=== PATIENT | female | born 1945 | race Caucasian/White ===

== ENCOUNTER 2017-07-29 17:03 | Inpatient (IN) ==
[2017-07-29] MEDS ORDERED: Azithromycin 250 MG TABLET PO ONE (17:08)
[2017-07-29] MEDS ORDERED: *HR* HYDROmorphone (PF) 1 MG/ML SYRINGE IVP ONE (17:10)
[2017-07-29] MEDS ORDERED: Ondansetron 4 MG/2 ML VIAL IVP ONE (17:10)
--- NOTE | 2017-07-29 17:12 | Emergency Department Note ---
Disposition Clinical Impression: COPD (chronic obstructive pulmonary disease), Pneumonia, Hip fracture, left Disposition: Admitted As Inpatient Condition: Fair Referrals: NONE,PCP [Primary Care Provider] - Forms: ED Satisfaction Letter General Adult HPI - General Chief complaint: ED Fall Stated complaint: fall, left hip pain Time Seen by Provider: 07/29/17 17:06 Nursing Notes Reviewed: Yes Vital Signs Reviewed: Yes - Related Data Home Medications Medication Instructions Recorded Confirmed Buspirone HCl [Buspar] 10 mg PO BID 06/17/15 07/20/16 Carvedilol [Coreg] 12.5 mg PO BIDWM 06/17/15 07/20/16 Cholecalciferol (Vitamin D3) 5,000 unit PO BID 06/17/15 07/20/16 [Vitamin D] ClonazePAM [Klonopin] 1 mg PO QID 06/17/15 07/20/16 Docusate [Colace] 100 mg PO BID 06/17/15 07/20/16 Ferrous Sulfate 325 mg PO BIDWM 06/17/15 07/20/16 Fluticasone Propionate Nasal 100 mcg NS DAILY 06/17/15 07/20/16 [Flonase] Furosemide [Lasix] 80 mg PO TID 06/17/15 07/20/16 Gabapentin [Neurontin] 900 mg PO TID 06/17/15 07/20/16 Omeprazole [PriLOSEC] 20 mg PO BIDAC 06/17/15 07/20/16 Phenytoin [Dilantin] 100 mg PO TID 06/17/15 07/20/16 Polyethylene Glycol 3350 [MiraLAX] 17 gm PO DAILY 06/17/15 07/20/16 Potassium Chloride [Klor-Con 60 meq PO TID 06/17/15 07/20/16 Sprinkle] Promethazine [Phenergan] 12.5 mg PO Q4H 06/17/15 07/20/16 Scopolamine Patch [Transderm-Scop] 1.5 mg TD Q72H 06/17/15 07/20/16 Sennosides [Senna] 8.6 mg PO BID 06/17/15 07/20/16 Sertraline [Zoloft] 200 mg PO DAILY 06/17/15 07/20/16 Zolpidem [Ambien] 10 mg PO HS 06/17/15 07/20/16 FentaNYL PATCH [Duragesic] 275 mcg TD Q48H 12/14/15 07/20/16 Fluticasone/Salmeterol [Advair Hfa 2 puff IH BID 12/14/15 07/20/16 115-21 Mcg Inhaler] Ondansetron HCl [Zofran] 4 mg PO Q6H PRN 12/14/15 07/20/16 Albuterol Neb [Proventil Neb] 2.5 mg IH TID 07/06/16 07/20/16 Albuterol Sulfate [Ventolin Hfa] 2 puff IH Q4H PRN 07/06/16 07/20/16 Aspirin 325 mg PO DAILY 07/06/16 07/20/16 BuPROPion SR (12 HR) [Wellbutrin 300 mg PO DAILY 07/06/16 07/20/16 SR] GuaiFENesin ER [Mucinex] 600 mg PO BID 07/06/16 07/20/16 Ipratropium/Albuterol Neb [Duoneb] 3 ml IH Q2H PRN 07/06/16 07/20/16 Morphine Oral CONC [Roxanol] 30 mg PO Q4HR 07/06/16 07/20/16 Nitroglycerin [Nitrostat] 0.4 mg SL Q5M PRN 07/06/16 07/20/16 metOLazone [Zaroxolyn] 2.5 mg PO Q48H 07/06/16 07/20/16 Potassium Chloride [K-Adina] 40 meq PO DAILY 07/20/16 07/20/16 Tiotropium [place] [Spiriva 2 puff IH DAILY 07/20/16 07/20/16 Respimat] Previous Rx's Medication Instructions Recorded Ipratropium/Albuterol Neb [Duoneb] 3 ml IH Q6H #0 12/16/15 predniSONE [PredniSONE] 10 mg PO DAILY #30 tablet 12/16/15 Nitrofurantoin (BID) [Macrobid] 100 mg PO BID #14 capsule 07/22/16 levoFLOXacin [Levaquin] 750 mg PO DAILY #4 tablet 07/22/16 Allergies Allergy/AdvReac Type Severity Reaction Status Date / Time tetanus toxoid, adsorbed Allergy Rash Verified 06/17/15 16:10 baclofen AdvReac Confusion Verified 07/20/16 09:49 butorphanol AdvReac Confusion Verified 07/20/16 09:49 Past Medical History - Past Medical History Medical history: Reports: arthritis, atrial fibrillation, CHF, COPD, coronary artery disease, fibromyalgia, GERD, hyperlipidemia, hypertension, osteoporosis, renal disease, seizures, other Surgical history: Reports: cholecystectomy, hip replacement, orthopedic, other ( neck surgery), SOHAN/BSO, other (hernia/stomach surgery unspecified) Psychiatric history: Reports: anxiety, depression, other 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 - Social History Smoking Status: Former smoker Smokeless Tobacco Status: No Alcohol use: Reports: none Drug use: Reports: none Course Vital Signs Temperature 98 F 07/29/17 17:07 Pulse Rate 84 07/29/17 17:07 Respiratory Rate 18 07/29/17 17:07 Blood Pressure 116/55 07/29/17 17:07 O2 Sat by Pulse Oximetry 90 07/29/17 17:07 Temperature 98 F 07/29/17 17:07 Pulse Rate 140 07/29/17 18:24 Respiratory Rate 20 07/29/17 18:24 Blood Pressure 128/83 07/29/17 18:24 O2 Sat by Pulse Oximetry 86 07/29/17 18:24 Oxygen Delivery Oxygen Delivery Nasal Cannula Medical Decision Making - MDM Narrative Medical decision making narrative: This documentation is done with the assistance of Dragon dictation. There may be inaccuracies in [facility] [employer] [facility] or spelling and typographical errors. I examined this patient and my medical decision-making was reviewed with the Resident Physician. I agree with the documented findings, disposition and treatment plan as described except to the extent set forth below. Patient was seen on arrival by EMS by Dr. Meneses and myself, I agree with his evaluation and management plan, I supervised the care of the patient's stay. Patient fell while walking at the correction. She has a shortened rotated left lower extremity. Denies striking her head no lacerations no injuries noted. Where an x-ray the area. Presuming this is fractured will get presurgery labs. Plan for admission. Hip X-Ray 07/29/17 17:09 IMPRESSION: Acute displaced left intratrochanteric fracture. D/ / Elan Swartz MD / Elan Swartz MD Interpreting Provider: Elan Swartz MD Chest X-Ray 07/29/17 17:20 IMPRESSION: Multifocal airspace disease on the left suggesting pneumonia. Given the history of trauma, aspiration or contusion would be difficult to exclude. There is no pneumothorax. No acute fractures are noted. D/ / Elver Marroquin / Elver Marroquin Interpreting Provider: Elver Marroquin 1837 hrs.: She does have a fracture of her hips. I spoke with orthopedics, Dr. Dial. He is agreeing to see her in consult with admission to medicine. Also she does look like she has airspace disease and pneumonia on the left side. She does not appear to have any rib fractures there was started on antibiotics. Since she is from the nursing facility and met her. Impressions pneumonia, status post fall, left femur fracture - Lab Data Result diagrams: 07/29/17 17:17 07/29/17 17:17 Lab Results 07/29/17 07/29/17 07/29/17 Range/Units 17:17 17:17 17:17 WBC 12.3 H (4.3-11.1) K/mcL RBC 3.13 L (3.82-4.97) M/mcL Hgb 11.0 L (11.5-15.4) g/dL Hct 33.5 L (35.3-44.9) % MCV 107.0 H (83.0-100.0) fL MCH 35.1 H (28.0-33.3) pg MCHC 32.8 (31.6-35.5) g/dL RDW 13.9 (11.5-14.5) % Plt Count 138 L (140-400) K/mcL MPV 10.6 (9.4-12.4) fL Immature Gran % 0.7 (0-4) % Seg Neutrophils % 88.1 % Lymphocytes % 7.7 % Monocytes % 3.3 % Eosinophils % 0.1 % Basophils % 0.1 % Neutrophils # 10.8 H (1.6-8.9) K/mcL Lymphocytes # 0.9 (0.6-4.6) K/mcL Monocytes # 0.4 (0.0-1.3) K/mcL Eosinophils # 0.0 (0.0-0.6) K/mcL Basophils # 0.0 (0.0-0.2) K/mcL PT 13.1 H (9.4-12.1) Seconds INR 1.2 Sodium 132 L (136-145) mEq/L Potassium 3.8 (3.5-5.1) mEq/L Chloride 94 L (98-107) mEq/L Carbon Dioxide 34 H (23-29) mEq/L BUN 29 H (8-23) mg/dL Creatinine 0.70 (0.60-1.20) mg/dL Est GFR ( Amer) > 60 (> 60) Est GFR (Non-Af Amer) > 60 (> 60) BUN/Creatinine Ratio 41 H (6-26) Glucose 130 H (70-105) mg/dL Calculated Osmolality 282 (280-300) Calcium 8.6 (8.6-10.3) mg/dL Troponin I (< 0.04) ng/mL 07/29/17 Range/Units 17:17 WBC (4.3-11.1) K/mcL RBC (3.82-4.97) M/mcL Hgb (11.5-15.4) g/dL Hct (35.3-44.9) % MCV (83.0-100.0) fL MCH (28.0-33.3) pg MCHC (31.6-35.5) g/dL RDW (11.5-14.5) % Plt Count (140-400) K/mcL MPV (9.4-12.4) fL Immature Gran % (0-4) % Seg Neutrophils % % Lymphocytes % % Monocytes % % Eosinophils % % Basophils % % Neutrophils # (1.6-8.9) K/mcL Lymphocytes # (0.6-4.6) K/mcL Monocytes # (0.0-1.3) K/mcL Eosinophils # (0.0-0.6) K/mcL Basophils # (0.0-0.2) K/mcL PT (9.4-12.1) Seconds INR Sodium (136-145) mEq/L Potassium (3.5-5.1) mEq/L Chloride (98-107) mEq/L Carbon Dioxide (23-29) mEq/L BUN (8-23) mg/dL Creatinine (0.60-1.20) mg/dL Est GFR ( Amer) (> 60) Est GFR (Non-Af Amer) (> 60) BUN/Creatinine Ratio (6-26) Glucose (70-105) mg/dL Calculated Osmolality (280-300) Calcium (8.6-10.3) mg/dL Troponin I < 0.03 (< 0.04) ng/mL
[2017-07-29] MEDS ORDERED: 0.9 % Sodium Chloride 1,000 ML IVC SCH ×2 (17:15→20:30)
[2017-07-29 17:28] LABS: Basophils % 0.1 %; Eosinophils % 0.1 %; Hematocrit 33.5 % (35.3-44.9); Immature Granulocytes % 0.7 % (0-4); Lymphocytes # 0.9 K/mcL (0.6-4.6); Lymphocytes % 7.7 %; Mean Corpuscular HGB Conc 32.8 g/dL (31.6-35.5); Mean Corpuscular Hemoglobin 35.1 pg (28.0-33.3); Mean Platelet Volume 10.6 fL (9.4-12.4); Monocytes # 0.4 K/mcL (0.0-1.3); Monocytes % 3.3 %; Neutrophils # 10.8 K/mcL (1.6-8.9); Platelet Count 138 K/mcL (140-400); Red Blood Count 3.13 M/mcL (3.82-4.97); Red Cell Distribution Width 13.9 % (11.5-14.5); Segmented Neutrophils % 88.1 %
[2017-07-29 17:33] LABS: INR 1.2; Prothrombin Time 13.1 Seconds (9.4-12.1)
[2017-07-29 18:12] LABS: BUN/Creatinine Ratio 41 (6-26); Blood Urea Nitrogen 29 mg/dL (8-23); Calcium 8.6 mg/dL (8.6-10.3); Carbon Dioxide 34 mEq/L (23-29); Chloride 94 mEq/L (98-107); Glucose 130 mg/dL (70-105); Osmolality,Calculated 282 (280-300); Potassium 3.8 mEq/L (3.5-5.1); Sodium 132 mEq/L (136-145); eGFR For African Americans > 60 (> 60); eGFR For Non-African Americans > 60 (> 60)
[2017-07-29] MEDS ORDERED: 0.9 % Sodium Chloride 1,000 ML IVC ONE (18:21)
[2017-07-29] MEDS ORDERED: Ipratropium/Albuterol Neb 3 ML IH ONE (18:21)
[2017-07-29] MEDS ORDERED: Piperacillin/Tazobactam 3.375 GM in D5% in Water (Mini-Bag+) 100 ML IVPB ONE (18:36)
[2017-07-29] MEDS ORDERED: Levofloxacin 750 MG/150 ML 750 MG/150 ML BAG IVPB ONE (18:36)
[2017-07-29] MEDS ORDERED: Vancomycin 1,000 MG in D5% in Water 250 ML IVPB ONE (18:36)
--- NOTE | 2017-07-29 18:39 | Emergency Department Note ---
Disposition Clinical Impression: HCAP (healthcare-associated pneumonia) Fracture of hip, left, closed Qualifiers: Encounter type: initial encounter Qualified Code(s): S72.002A - Fracture of unspecified part of neck of left femur, initial encounter for closed fracture Disposition: Admitted As Inpatient Condition: Fair Forms: ED Satisfaction Letter Time of Disposition: 18:50 Fall HPI - General Chief Complaint: ED Fall Stated Complaint: fall, left hip pain Time Seen by Provider: 07/29/17 17:06 Source: patient, EMS Mode of arrival: EMS Limitations: no limitations Nursing Notes Reviewed: Yes Vital Signs Reviewed: Yes - History of Present Illness HPI Narrative: 72 -year-old female is here COPD, CHF, A. fib, presents after mechanical fall possible syncopal fall she says she was walking, she is at the nursing facility [facility], she fell onto her left hip. After that she could not bear any weight. Patient reports that she is also productive cough for the last couple days. Patient is chronically on oxygen she is a mouth breather and takes oxygen through her mouth Via nasal cannula. The patient denies chest pain, abdominal pain, head injury. She denies hitting her head or her neck. Denies fever chills or hemoptysis. 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 Denies: headache, neck pain, numbness, chest pain - Related Data Home Medications Medication Instructions Recorded Confirmed Buspirone HCl [Buspar] 10 mg PO BID 06/17/15 07/20/16 Carvedilol [Coreg] 12.5 mg PO BIDWM 06/17/15 07/20/16 Cholecalciferol (Vitamin D3) 5,000 unit PO BID 06/17/15 07/20/16 [Vitamin D] ClonazePAM [Klonopin] 1 mg PO QID 06/17/15 07/20/16 Docusate [Colace] 100 mg PO BID 06/17/15 07/20/16 Ferrous Sulfate 325 mg PO BIDWM 06/17/15 07/20/16 Fluticasone Propionate Nasal 100 mcg NS DAILY 06/17/15 07/20/16 [Flonase] Furosemide [Lasix] 80 mg PO TID 06/17/15 07/20/16 Gabapentin [Neurontin] 900 mg PO TID 06/17/15 07/20/16 Omeprazole [PriLOSEC] 20 mg PO BIDAC 06/17/15 07/20/16 Phenytoin [Dilantin] 100 mg PO TID 06/17/15 07/20/16 Polyethylene Glycol 3350 [MiraLAX] 17 gm PO DAILY 06/17/15 07/20/16 Potassium Chloride [Klor-Con 60 meq PO TID 06/17/15 07/20/16 Sprinkle] Promethazine [Phenergan] 12.5 mg PO Q4H 06/17/15 07/20/16 Scopolamine Patch [Transderm-Scop] 1.5 mg TD Q72H 06/17/15 07/20/16 Sennosides [Senna] 8.6 mg PO BID 06/17/15 07/20/16 Sertraline [Zoloft] 200 mg PO DAILY 06/17/15 07/20/16 Zolpidem [Ambien] 10 mg PO HS 06/17/15 07/20/16 FentaNYL PATCH [Duragesic] 275 mcg TD Q48H 12/14/15 07/20/16 Fluticasone/Salmeterol [Advair Hfa 2 puff IH BID 12/14/15 07/20/16 115-21 Mcg Inhaler] Ondansetron HCl [Zofran] 4 mg PO Q6H PRN 12/14/15 07/20/16 Albuterol Neb [Proventil Neb] 2.5 mg IH TID 07/06/16 07/20/16 Albuterol Sulfate [Ventolin Hfa] 2 puff IH Q4H PRN 07/06/16 07/20/16 Aspirin 325 mg PO DAILY 07/06/16 07/20/16 BuPROPion SR (12 HR) [Wellbutrin 300 mg PO DAILY 07/06/16 07/20/16 SR] GuaiFENesin ER [Mucinex] 600 mg PO BID 07/06/16 07/20/16 Ipratropium/Albuterol Neb [Duoneb] 3 ml IH Q2H PRN 07/06/16 07/20/16 Morphine Oral CONC [Roxanol] 30 mg PO Q4HR 07/06/16 07/20/16 Nitroglycerin [Nitrostat] 0.4 mg SL Q5M PRN 07/06/16 07/20/16 metOLazone [Zaroxolyn] 2.5 mg PO Q48H 07/06/16 07/20/16 Potassium Chloride [K-Adina] 40 meq PO DAILY 07/20/16 07/20/16 Tiotropium [place] [Spiriva 2 puff IH DAILY 07/20/16 07/20/16 Respimat] Previous Rx's Medication Instructions Recorded Ipratropium/Albuterol Neb [Duoneb] 3 ml IH Q6H #0 12/16/15 predniSONE [PredniSONE] 10 mg PO DAILY #30 tablet 12/16/15 Nitrofurantoin (BID) [Macrobid] 100 mg PO BID #14 capsule 07/22/16 levoFLOXacin [Levaquin] 750 mg PO DAILY #4 tablet 07/22/16 Allergies Allergy/AdvReac Type Severity Reaction Status Date / Time tetanus toxoid, adsorbed Allergy Rash Verified 06/17/15 16:10 baclofen AdvReac Confusion Verified 07/20/16 09:49 butorphanol AdvReac Confusion Verified 07/20/16 09:49 All systems ED: reviewed and negative except as stated. Review of Systems: As Per HPI Constitutional: Reports: weakness. Denies: fever Eyes: Denies: eye pain ENT ED: Denies: ear pain Cardiovascular: Denies: chest pain, palpitations Respiratory: Reports: as per HPI, cough, dyspnea, sputum production Gastrointestinal: Denies: abdominal pain, nausea Genitourinary: Denies: urgency, dysuria Musculoskeletal: Reports: as per HPI, joint swelling, arthralgia. 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 Eyes: PERRLA, sclera anicteric ENT & Mouth: MM dry Neck: normal inspection, neck is supple Resp: Managed at the bases bilaterally, scattered wheezes. CV: RRR, no m/g/r GI: normal inspection, soft, no guarding or rigidity Neuro: A&O3, CNII-XII grossly intact, BERKOWITZ MSK: Externally rotated shortened left lower extremity, with tenderness to palpation with range of motion of the hip even gentle range of motion elicits pain, patient with notable deformity of the hip, neurovascularly intact distally Skin: Poor skin turgor - General Limitations: no limitations General appearance: alert, in no apparent distress Course Course Narrative: 72-year-old female complaining of left hip pain status post fall, question if it was syncopal or not vide EKG, chest x-ray basic lab work given her age and comorbidity suspect that she has a hip fracture. - Reevaluation(s) Reevaluation #1: Patient is evidence of both a hip fracture and a left lower lobe pneumonia, leukocytosis we will start her on H Antibiotics given that she is in a nursing facility, no criteria for sepsis added blood cultures lactate vancomycin, Zosyn , Levaquin admitted to the hospitalist service Dr. Mccallum with orthopedic consult for the hip fracture. Time: 18:50 - Consultations Consultation #1: Yojana consulted for left hip intratrochanteric fx. Will see in hospital admitted to Hospitalist Vital Signs Temperature 98 F 07/29/17 17:07 Pulse Rate 84 07/29/17 17:07 Respiratory Rate 18 07/29/17 17:07 Blood Pressure 116/55 07/29/17 17:07 O2 Sat by Pulse Oximetry 90 07/29/17 17:07 Temperature 98 F 07/29/17 17:07 Pulse Rate 140 07/29/17 18:24 Respiratory Rate 20 07/29/17 18:24 Blood Pressure 128/83 07/29/17 18:24 O2 Sat by Pulse Oximetry 86 07/29/17 18:24 Oxygen Delivery Oxygen Delivery Nasal Cannula Fall - Differential Diagnosis Likely: syncope, traumatic injury, arrhythmia - Medical Records Medical records reviewed: Yes I reviewed the patient's medical records. - Lab Data Lab results reviewed: Yes I reviewed the patient's lab results. Result diagrams: 07/29/17 17:17 07/29/17 17:17 Lab Results 07/29/17 07/29/17 07/29/17 Range/Units 17:17 17:17 17:17 WBC 12.3 H (4.3-11.1) K/mcL RBC 3.13 L (3.82-4.97) M/mcL Hgb 11.0 L (11.5-15.4) g/dL Hct 33.5 L (35.3-44.9) % MCV 107.0 H (83.0-100.0) fL MCH 35.1 H (28.0-33.3) pg MCHC 32.8 (31.6-35.5) g/dL RDW 13.9 (11.5-14.5) % Plt Count 138 L (140-400) K/mcL MPV 10.6 (9.4-12.4) fL Immature Gran % 0.7 (0-4) % Seg Neutrophils % 88.1 % Lymphocytes % 7.7 % Monocytes % 3.3 % Eosinophils % 0.1 % Basophils % 0.1 % Neutrophils # 10.8 H (1.6-8.9) K/mcL Lymphocytes # 0.9 (0.6-4.6) K/mcL Monocytes # 0.4 (0.0-1.3) K/mcL Eosinophils # 0.0 (0.0-0.6) K/mcL Basophils # 0.0 (0.0-0.2) K/mcL PT 13.1 H (9.4-12.1) Seconds INR 1.2 Sodium 132 L (136-145) mEq/L Potassium 3.8 (3.5-5.1) mEq/L Chloride 94 L (98-107) mEq/L Carbon Dioxide 34 H (23-29) mEq/L BUN 29 H (8-23) mg/dL Creatinine 0.70 (0.60-1.20) mg/dL Est GFR ( Amer) > 60 (> 60) Est GFR (Non-Af Amer) > 60 (> 60) BUN/Creatinine Ratio 41 H (6-26) Glucose 130 H (70-105) mg/dL Calculated Osmolality 282 (280-300) Calcium 8.6 (8.6-10.3) mg/dL Troponin I (< 0.04) ng/mL 07/29/17 Range/Units 17:17 WBC (4.3-11.1) K/mcL RBC (3.82-4.97) M/mcL Hgb (11.5-15.4) g/dL Hct (35.3-44.9) % MCV (83.0-100.0) fL MCH (28.0-33.3) pg MCHC (31.6-35.5) g/dL RDW (11.5-14.5) % Plt Count (140-400) K/mcL MPV (9.4-12.4) fL Immature Gran % (0-4) % Seg Neutrophils % % Lymphocytes % % Monocytes % % Eosinophils % % Basophils % % Neutrophils # (1.6-8.9) K/mcL Lymphocytes # (0.6-4.6) K/mcL Monocytes # (0.0-1.3) K/mcL Eosinophils # (0.0-0.6) K/mcL Basophils # (0.0-0.2) K/mcL PT (9.4-12.1) Seconds INR Sodium (136-145) mEq/L Potassium (3.5-5.1) mEq/L Chloride (98-107) mEq/L Carbon Dioxide (23-29) mEq/L BUN (8-23) mg/dL Creatinine (0.60-1.20) mg/dL Est GFR ( Amer) (> 60) Est GFR (Non-Af Amer) (> 60) BUN/Creatinine Ratio (6-26) Glucose (70-105) mg/dL Calculated Osmolality (280-300) Calcium (8.6-10.3) mg/dL Troponin I < 0.03 (< 0.04) ng/mL - Radiology Data Radiology results reviewed: Yes I reviewed the patient's radiology results. Hip X-Ray 07/29/17 17:09 IMPRESSION: Acute displaced left intratrochanteric fracture. D/ / Elan Swartz MD / Elan Swartz MD Interpreting Provider: Elan Swartz MD Chest X-Ray 07/29/17 17:20 IMPRESSION: Multifocal airspace disease on the left suggesting pneumonia. Given the history of trauma, aspiration or contusion would be difficult to exclude. There is no pneumothorax. No acute fractures are noted. D/ / Elver Marroquin / Elver Marroquin Interpreting Provider: Elver Marroquin - EKG Data EKG attestation: Yes I reviewed and interpreted this EKG. EKG shows normal: sinus rhythm (H a fibrillation rate of 133 QRS [address] segment elevations or depressions, irregularly irregular rhythm.) Rate: tachycardia
[2017-07-29] MEDS ORDERED: *HR* HYDROcodone/Acet 5/325 mg TABLET PO PRN (19:52)
[2017-07-29] MEDS ORDERED: Acetaminophen 325 MG TABLET PO PRN (19:52)
[2017-07-29] MEDS ORDERED: Naloxone 0.4 MG/ML INJ IVP PRN (19:52)
[2017-07-29] MEDS ORDERED: Vancomycin 1,250 MG in D5% in Water 250 ML IVPB SCH (20:00)
[2017-07-29] MEDS ORDERED: Ipratropium/Albuterol Neb 3 ML IH PRN (20:02)
[2017-07-29] MEDS ORDERED: Nitroglycerin 0.4 MG TAB.SUBL SL PRN (20:10)
[2017-07-29] MEDS ORDERED: Atropine Sulfate 1% 40 DROP/2 ML BOTTLE SL PRN (20:10)
[2017-07-29] MEDS ORDERED: Bisacodyl 10 MG RECTAL SUPPOSITORY RC PRN (20:10)
[2017-07-29] MEDS ORDERED: dilTIAZem HCl 100 MG in D5% in Water 50 ML IVC SCH (20:15)
[2017-07-29] MEDS ORDERED: metOLazone 2.5 MG TABLET PO SCH (20:15)
--- NOTE | 2017-07-29 20:58 | Internal Med History&Physical ---
Date of Encounter: 07/29/17 Time of Encounter: 20:00 Assessment and Plan (1) Atrial fibrillation with RVR Current visit: Yes Status: Acute Pt developed A Fib RVR in ER,change to sinus before the cardizem drip started. Pt said she has Hx of A Fib but not on anticoagulation except ASA. - Continuous cardiac monitoring - Cardizem drip as needed. - No A fib recorder in chart. - Pt may need surgery, will consult cardio to evaluate risks. (2) DVT prophylaxis Current visit: Yes Status: Acute Heparin SC (3) Acute on chronic respiratory failure with hypoxia Current visit: No Status: Acute Due to COPD exacerbation and pneumonia. Place pt on BiPAP to support oxygenization. (4) COPD exacerbation Current visit: No Status: Resolved Pt has increased O2 requirement. Diffused ronchi b/l, Hx of COPD. Consider COPD exacerbation. - Cont abx, steroid, and bronchidilator - Supportive and symptamatic treatment. - Pulmonology consult to evaluate surgery risk and perioperative management. (5) Sepsis Current visit: No Status: Acute Pt meet sepsis criteria with leukocytosis and tachycardia and desaturation. Initial lactate 0.5. - Cont IVF. - Cont abx. Qualifiers: Sepsis type: Pneumococcus Qualified Code(s): A40.3 - Sepsis due to Streptococcus pneumoniae (6) HCAP (healthcare-associated pneumonia) Current visit: Yes Status: Acute Pt's CXR shows pneumonia. [place] is [place]. Treat pt as HCAP - Vanco, zosyn, and levaquin started from ER, will cont. - F/U blood and sputum culture to adjust Abx. - Check Flu test. Pt is at high risk because she is on vanco, need close monitoring. (7) Fracture of hip, left, closed Current visit: Yes Status: Acute Pain management. Closely monitor pt. DVT prophylaxis. - Orthopedic consult informed. Qualifiers: Encounter type: initial encounter Qualified Code(s): S72.002A - Fracture of unspecified part of neck of left femur, initial encounter for closed fracture Internal Medicine - H&P: HPI Chief complaint: Fall Admitted From: Long-term Nursing Facility Plans for Post Hospital Care: Transfer Alf Facility History of present illness: Ms. Najera is a 72 year old female with Hx of COPD, HTN, CAD s/p stent, CHF, A Fib? [facility] for fall and left hip pain. Pt said she trapped and fell. Denies loss of consciousness. Pt denies head injury. Pt c/o pain of left shoulder, low back and left hip. Pt also c/o cough with yellowish sputum for 5 days, subjective fever, runny nose. Pt denies sore throat or SOB. Pt was found low saturation to 80s. She c/o chest pain but seems it is due to fall. In ER, pt was found left intratrochanteric fracture. She was also found left side pneumonia. Pt was admitted for further management. I discussed with pt regarding CODE STATUS. She clearly told me no CPR but accept intubation. DNRCCA placed. Past Med Surg Social Fam HX - Past Medical History Medical history: arthritis, atrial fibrillation, CHF, COPD, coronary artery disease, fibromyalgia, GERD, hyperlipidemia, hypertension, osteoporosis, renal disease, seizures, other Psychiatric history: anxiety, depression, other - Past Surgical History Surgical History: cholecystectomy, hip replacement, orthopedic, other (neck surgery), SOHAN/BSO, other (hernia/stomach surgery unspecified) - Social History Smoking Status: Former smoker Smokeless Tobacco Status: No Alcohol use: none Drug use: none - Family History Father Living Status: Hx Family Cardiac Disorders: Yes ([place]) Mother Living Status: Hx Family Cancer: Yes (leukemia) Sister Living Status: Hx Family Cardiac Disorders: No Hx Family Respiratory Disorders: No Hx Family Cancer: No Hx Family GI Disorders: No Hx Family Endocrine Disorder: No Hx Family Neuromuscular Disorders: No Hx Family Neurologic Disorders: No Hx Family HEENT Disorders: No Hx Family Autoimmune Disorders: No Brother Living Status: Hx Family Cardiac Disorders: Yes ([place]) Hx Family Neurologic Disorders: Yes (CVA) Internal Medicine - H&P: Meds ClonazePAM [Klonopin] 1 mg PO TID 06/17/15 [History] Docusate [Colace] 100 mg PO BID 06/17/15 [History] Fluticasone Propionate Nasal [Flonase] 100 mcg NS DAILY 06/17/15 [History] Furosemide [Lasix] 80 mg PO TID 06/17/15 [History] Omeprazole [PriLOSEC] 20 mg PO BIDAC 06/17/15 [History] Phenytoin [Dilantin] 100 mg PO TID 06/17/15 [History] Polyethylene Glycol 3350 [MiraLAX] 17 gm PO DAILY 06/17/15 [History] Potassium Chloride [Klor-Con Sprinkle] 60 meq PO TID 06/17/15 [History] Promethazine [Phenergan] 12.5 mg PO Q4H 06/17/15 [History] Sennosides [Senna] 8.6 mg PO BID 06/17/15 [History] Sertraline [Zoloft] 200 mg PO DAILY 06/17/15 [History] Ipratropium/Albuterol Neb [Duoneb] 3 ml IH Q6H #0 12/16/15 [Rx] Albuterol Neb [Proventil Neb] 2.5 mg IH TID 07/06/16 [History] Aspirin 325 mg PO DAILY 07/06/16 [History] BuPROPion SR (12 HR) [Wellbutrin SR] 300 mg PO DAILY 07/06/16 [History] GuaiFENesin ER [Mucinex] 600 mg PO BID 07/06/16 [History] Ipratropium/Albuterol Neb [Duoneb] 3 ml IH Q4H PRN 07/06/16 [History] Morphine Oral CONC [Roxanol] 30 mg PO Q2H 07/06/16 [History] Nitroglycerin [Nitrostat] 0.4 mg SL Q5M PRN 07/06/16 [History] metOLazone [Zaroxolyn] 2.5 mg PO Q48H 07/06/16 [History] Acetaminophen [Tylenol 650mg SUPP] 650 mg RC Q6H PRN 07/29/17 [History] Amino Acids/Protein Hydrolys [Pro-Stat Awc Liquid Packet] 30 ml PO DAILY [History] Atropine Sulfate in 0.9% NaCl [Atropine 0.01%-Ns Eye Drops] 2 drop SL Q2H PRN [History] Bisacodyl [Dulcolax] 10 mg RC DAILY PRN 07/29/17 [History] Buspirone HCl [Buspar] 20 mg PO BID 07/29/17 [History] Calcium Polycarbophil [Fibercon] 1,250 mg PO BID 07/29/17 [History] Carvedilol 12.5 mg PO BID 07/29/17 [History] Dexamethasone [Decadron] 4 mg PO DAILY 07/29/17 [History] FentaNYL PATCH [Duragesic] 200 mcg TD Q72H 07/29/17 [History] Gabapentin [Neurontin] 800 mg PO TID 07/29/17 [History] Hyoscyamine SL [Levsin SL] 0.125 - 0.25 mg SL Q2H PRN 07/29/17 [History] LORazepam [Ativan] 1 mg PO Q4H 07/29/17 [History] Magnesium Oxide [Mag-Ox] 400 mg PO BID 07/29/17 [History] Melatonin 10 mg PO HS 07/29/17 [History] Oxycodone HCl [Roxicodone 30 MG Immed Release] 30 mg PO Q4H PRN 07/29/17 [ History] Primidone [Mysoline] 50 mg PO HS 07/29/17 [History] 3 Allergy/AdvReac Type Severity Reaction Status Date / Time tetanus toxoid, adsorbed Allergy Rash Verified 06/17/15 16:10 baclofen AdvReac Confusion Verified 07/20/16 09:49 butorphanol AdvReac Confusion Verified 07/20/16 09:49 All Systems PM: A 10-system review of systems was performed and is negative for pertinent findings except as documented above in the HPI. - Constitutional Vitals: Temp Pulse Resp BP Pulse Ox 98.8 F 69 16 113/73 92 07/29/17 20:20 07/29/17 20:20 07/29/17 20:20 07/29/17 20:20 07/29/17 20:20 General appearance: Present: mild distress, A&O X 3, answers questions appropriately - Head Head exam: Present: atraumatic, normocephalic - Eye Eye exam: Present: PERRL, conjuntiva pink, sclera anicteric Pupils: Present: PERRL - Neck Neck exam general surgery: Present: supple, trachea midline. Absent: lymphadenopathy - Respiratory Respiratory exam: Present: CTAB, rhonchi (Diffused ronchi b/l, Left > Rt). Absent: accessory muscle use, rales, wheezes - Cardiovascular Cardiovascular exam: Present: irregular rhythm, +S1, +S2, tachycardia. Absent: diastolic murmur, gallop, rubs, systolic murmur - GI/Abdominal GI/Abdominal exam: Present: normal bowel sounds, soft, no peritoneal signs. Absent: distended, tenderness - Extremities Exam Extremities exam: Present: warm, radial pulses palpable and symmetrical. Absent : calf tenderness, cyanotic, pedal edema Additional comments: Left LE ROM limited due to pain, Low back pain, left shoulder pain on passive movement. - Neurological Exam Neurological exam: Present: CN II-XII intact, oriented X3, no focal deficits. Absent: pronater drift, facial droop, speech deficit - Skin Skin exam: Present: dry, intact Internal Med - H&P Results - Labs CBC & Chem 7: 07/29/17 17:17 07/29/17 17:17 - EKG Data -: EKG Interpreted by Myself (A Fib RVR) Rate: tachycardia
[2017-07-29] MEDS ORDERED: Piperacillin/Tazobactam 3.375 GM/200 ML BAG IVPB SCH (21:00)
[2017-07-29] MEDS: *HR* LORazepam 1 MG TABLET PO SCH (21:55)
[2017-07-29] MEDS: *HR* HYDROmorphone (PF) 1 MG/ML SYRINGE IVP PRN (22:03)
[2017-07-29] MEDS: Ipratropium/Albuterol Neb 3 ML IH SCH (22:20)
[2017-07-29] MEDS: *HR* FentaNYL PATCH 100 MCG PATCH TD SCH ×2 (23:28→23:37)
[2017-07-29] MEDS: Magnesium Oxide 400 MG TABLET PO SCH (23:39)
[2017-07-29] MEDS: Primidone 50 MG TABLET PO SCH (23:39)
[2017-07-29] MEDS: Sennosides 8.6 MG TABLET PO SCH (23:39)
[2017-07-30] MEDS: Gabapentin 400 MG CAPSULE PO SCH ×4 (00:02→22:29)
[2017-07-30] MEDS: Furosemide 40 MG TABLET PO SCH ×4 (00:02→16:20)
[2017-07-30] MEDS: Vancomycin 1,250 MG in D5% in Water 250 ML IVPB SCH ×3 (00:33→22:30)
[2017-07-30] MEDS: methylPREDNISolone 125 MG/2 ML VIAL IVP SCH ×3 (00:33→14:36)
[2017-07-30] MEDS: *HR* LORazepam 1 MG TABLET PO SCH ×7 (00:50→22:30)
[2017-07-30] MEDS: Ipratropium/Albuterol Neb 3 ML IH SCH ×4 (03:59→21:33)
[2017-07-30] MEDS: *HR* HYDROmorphone (PF) 1 MG/ML SYRINGE IVP PRN ×3 (04:10→15:50)
[2017-07-30 06:05] LABS: Basophils % 0.1 %; Hematocrit 30.7 % (35.3-44.9); Immature Granulocytes % 1.2 % (0-4); Lymphocytes # 0.4 K/mcL (0.6-4.6); Lymphocytes % 4.8 %; Mean Corpuscular HGB Conc 32.6 g/dL (31.6-35.5); Mean Corpuscular Volume 107.3 fL (83.0-100.0); Mean Platelet Volume 10.2 fL (9.4-12.4); Monocytes # 0.3 K/mcL (0.0-1.3); Monocytes % 3.3 %; Neutrophils # 7.3 K/mcL (1.6-8.9); Nucleated Red Blood Cells 0.2 /100 WBC (0); Platelet Count 114 K/mcL (140-400); Red Blood Count 2.86 M/mcL (3.82-4.97); Red Cell Distribution Width 13.7 % (11.5-14.5); Segmented Neutrophils % 90.6 %
[2017-07-30] MEDS: *HR* Heparin 5,000 UNIT/ML VIAL SQ SCH ×2 (06:12→16:20)
[2017-07-30 06:36] LABS: BUN/Creatinine Ratio 33 (6-26); Blood Urea Nitrogen 19 mg/dL (8-23); Calcium 8.5 mg/dL (8.6-10.3); Carbon Dioxide 37 mEq/L (23-29); Chloride 95 mEq/L (98-107); Glucose 137 mg/dL (70-105); Magnesium 2.2 mg/dL (1.6-2.6); Osmolality,Calculated 292 (280-300); Potassium 4.1 mEq/L (3.5-5.1); Sodium 139 mEq/L (136-145); eGFR For African Americans > 60 (> 60); eGFR For Non-African Americans > 60 (> 60)
[2017-07-30 06:39] LABS: Thyroid Stimulating Hormone 0.272 mcIU/mL (0.340-5.600)
[2017-07-30] MEDS: Levofloxacin 750 MG/150 ML 750 MG/150 ML BAG IVPB SCH (08:31)
[2017-07-30] MEDS: BuPROPion SR (12 HR) 150 MG TABLET PO SCH (08:32)
[2017-07-30] MEDS: Magnesium Oxide 400 MG TABLET PO SCH ×2 (08:34→22:29)
[2017-07-30] MEDS: Aspirin 325 MG TABLET PO SCH (08:35)
[2017-07-30] MEDS: Sennosides 8.6 MG TABLET PO SCH ×2 (08:35→22:28)
[2017-07-30] MEDS: clonazePAM 1 MG TABLET PO SCH ×4 (08:36→22:29)
[2017-07-30 08:49] LABS: Triiodothyronine (T3) Total 0.7 ng/mL (0.87-1.78)
[2017-07-30] MEDS ORDERED: *HR* FentaNYL PATCH 100 MCG PATCH TD SCH (09:00)
[2017-07-30] MEDS ORDERED: Fluticasone Propionate Nasal 50 MCG/SPRAY BOTTLE NS SCH (09:00)
[2017-07-30] MEDS: *HR* OxyCODONE Immed Rel 15 MG TABLET PO PRN ×3 (09:16→14:34)
[2017-07-30] MEDS: Piperacillin/Tazobactam 3.375 GM/200 ML BAG IVPB SCH ×2 (10:07→15:55)
--- NOTE | 2017-07-30 10:19 | Cardiology Consult Note ---
Date of Encounter: 07/30/17 Time of Encounter: 10:11 Assessment and Plan (1) Pre-operative cardiovascular examination Current Visit: Yes Status: Acute H/o CAD with previos PCI. Denies symptoms concerning for unstable angina. She does have limited mobility and is unable to do 4 mets of activity. EKG demonstrates atrial fibrillation with RVR, HR 173, borderline anteriolateral ST depression. Re-peat EKG ordered now that she is NSR. Troponin is negative x4. Check TTE. Further recommendations to follow. (2) CAD (coronary artery disease) Current Visit: Yes Status: Acute H/o remote PCI to the mLAD and mRCA. Last LHC in 2011 showed patent stents and minimal CAD. EF preserved at that time. Continue asa, statin, and bb perioperatively. Qualifiers: Coronary Disease-Associated Artery/Lesion type: [place] artery [place] vs. transplanted heart: [place] heart Associated angina: without angina Qualified Code(s): I25.10 - Atherosclerotic heart disease of [place] coronary artery without angina pectoris (3) Atrial fibrillation with RVR Current Visit: Yes Status: Acute Afib with RVR on presentation. Likely exacerbated by fall and pain. Converted to NSR spontaneously. Continue carvedilol. Documented to not be on AC due to sudden anemia after starting coumadin in the past. She is also a fall risk. Can reconsider AC in the future after surgery. SHe is a CHADS VASC =5 and high risk for CVA. Discussed with patient. Discussion w patient/family: The assessment and plan as outlined above was discussed with the patient and/or family members who expressed understanding and agreement. All questions were answered. Thank you for involving us in the care of your patient. Please call with any questions. History of Present Illness Consult date: 07/30/17 Requesting physician: Elan Nicolas Consult reason: Pre-operative risk evaluation Chief complaint: Fall History of present illness: Ms. Najera is a 72 year old female with a history of CAD s/p remote PCI, atrail fibrillation, end stage COPD on home O2, HTN, and HLD who presented from [facility] after mechanical fall. The is found to have a left hip fracture. Cardiology was consulted for pre-operative cardiovascular risk assessment. She has limited mobility and [facility]. As of note she is enrolled in hospice for her end-stage COPD. On admission she was found to be in atrial fibrillation with RVR that spontaneously resolved. She has a history of PAF. She is not on AC due to developing anemia on coumadin per out-patient cardiology report. She denies current chest pain or palpitations. Reports she uses SL NTG two times a year. The last time was 1-2 weeks ago. She denies increasing SOB or palpitations. C/o occasional pedal edema. Past Med Surg Social Fam HX - Past Medical History Medical history: arthritis, atrial fibrillation, CHF, COPD, coronary artery disease, fibromyalgia, GERD, hyperlipidemia, hypertension, osteoporosis, renal disease, seizures, other Psychiatric history: anxiety, depression, other - Past Surgical History Surgical History: cholecystectomy, hip replacement, orthopedic, other, SOHAN/BSO, other - Social History Smoking Status: Former smoker Smokeless Tobacco Status: No Alcohol use: none Drug use: none - Family History Father Living Status: Hx Family Cardiac Disorders: Yes ([place]) Mother Living Status: Hx Family Cancer: Yes (leukemia) Sister Living Status: Hx Family Cardiac Disorders: No Hx Family Respiratory Disorders: No Hx Family Cancer: No Hx Family GI Disorders: No Hx Family Endocrine Disorder: No Hx Family Neuromuscular Disorders: No Hx Family Neurologic Disorders: No Hx Family HEENT Disorders: No Hx Family Autoimmune Disorders: No Brother Living Status: Hx Family Cardiac Disorders: Yes ([place]) Hx Family Neurologic Disorders: Yes (CVA) Medications and Allergies ClonazePAM [Klonopin] 1 mg PO TID 06/17/15 [History] Docusate [Colace] 100 mg PO BID 06/17/15 [History] Fluticasone Propionate Nasal [Flonase] 100 mcg NS DAILY 06/17/15 [History] Furosemide [Lasix] 80 mg PO TID 06/17/15 [History] Omeprazole [PriLOSEC] 20 mg PO BIDAC 06/17/15 [History] Phenytoin [Dilantin] 100 mg PO TID 06/17/15 [History] Polyethylene Glycol 3350 [MiraLAX] 17 gm PO DAILY 06/17/15 [History] Potassium Chloride [Klor-Con Sprinkle] 60 meq PO TID 06/17/15 [History] Promethazine [Phenergan] 12.5 mg PO Q4H 06/17/15 [History] Sennosides [Senna] 8.6 mg PO BID 06/17/15 [History] Sertraline [Zoloft] 200 mg PO DAILY 06/17/15 [History] Ipratropium/Albuterol Neb [Duoneb] 3 ml IH Q6H #0 12/16/15 [Rx] Albuterol Neb [Proventil Neb] 2.5 mg IH TID 07/06/16 [History] Aspirin 325 mg PO DAILY 07/06/16 [History] BuPROPion SR (12 HR) [Wellbutrin SR] 300 mg PO DAILY 07/06/16 [History] GuaiFENesin ER [Mucinex] 600 mg PO BID 07/06/16 [History] Ipratropium/Albuterol Neb [Duoneb] 3 ml IH Q4H PRN 07/06/16 [History] Morphine Oral CONC [Roxanol] 30 mg PO Q2H 07/06/16 [History] Nitroglycerin [Nitrostat] 0.4 mg SL Q5M PRN 07/06/16 [History] metOLazone [Zaroxolyn] 2.5 mg PO Q48H 07/06/16 [History] Acetaminophen [Tylenol 650mg SUPP] 650 mg RC Q6H PRN 07/29/17 [History] Amino Acids/Protein Hydrolys [Pro-Stat Awc Liquid Packet] 30 ml PO DAILY [History] Atropine Sulfate in 0.9% NaCl [Atropine 0.01%-Ns Eye Drops] 2 drop SL Q2H PRN [History] Bisacodyl [Dulcolax] 10 mg RC DAILY PRN 07/29/17 [History] Buspirone HCl [Buspar] 20 mg PO BID 07/29/17 [History] Calcium Polycarbophil [Fibercon] 1,250 mg PO BID 07/29/17 [History] Carvedilol 12.5 mg PO BID 07/29/17 [History] Dexamethasone [Decadron] 4 mg PO DAILY 07/29/17 [History] FentaNYL PATCH [Duragesic] 200 mcg TD Q72H 07/29/17 [History] Gabapentin [Neurontin] 800 mg PO TID 07/29/17 [History] Hyoscyamine SL [Levsin SL] 0.125 - 0.25 mg SL Q2H PRN 07/29/17 [History] LORazepam [Ativan] 1 mg PO Q4H 07/29/17 [History] Magnesium Oxide [Mag-Ox] 400 mg PO BID 07/29/17 [History] Melatonin 10 mg PO HS 07/29/17 [History] Oxycodone HCl [Roxicodone 30 MG Immed Release] 30 mg PO Q4H PRN 07/29/17 [ History] Primidone [Mysoline] 50 mg PO HS 07/29/17 [History] 3 Allergy/AdvReac Type Severity Reaction Status Date / Time tetanus toxoid, adsorbed Allergy Rash Verified 06/17/15 16:10 baclofen AdvReac Confusion Verified 07/20/16 09:49 butorphanol AdvReac Confusion Verified 07/20/16 09:49 All Systems Review: A 10-system review of systems was performed and is negative for pertinent findings except as documented above in the HPI. Physical Examination Vital Signs, Last 4 Hours Temp Pulse Resp BP Pulse Ox 07/30/17 09:29 91 07/30/17 07:03 98.4 F 67 16 112/53 96 General: Conversant, No Apparent Distress, Other (frail elderly female) HEENT: Atraumatic, Normocephaly, Mucus Membranes Moist Neck: No JVD, Normal carotid pulses Cardiac: Reg Rate and Rhythm, Normal S1 and S2, No Murmur Lungs: Normal Breath Sounds, No Wheeze, Rales, Rhonchi Neuro: Alert and responsive, No focal deficits noted Abdomen: Soft, Non-Tender Skin: No rashes noted on visualized skin Musculoskeletal: No Chest Wall Tenderness Extremities: No Clubbing, No Cyanosis, No Edema, Normal Pulses, Other (left foot internally rotated) Results 07/30/17 05:57 07/30/17 05:57 Lab Results 07/29/17 07/30/17 07/30/17 23:54 05:57 05:57 WBC 8.1 Hgb 10.0 L Hct 30.7 L Plt Count 114 L Sodium Potassium Chloride Carbon Dioxide BUN Creatinine Glucose Calcium Magnesium Troponin I < 0.03 < 0.03 TSH 07/30/17 07/30/17 05:57 05:57 WBC Hgb Hct Plt Count Sodium 139 Potassium 4.1 Chloride 95 L Carbon Dioxide 37 H BUN 19 Creatinine 0.57 L Glucose 137 H Calcium 8.5 L Magnesium 2.2 Troponin I TSH 0.272 L - Imaging and Cardiology Echo: report reviewed Cardiac cath: report reviewed - EKG Interpretation EKG results cardiology: personally reviewed Consult Discharge Plan - Plan Referrals: NONE,PCP [Primary Care Provider] -
--- NOTE | 2017-07-30 11:27 | Internal Med Progress Note ---
Date of Encounter: 07/30/17 Time of Encounter: 10:50 - Assessment and plan (1) Acute on chronic respiratory failure with hypoxia and hypercapnia Current Visit: No Status: Resolved Assessment and plan: Secondary to COPD exacerbation and HCAP continue systemic steroids, bronchodilator support O2 supplementation Broad spectrum IV abx (Vanco, Zosyn, Levaquin), will de-escalate as clinically improves/blood culture reports f/u blood cultures will obtain respiratory viral panel bipap support monitor O2 saturation, goal O2 sat: 88-92% will closely monitor respiratory status (2) COPD exacerbation Current Visit: No Status: Acute Assessment and plan: as listed above (3) HCAP (healthcare-associated pneumonia) Current Visit: Yes Status: Acute Assessment and plan: as listed above (4) Atrial fibrillation with RVR Current Visit: Yes Status: Resolved Assessment and plan: Resolved at this time continue home dose of Carvedilol cardiology on board and consultation appreciated History of Afib, not on AC due to fall risks f/u 2D echo (5) CAD (coronary artery disease) Current Visit: Yes Status: Chronic Assessment and plan: no signs of angina present at this time continue ASA, BB, Statin Qualifiers: Coronary Disease-Associated Artery/Lesion type: [place] artery [place] vs. transplanted heart: [place] heart Associated angina: without angina Qualified Code(s): I25.10 - Atherosclerotic heart disease of [place] coronary artery without angina pectoris (6) Chronic pain Current Visit: No Status: Chronic Assessment and plan: continue home pain meds added Dilaudid 1mg IV q4h prn severe pain pt is noted to have high pain tolerance Qualifiers: Chronic pain type: other chronic pain Qualified Code(s): G89.29 - Other chronic pain (7) DVT prophylaxis Current Visit: Yes Status: Acute Assessment and plan: Heparin sQ (8) Fracture of hip, left, closed Current Visit: Yes Status: Acute Assessment and plan: continue pain control orthopedic evaluation requested Qualifiers: Encounter type: initial encounter Qualified Code(s): S72.002A - Fracture of unspecified part of neck of left femur, initial encounter for closed fracture (9) Sepsis Current Visit: No Status: Resolved Assessment and plan: secondary HCAP continue plan as listed above Qualifiers: Sepsis type: Pneumococcus Qualified Code(s): A40.3 - Sepsis due to Streptococcus pneumoniae - Subjective Interval history: Patient seen and examined at bedside. Currently saturating well on bipap. Pt reported of [facility], and uses 3-4L O2 at baseline. Noted to be on high dose narcotic medications for chronic pain. Requiring high dose of pain medications at this time. Orthopedic surgery consulted for hip fracture. Cardiology consulted for pre-op clearance. - Constitutional Vitals: Temp Pulse Resp BP Pulse Ox 98.4 F 67 12 112/53 98 07/30/17 07:03 07/30/17 07:03 07/30/17 10:45 07/30/17 10:45 07/30/17 10:45 General appearance: Present: A&O X 3 (on bipap support ), no acute distress, answers questions appropriately - Head Head exam: Present: atraumatic, normocephalic - Eye Eye exam: Present: conjuntiva pink, sclera anicteric - Respiratory Respiratory exam: Present: decreased breath sounds. Absent: accessory muscle use, respiratory distress - Cardiovascular Cardiovascular exam: Present: RRR, +S1, +S2. Absent: diastolic murmur, gallop, rubs, systolic murmur - GI/Abdominal GI/Abdominal exam: Present: normal bowel sounds, soft, no peritoneal signs. Absent: distended, tenderness - Extremities Exam Extremities exam: Present: warm, radial pulses palpable and symmetrical. Absent : calf tenderness, cyanotic, pedal edema - Neurological Exam Neurological exam: Present: alert, oriented X3 Internal Medicine: Result - Labs CBC & Chem 7: 07/30/17 05:57 07/30/17 05:57 Labs: Short CBC 07/30/17 Range/Units 05:57 WBC 8.1 (4.3-11.1) K/mcL Hgb 10.0 L (11.5-15.4) g/dL Hct 30.7 L (35.3-44.9) % Plt Count 114 L (140-400) K/mcL Neutrophils # 7.3 (1.6-8.9) K/mcL BMP 07/30/17 05:57 Sodium 139 Potassium 4.1 Chloride 95 L Carbon Dioxide 37 H BUN 19 Creatinine 0.57 L Glucose 137 H Calcium 8.5 L Cardiac Enzymes 07/29/17 07/30/17 Range/Units 23:54 05:57 Troponin I < 0.03 < 0.03 (< 0.04) ng/mL - ABG Interpretation ABG results: PT/INR, D-dimer PT 13.1 Seconds (9.4-12.1) H 07/29/17 17:17 - VTE Documentation of Mechanical Device: Intermittent pneumatic compression device Consult Discharge Plan - Plan Referrals: NONE,PCP [Primary Care Provider] -
--- NOTE | 2017-07-30 15:16 | Orthopedic Consult Note ---
Date of Encounter: 07/30/17 Time of Encounter: 15:13 History of Present Illness Chief complaint: Left hip pain HPI: Ms. Fischer is a 72 year old female who sustained an injury to her left hip when she fell at a retirement facility where she lives. Patient states that she simply fell. She had immediate left hip pain and was able to ambulate. She was brought to the emergency room where x-rays taken foot evidence of a complex left hip fracture. She is admitted for definitive management. Patient denies any other injuries. Patient does have a significant history of multiple medical problems including cardiac disease, chronic obstructive pulmonary disease and thyroid disease. She was in atrial fibrillation with a rapid ventricular response from the emergency room. This broke prior to the start of a Cardizem drip. Patient is also on chronic steroid use. She is also on chronic high-dose narcotics for chronic pain management. Complete history and physical data was reviewed. Please see the completed portion of the medical record. Pertinent orthopedic examination reveals a shortened and rotated left lower extremity. Distal neurosensory exam is grossly intact. I reviewed multiple x- rays. Shoulder x-rays on the left revealed advanced glenohumeral arthritis with acromioclavicular degenerative disease as well. There is a suggestion that there may be several small loose bodies probably within the glenohumeral joint anteriorly. Thoracic spine shows osteopenia. Lumbar spine shows osteopenia as well. No acute spine fractures identified. X-ray of the pelvis reveals a press-fit right total hip arthroplasty without current or acute complicating features. Left hip however shows a complex subtrochanteric/ peritrochanteric-type fracture with extension into the proximal diaphysis of the femur. Laboratory data includes a current normal white blood cell count, a hemoglobin of 10, platelets of 114. Impression: Displaced left subtrochanteric proximal femur fracture Recommendation: I discussed with the patient this is a surgical fracture in the adult. The other option would be bed rest with potentially using traction for a period of time though this would never give her a normal-appearing and functioning hip. The other option would be to proceed with intramedullary nailing with a long nail due to the subtrochanteric position. We discussed the surgical procedure as well as potential risks and complications including but not limited to bleeding infection blood clots nerve injury stiffness malunion nonunion and especially with leg length or rotational deformities. This addition to her high anesthesia risk up front both a cardiac and pulmonary point of view. The patient understands and is requested we proceed with surgery. She has signed informed consent for the surgical procedure. I discussed with the hospitalist the patient's wishes and the current plans. We will tentatively schedule her for surgery tomorrow morning. If her status is stable and improved and medical staff including cardiology is in agreement will proceed with surgery tomorrow. Thank you very much for allowing me to seen care for Mrs. fischer. Sincerely, Choco Dial,DO Past Med Surg Social Fam HX - Past Medical History Medical history: arthritis, atrial fibrillation, CHF, COPD, coronary artery disease, fibromyalgia, GERD, hyperlipidemia, hypertension, osteoporosis, renal disease, seizures, other Psychiatric history: anxiety, depression, other - Past Surgical History Surgical History: cholecystectomy, hip replacement, orthopedic, other, SOHAN/BSO, other - Social History Smoking Status: Former smoker Smokeless Tobacco Status: No Alcohol use: none Drug use: none - Family History Father Living Status: Hx Family Cardiac Disorders: Yes (PR) Mother Living Status: Hx Family Cancer: Yes (leukemia) Sister Living Status: Hx Family Cardiac Disorders: No Hx Family Respiratory Disorders: No Hx Family Cancer: No Hx Family GI Disorders: No Hx Family Endocrine Disorder: No Hx Family Neuromuscular Disorders: No Hx Family Neurologic Disorders: No Hx Family HEENT Disorders: No Hx Family Autoimmune Disorders: No Brother Living Status: Hx Family Cardiac Disorders: Yes (PR) Hx Family Neurologic Disorders: Yes (CVA) Medications and Allergies ClonazePAM [Klonopin] 1 mg PO TID 06/17/15 [History] Docusate [Colace] 100 mg PO BID 06/17/15 [History] Fluticasone Propionate Nasal [Flonase] 100 mcg NS DAILY 06/17/15 [History] Furosemide [Lasix] 80 mg PO TID 06/17/15 [History] Omeprazole [PriLOSEC] 20 mg PO BIDAC 06/17/15 [History] Phenytoin [Dilantin] 100 mg PO TID 06/17/15 [History] Polyethylene Glycol 3350 [MiraLAX] 17 gm PO DAILY 06/17/15 [History] Potassium Chloride [Klor-Con Sprinkle] 60 meq PO TID 06/17/15 [History] Promethazine [Phenergan] 12.5 mg PO Q4H 06/17/15 [History] Sennosides [Senna] 8.6 mg PO BID 06/17/15 [History] Sertraline [Zoloft] 200 mg PO DAILY 06/17/15 [History] Ipratropium/Albuterol Neb [Duoneb] 3 ml IH Q6H #0 12/16/15 [Rx] Albuterol Neb [Proventil Neb] 2.5 mg IH TID 07/06/16 [History] Aspirin 325 mg PO DAILY 07/06/16 [History] BuPROPion SR (12 HR) [Wellbutrin SR] 300 mg PO DAILY 07/06/16 [History] GuaiFENesin ER [Mucinex] 600 mg PO BID 07/06/16 [History] Ipratropium/Albuterol Neb [Duoneb] 3 ml IH Q4H PRN 07/06/16 [History] Morphine Oral CONC [Roxanol] 30 mg PO Q2H 07/06/16 [History] Nitroglycerin [Nitrostat] 0.4 mg SL Q5M PRN 07/06/16 [History] metOLazone [Zaroxolyn] 2.5 mg PO Q48H 07/06/16 [History] Acetaminophen [Tylenol 650mg SUPP] 650 mg RC Q6H PRN 07/29/17 [History] Amino Acids/Protein Hydrolys [Pro-Stat Awc Liquid Packet] 30 ml PO DAILY [History] Atropine Sulfate in 0.9% NaCl [Atropine 0.01%-Ns Eye Drops] 2 drop SL Q2H PRN [History] Bisacodyl [Dulcolax] 10 mg RC DAILY PRN 07/29/17 [History] Buspirone HCl [Buspar] 20 mg PO BID 07/29/17 [History] Calcium Polycarbophil [Fibercon] 1,250 mg PO BID 07/29/17 [History] Carvedilol 12.5 mg PO BID 07/29/17 [History] Dexamethasone [Decadron] 4 mg PO DAILY 07/29/17 [History] FentaNYL PATCH [Duragesic] 200 mcg TD Q72H 07/29/17 [History] Gabapentin [Neurontin] 800 mg PO TID 07/29/17 [History] Hyoscyamine SL [Levsin SL] 0.125 - 0.25 mg SL Q2H PRN 07/29/17 [History] LORazepam [Ativan] 1 mg PO Q4H 07/29/17 [History] Magnesium Oxide [Mag-Ox] 400 mg PO BID 07/29/17 [History] Melatonin 10 mg PO HS 07/29/17 [History] Oxycodone HCl [Roxicodone 30 MG Immed Release] 30 mg PO Q4H PRN 07/29/17 [ History] Primidone [Mysoline] 50 mg PO HS 07/29/17 [History] 3 Allergy/AdvReac Type Severity Reaction Status Date / Time tetanus toxoid, adsorbed Allergy Rash Verified 06/17/15 16:10 baclofen AdvReac Confusion Verified 07/20/16 09:49 butorphanol AdvReac Confusion Verified 07/20/16 09:49 All Systems Reviewed: A 10-system review of systems was performed and is negative for pertinent findings except as documented above in the HPI. Physical Exam - Constitutional Vitals: Temp Pulse Resp BP Pulse Ox 98.5 F 64 16 104/48 98 07/30/17 11:46 07/30/17 11:46 07/30/17 11:46 07/30/17 11:46 07/30/17 11:46 Results - Labs Result Diagrams: 07/30/17 05:57 07/30/17 05:57 Labs: Abnormal lab results RBC 2.86 M/mcL (3.82-4.97) L 07/30/17 05:57 Hgb 10.0 g/dL (11.5-15.4) L 07/30/17 05:57 Hct 30.7 % (35.3-44.9) L 07/30/17 05:57 MCV 107.3 fL (83.0-100.0) H 07/30/17 05:57 MCH 35.0 pg (28.0-33.3) H 07/30/17 05:57 Plt Count 114 K/mcL (140-400) L 07/30/17 05:57 Lymphocytes # 0.4 K/mcL (0.6-4.6) L 07/30/17 05:57 Nucleated RBCs/100 WBC 0.2 /100 WBC (0) H 07/30/17 05:57 PT 13.1 Seconds (9.4-12.1) H 07/29/17 17:17 Chloride 95 mEq/L (98-107) L 07/30/17 05:57 Carbon Dioxide 37 mEq/L (23-29) H 07/30/17 05:57 Creatinine 0.57 mg/dL (0.60-1.20) L 07/30/17 05:57 BUN/Creatinine Ratio 33 (6-26) H 07/30/17 05:57 Glucose 137 mg/dL (70-105) H 07/30/17 05:57 Calcium 8.5 mg/dL (8.6-10.3) L 07/30/17 05:57 TSH 0.272 mcIU/mL (0.340-5.600) L 07/30/17 05:57 Total T3 0.70 ng/mL (0.87-1.78) L 07/30/17 05:57 H & H 07/30/17 Range/Units 05:57 Hgb 10.0 L (11.5-15.4) g/dL Hct 30.7 L (35.3-44.9) % All other labs normal. - Diagnostic results Shoulder x-ray: image reviewed Hip AP/Lateral x-ray: image reviewed Thoracic AP/Lateral x-ray: image reviewed Lumbar AP/lateral x-ray: image reviewed Consult Discharge Plan - Plan Referrals: NONE,PCP [Primary Care Provider] -
[2017-07-30 17:08] LABS: Bilirubin,Urine Negative (Negative); Blood,Urine Negative (Negative); Clarity,Urine Clear (Clear); Color,Urine Yellow (Yellow); Glucose,Urine (UA) Normal (Normal); Ketones,Urine Negative (Negative); Leukocyte Esterase,Urine Negative (Negative); Nitrite,Urine Negative (Negative); Protein,Urine Negative (Neg-Trace); Specific Gravity,Urine 1.011 (1.010-1.025); Urobilinogen,Urine Normal (Normal)
[2017-07-30 18:14] LABS: Adenovirus Not Detected (Not Detect); Bordetella Pertussis Not Detected (Not Detect); Chlamydophila pneumoniae Not Detected (Not Detect); Coronavirus 229E Not Detected (Not Detect); Coronavirus HKU1 Not Detected (Not Detect); Coronavirus NL63 Not Detected (Not Detect); Coronavirus OC43 Not Detected (Not Detect); Human Metapneumovirus Not Detected (Not Detect); Human Rhinovirus/Enterovirus Not Detected (Not Detect); Influenza A Subtype 2009 H1 Not Detected (Not Detect); Influenza A Untypeable Not Detected (Not Detect); Influenza B Not Detected (Not Detect); Mycoplasma pneumoniae Not Detected (Not Detect); Parainfluenza Virus 1 Not Detected (Not Detect); Parainfluenza Virus 2 Not Detected (Not Detect); Parainfluenza Virus 3 Not Detected (Not Detect); Parainfluenza Virus 4 Not Detected (Not Detect); Respiratory Syncytial Virus Not Detected (Not Detect)
[2017-07-30] MEDS: Melatonin 3 MG TABLET PO SCH ×2 (22:29)
[2017-07-30] MEDS: Primidone 50 MG TABLET PO SCH (22:29)
[2017-07-31] MEDS: methylPREDNISolone 125 MG/2 ML VIAL IVP SCH ×3 (00:24→18:18)
[2017-07-31] MEDS: Piperacillin/Tazobactam 3.375 GM/200 ML BAG IVPB SCH ×3 (00:24→18:34)
[2017-07-31] MEDS: *HR* HYDROmorphone (PF) 1 MG/ML SYRINGE IVP PRN ×11 (00:24→20:34)
[2017-07-31] MEDS: *HR* LORazepam 1 MG TABLET PO SCH ×5 (00:25→20:33)
[2017-07-31] MEDS: Ipratropium/Albuterol Neb 3 ML IH SCH ×4 (04:30→22:30)
[2017-07-31] MEDS: *HR* Heparin 5,000 UNIT/ML VIAL SQ SCH ×2 (05:39→18:21)
[2017-07-31 05:44] LABS: Basophils % 0.1 %; Hematocrit 28.8 % (35.3-44.9); Hemoglobin 9.5 g/dL (11.5-15.4); Immature Granulocytes % 1.1 % (0-4); Lymphocytes # 0.6 K/mcL (0.6-4.6); Lymphocytes % 6.8 %; Mean Corpuscular Hemoglobin 34.5 pg (28.0-33.3); Mean Corpuscular Volume 104.7 fL (83.0-100.0); Mean Platelet Volume 10.3 fL (9.4-12.4); Monocytes # 0.4 K/mcL (0.0-1.3); Monocytes % 4.4 %; Neutrophils # 7.3 K/mcL (1.6-8.9); Platelet Count 145 K/mcL (140-400); Red Blood Count 2.75 M/mcL (3.82-4.97); Red Cell Distribution Width 13.4 % (11.5-14.5); Segmented Neutrophils % 87.6 %
[2017-07-31 06:03] LABS: BUN/Creatinine Ratio 23 (6-26); Blood Urea Nitrogen 18 mg/dL (8-23); Calcium 8.6 mg/dL (8.6-10.3); Carbon Dioxide 37 mEq/L (23-29); Chloride 91 mEq/L (98-107); Glucose 152 mg/dL (70-105); Magnesium 1.7 mg/dL (1.6-2.6); Osmolality,Calculated 287 (280-300); Potassium 3.7 mEq/L (3.5-5.1); Sodium 136 mEq/L (136-145); eGFR For African Americans > 60 (> 60); eGFR For Non-African Americans > 60 (> 60)
[2017-07-31] MEDS ORDERED: Aminoglycoside Consult 1 EACH MC ONE (08:07)
--- NOTE | 2017-07-31 10:33 | Anesthesia Evaluation PreOp ---
Date of Encounter: 07/31/17 Time of Encounter: 10:20 - Past History Planned Operation: hip nailing Cardiac History: [place], CHF, HTN, Hyperlipidemia, Arrhythmia (At time of admission was in afib with RVR, is now controlled and rhythm reverted to sinus) Pulmonary History: Former smoker, COPD ([facility] with end stage COPD. Her baseline is 4L/O2 usually but has needed up to 10 L. Is currently on Bipap to maintain O2 sats in 88-92 range. 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 History: Seizures Other Medical History: GERD Anesthesia History: No Prior Anesthetic Complications, Past Anesthesia Alcohol Use: none Drug use: none Medications and Allergies ClonazePAM [Klonopin] 1 mg PO TID 06/17/15 [History] Docusate [Colace] 100 mg PO BID 06/17/15 [History] Fluticasone Propionate Nasal [Flonase] 100 mcg NS DAILY 06/17/15 [History] Furosemide [Lasix] 80 mg PO TID 06/17/15 [History] Omeprazole [PriLOSEC] 20 mg PO BIDAC 06/17/15 [History] Phenytoin [Dilantin] 100 mg PO TID 06/17/15 [History] Polyethylene Glycol 3350 [MiraLAX] 17 gm PO DAILY 06/17/15 [History] Potassium Chloride [Klor-Con Sprinkle] 60 meq PO TID 06/17/15 [History] Promethazine [Phenergan] 12.5 mg PO Q4H 06/17/15 [History] Sennosides [Senna] 8.6 mg PO BID 06/17/15 [History] Sertraline [Zoloft] 200 mg PO DAILY 06/17/15 [History] Ipratropium/Albuterol Neb [Duoneb] 3 ml IH Q6H #0 12/16/15 [Rx] Albuterol Neb [Proventil Neb] 2.5 mg IH TID 07/06/16 [History] Aspirin 325 mg PO DAILY 07/06/16 [History] BuPROPion SR (12 HR) [Wellbutrin SR] 300 mg PO DAILY 07/06/16 [History] GuaiFENesin ER [Mucinex] 600 mg PO BID 07/06/16 [History] Ipratropium/Albuterol Neb [Duoneb] 3 ml IH Q4H PRN 07/06/16 [History] Morphine Oral CONC [Roxanol] 30 mg PO Q2H 07/06/16 [History] Nitroglycerin [Nitrostat] 0.4 mg SL Q5M PRN 07/06/16 [History] metOLazone [Zaroxolyn] 2.5 mg PO Q48H 07/06/16 [History] Acetaminophen [Tylenol 650mg SUPP] 650 mg RC Q6H PRN 07/29/17 [History] Amino Acids/Protein Hydrolys [Pro-Stat Awc Liquid Packet] 30 ml PO DAILY [History] Atropine Sulfate in 0.9% NaCl [Atropine 0.01%-Ns Eye Drops] 2 drop SL Q2H PRN [History] Bisacodyl [Dulcolax] 10 mg RC DAILY PRN 07/29/17 [History] Buspirone HCl [Buspar] 20 mg PO BID 07/29/17 [History] Calcium Polycarbophil [Fibercon] 1,250 mg PO BID 07/29/17 [History] Carvedilol 12.5 mg PO BID 07/29/17 [History] Dexamethasone [Decadron] 4 mg PO DAILY 07/29/17 [History] FentaNYL PATCH [Duragesic] 200 mcg TD Q72H 07/29/17 [History] Gabapentin [Neurontin] 800 mg PO TID 07/29/17 [History] Hyoscyamine SL [Levsin SL] 0.125 - 0.25 mg SL Q2H PRN 07/29/17 [History] LORazepam [Ativan] 1 mg PO Q4H 07/29/17 [History] Magnesium Oxide [Mag-Ox] 400 mg PO BID 07/29/17 [History] Melatonin 10 mg PO HS 07/29/17 [History] Oxycodone HCl [Roxicodone 30 MG Immed Release] 30 mg PO Q4H PRN 07/29/17 [ History] Primidone [Mysoline] 50 mg PO HS 07/29/17 [History] 3 Allergy/AdvReac Type Severity Reaction Status Date / Time tetanus toxoid, adsorbed Allergy Rash Verified 06/17/15 16:10 baclofen AdvReac Confusion Verified 07/20/16 09:49 butorphanol AdvReac Confusion Verified 07/20/16 09:49 - Meds/Allergy Pre-op Review Medications Reviewed: Yes Allergies Reviewed: Yes Beta Blockers on Current Med List: No Anesthesia Results - Labs 07/31/17 05:34 07/31/17 05:34 - Imaging EKG: report reviewed Anesthesia Exam Selected Entries 07/31/17 06:34 07/31/17 10:30 Temperature 98.3 F Pulse Rate 62 Respiratory Rate 16 Blood Pressure 124/59 O2 Sat by Pulse Oximetry 95 Fraction of Inspired Oxygen % 80 Oxygen Delivery Method BiPAP Weight: 75 kg NPO (# of Hours): over 12 hours - HEENT Pupil (Motor): Pupils equal Mallampati: I Teeth: Edentulous Oral Opening: Greater than 3 - Cardiac Rhythm: Regular Murmur: None - Pulmonary Breath Sounds: bilateral Rales (dyspneic at rest, on BIPAP) Respiratory Effort: Labored Anesthesia Assess/Plan ASA Score: 4 Modified Robert Scale for Level of Consciousness: Cooperative, oriented, and tranquil Anesthetic Plan: General Monitoring Plan: Standard Monitors Recovery Plan: PACU (Discussed with patient at length her increased anesthetic risks. Discussed that she may not be able to get off ventilator, may find herself waking up in ICU. May need to limit post operative narcotics if breathing is inadequate. Patient is aware of these issues as well as others and she wishes to proceed. She is aware she is very high risk but feels she has no real recourse.)
--- NOTE | 2017-07-31 10:37 | Internal Med Progress Note ---
Date of Encounter: 07/31/17 Time of Encounter: 10:10 - Assessment and plan (1) Acute on chronic respiratory failure with hypoxia and hypercapnia Current Visit: No Status: Acute Assessment and plan: Secondary to COPD exacerbation and HCAP continue systemic steroids, bronchodilator support O2 supplementation Broad spectrum IV abx (Vanco, Zosyn, Levaquin), will de-escalate as clinically improves/blood culture reports f/u blood cultures respiratory viral panel negative bipap support monitor O2 saturation, goal O2 sat: 88-92% will closely monitor respiratory status (2) COPD exacerbation Current Visit: No Status: Acute Assessment and plan: as listed above (3) HCAP (healthcare-associated pneumonia) Current Visit: Yes Status: Acute Assessment and plan: as listed above (4) Atrial fibrillation with RVR Current Visit: Yes Status: Resolved Assessment and plan: Resolved at this time continue home dose of Carvedilol cardiology on board and consultation appreciated History of Afib, not on AC due to fall risks 2D echo: LVEF 55-60%. Moderate pulmonary hypertension. No segmental dysfunction. Mild left ventricular diastolic dysfunction. No significant valvular dysfunction. (5) CAD (coronary artery disease) Current Visit: Yes Status: Chronic Assessment and plan: no signs of angina present at this time continue ASA, BB, Statin Qualifiers: Coronary Disease-Associated Artery/Lesion type: [place] artery [place] vs. transplanted heart: [place] heart Associated angina: without angina Qualified Code(s): I25.10 - Atherosclerotic heart disease of [place] coronary artery without angina pectoris (6) Chronic pain Current Visit: No Status: Chronic Assessment and plan: continue home pain meds Dilaudid 1mg IV q4h prn severe pain pt is noted to have high pain tolerance Qualifiers: Chronic pain type: other chronic pain Qualified Code(s): G89.29 - Other chronic pain (7) DVT prophylaxis Current Visit: Yes Status: Acute Assessment and plan: Heparin sQ (8) Fracture of hip, left, closed Current Visit: Yes Status: Acute Assessment and plan: continue pain control orthopedic evaluation evaluation appreciated scheduled for surgical repair later today (07/31/17) Qualifiers: Encounter type: initial encounter Qualified Code(s): S72.002A - Fracture of unspecified part of neck of left femur, initial encounter for closed fracture (9) Sepsis Current Visit: No Status: Resolved Assessment and plan: secondary HCAP continue plan as listed above Qualifiers: Sepsis type: Pneumococcus Qualified Code(s): A40.3 - Sepsis due to Streptococcus pneumoniae - Subjective Interval history: Patient seen and examined at bedside. Currently saturating well on bipap. Scheduled for surgery for displaced left subtrochanteric proximal femur fracture Given patient's lung disease, pt at high risk for being a difficult extubation. R/B discussed with the patient, and she wishes to proceed with surgery Cardiology evaluation appreciated, pt at intermediate risk for orthopedic surgery - Constitutional Vitals: Temp Pulse Resp BP Pulse Ox 98.3 F 62 20 124/59 95 07/31/17 06:34 07/31/17 06:34 07/31/17 10:30 07/31/17 06:34 07/31/17 10:30 General appearance: Present: A&O X 3 (on bipap support ), no acute distress, answers questions appropriately - Head Head exam: Present: atraumatic, normocephalic - Eye Eye exam: Present: conjuntiva pink, sclera anicteric - Respiratory Respiratory exam: Present: decreased breath sounds. Absent: respiratory distress, wheezes - Cardiovascular Cardiovascular exam: Present: RRR, +S1, +S2. Absent: diastolic murmur, gallop, rubs, systolic murmur - GI/Abdominal GI/Abdominal exam: Present: normal bowel sounds, soft, no peritoneal signs. Absent: distended, tenderness - Extremities Exam Extremities exam: Present: warm, radial pulses palpable and symmetrical. Absent : calf tenderness, cyanotic, pedal edema - Neurological Exam Neurological exam: Present: alert, oriented X3 Internal Medicine: Result - Labs CBC & Chem 7: 07/31/17 05:34 07/31/17 05:34 Labs: Short CBC 07/31/17 Range/Units 05:34 WBC 8.3 (4.3-11.1) K/mcL Hgb 9.5 L (11.5-15.4) g/dL Hct 28.8 L (35.3-44.9) % Plt Count 145 (140-400) K/mcL Neutrophils # 7.3 (1.6-8.9) K/mcL BMP 07/31/17 05:34 Sodium 136 Potassium 3.7 Chloride 91 L Carbon Dioxide 37 H BUN 18 Creatinine 0.77 Glucose 152 H Calcium 8.6 Urine 07/30/17 Range/Units 16:55 Urine Color Yellow (Yellow) Urine Clarity Clear (Clear) Urine pH 6.0 (5.0-8.0) pH Units Ur Specific Mobile 1.011 (1.010-1.025) Urine Protein Negative (Neg-Trace) mg/dL Urine Glucose (UA) Normal (Normal) mg/dL - ABG Interpretation ABG results: PT/INR, D-dimer PT 13.1 Seconds (9.4-12.1) H 07/29/17 17:17 - Impressions Impressions Echocardiogram 07/30/17 10:32 Impressions: LVEF 55-60%. Moderate pulmonary hypertension. No segmental dysfunction. Mild left ventricular diastolic dysfunction. No significant valvular dysfunction. Left Ventricular Wall Motion: Rest Echo Findings All wall segments showed normal motion. Findings: Study Quality * Technically adequate exam. Right Ventricle * Normal right ventricular structure and function. Left Atrium * Normal left atrial size. Right Atrium * Normal right atrial size. Aortic Valve * Trileaflet aortic valve with normal function. Interatrial Septum * No evidence of PFO by color Doppler. Aorta * Normally sized aortic root. Pericardium * The pericardium appears normal. ECG Findings * Normal sinus rhythm. Mitral Valve * Normal mitral valve structure. * Trace mitral regurgitation. * No mitral stenosis. Tricuspid Valve * Trace tricuspid regurgitation. * No tricuspid stenosis. * Estimated RVSP is 48 mmHg. * Moderate pulmonary hypertension. Pulmonic Valve * No pulmonic stenosis. * Pulmonic valve is not well visualized. * Trace pulmonic regurgitation. Left Ventricle * LVEF 55-60%. * No segmental dysfunction. * Mild left ventricular diastolic dysfunction. IVC * The IVC is dilated. * > 50% respiratory change - VTE Documentation of Mechanical Device: Graduated compression elastic hosiery Consult Discharge Plan - Plan Referrals: NONE,PCP [Primary Care Provider] -
[2017-07-31] MEDS: BuPROPion SR (12 HR) 150 MG TABLET PO SCH (10:54)
[2017-07-31] MEDS: Levofloxacin 750 MG/150 ML 750 MG/150 ML BAG IVPB SCH (10:54)
[2017-07-31] MEDS: clonazePAM 1 MG TABLET PO SCH ×2 (10:55→21:54)
[2017-07-31] MEDS: Furosemide 40 MG TABLET PO SCH ×2 (10:55→18:17)
[2017-07-31] MEDS: Aspirin 325 MG TABLET PO SCH (10:55)
[2017-07-31] MEDS ORDERED: ceFAZolin 2,000 MG in Water for inj. (sterile) 20 ML IVP ONE (11:10)
[2017-07-31] MEDS ORDERED: Acetaminophen IV 1,000 MG/100 ML INFUS..BTL ONE (11:17)
[2017-07-31] MEDS ORDERED: *HR* FentaNYL PATCH 100 MCG PATCH TD STA ×2 (11:29→15:44)
[2017-07-31] MEDS ORDERED: *HR* FentaNYL (PF) 100 MCG/2 ML VIAL ONE (11:52)
--- NOTE | 2017-07-31 14:43 | Operative Note ---
Date of procedure: 07/31/17 Pre-op diagnosis: Displaced comminuted subtrochanteric fracture left proximal femur Post-op diagnosis: same Procedure: #1. Open reduction internal fixation of left proximal femur fracture #2. Intramedullary nailing left femur fracture #3. Fluoroscopic guidance for IM nailing and ORIF left proximal femur fracture Implants: Synthes 14 mm x 340 mm x 130 degree angle left TFNA, 95 mm x 11 mm TFNA helical blade, a 5 mm distal locking screw, a 1.7 mm multiple strand cable and a 16- gauge stainless steel wire Complications: None Anesthesia: GETA Surgeon: Choco Dial Was there an assistant professor surgical technology present: No Estimated blood loss (cc): 250 Specimen: None Condition: stable Disposition: PACU Procedure in Detail: Gross findings: Preoperative x-rays revealed a complex subtrochanteric type fracture of the left proximal femur. This is associated with some arthritic changes about the left hip. Fracture was difficult to fully evaluate on plain x -rays, intraoperative fluoroscopic views taken when fracture reduction was being performed revealed a complex fracture. This had comminution into the greater trochanter as well as oblique fracture extending anterior proximal to posterior distal in the subtrochanteric region. The fracture was treated by combination of an open reduction with internal fixation utilizing wires and a cable as well as intramedullary nailing with a long nail. Multiplane fluoroscopy was used on the surgical procedure to help guide the reduction and verify ultimate fracture position and fracture implants. Procedure patient was taken to the operating room and administered a general anesthesia while on the hospital bed. Patient was then transferred to the [facility] fracture table. Left lower extremity was placed in longitudinal traction right lower extremity was positioned out of harm's way and well leg wong. Fluoroscopy was introduced and used to guide the initial reduction which was accomplished with a combination of traction slight adduction and and minimal rotation. The fracture was able to reduced into improved position though there was still some separation of the fragments. The left hip and the entire leg down past the knee were now prepped and draped in normal standard fashion for surgery. Pulmonary incision was made above the level of the trochanter. Dissection was carried to the saphenous tissues down the level of the tensor fascia julieth. This was split parallel with its fibers and dissection was carried directly down onto the greater trochanter. Initial pin was placed into the femur through the tip the greater trochanter. The trochanter was opened up with the reamer though marked comminution was noted. At this time a second incision was created laterally about the level of the lesser trochanter. This was for the open reduction as well as for placement of the helical blade. Incision was made and dissection was carried there is obtained his tissues through the fascia julieth through the vastus lateralis down to the fracture site. Marked amount of fracture Hematoma was encountered and evacuated. Fracture reduction was improved upon by placing a cerclage wire around the distal aspects of the fracture. No proximal Wyer or cable was placed due to the need to place a helical blade to the same area of the fracture. At this time the canal was reamed with the flexible reamers up to and including a size 15.5 mm. The nail length was measured and a 14 mm x 340 mm nail was selected. The nail was initially placed though I was unhappy with the persistent formulate the fracture site. For this reason the jute bag cutting machine operator hole was changed posteriorly and 8 morning type reamer was used to open up the posterior proximal trochanter. The selected nail was placed upon the first insertion jig and passed through the entrance in the trochanter across the fracture site and impacted until it was seated in appropriate position. This gave excellent approximation of the fracture in multiple planes. At this time the helical blade insertion jig was placed and guided pin was driven into the femoral head in a central position is verified with multiple planes on fluoroscopy. Pin length was measured and a 95 mm helical blade length was selected. Head and neck were then reamed. The helical blade was then placed and impacted into the subchondral bone with good purchase. The helical blade was then locked from rotation. The fracture site was now compressed. Excellent overall fixation was noted. At this time the insertion jig was removed. A 1.7 mm braided cable was then placed around the femur at the fracture site just above the level of the helical blade. This was placed below the level of the lesser trochanter. The cable was placed and tightened and then crimped and cut with excellent fixation noted. Due to the subtrochanteric type extension a decision was made to proceed with a distal locking screw. Fluoroscopy was introduced distally used to place a distal locking screw utilizing freehand technique with "perfect circles". Good purchase of the screw was noted. At this time multiplane fluoroscopy was performed verifying excellent position of the fracture implants. Wounds irrigated and closed. 2 proximal incisions were closed with #1 Vicryl in the fascia followed by combination of #1 in the deep tissue and then [address] an inverted interrupted manner immediate subcutaneous tissue followed by skin approximation of all incisions with stainless steel clips. Sterile dressings consisting of operative foam were applied and secured to the 3 incisions. Patient was then transferred from the operating table to the hospital bed and transported to the postanesthesia care unit in stable and satisfactory condition. All sponge and needle evidence for counts are correct. No specimens were sent for pathology.
[2017-07-31] MEDS ORDERED: Naloxone 0.4 MG/ML INJ IVP PRN (15:44)
[2017-07-31] MEDS ORDERED: *HR* HYDROmorphone (PF) 1 MG/ML SYRINGE IVP PRN (15:44)
[2017-07-31] MEDS ORDERED: Nitroglycerin 0.4 MG TAB.SUBL SL PRN (15:44)
[2017-07-31] MEDS ORDERED: Atropine Sulfate 1% 40 DROP/2 ML BOTTLE SL PRN (15:44)
[2017-07-31] MEDS ORDERED: Ipratropium/Albuterol Neb 3 ML IH PRN (15:44)
[2017-07-31] MEDS ORDERED: Acetaminophen 325 MG TABLET PO PRN (15:44)
[2017-07-31] MEDS ORDERED: Bisacodyl 10 MG RECTAL SUPPOSITORY RC PRN (15:44)
[2017-07-31] MEDS ORDERED: Ipratropium/Albuterol Neb 3 ML ONE (16:21)
--- NOTE | 2017-07-31 18:06 | Anesthesia Evaluation Post Op ---
Date of Encounter: 07/31/17 Time of Encounter: 15:20 - Vital Signs Vital Signs: VSS. Patient maintaining O2 saturations in low to mid 90's on Bipap. - Lungs Lungs: Rales - Airway Airway: Non-obstructed - Cardiovascular Regular Rate - Mental Status Mental Status: Alert & Oriented, Answers Appropriately - Nausea Vomiting Nausea Vomiting: Not Present - Hydration Hydration: NPO - Discharge PostOp Status: Transfer Patient to floor (Patient is in the same, if not better pulmonary condition than when she arrived to the OR. I feel she is in as good a condition cardiopulmonary sprague that we can possibly hope. OK to transfer to floor and continue on Bipap.)
[2017-07-31] MEDS: *HR* OxyCODONE Immed Rel 15 MG TABLET PO PRN (18:48)
[2017-07-31] MEDS: metOLazone 2.5 MG TABLET PO SCH (20:33)
[2017-07-31] MEDS: Gabapentin 400 MG CAPSULE PO SCH (21:52)
[2017-07-31] MEDS: Melatonin 3 MG TABLET PO SCH (21:53)
[2017-07-31] MEDS: Primidone 50 MG TABLET PO SCH (21:55)
[2017-07-31] MEDS: Sennosides 8.6 MG TABLET PO SCH (21:55)
[2017-07-31] MEDS: Magnesium Oxide 400 MG TABLET PO SCH (21:56)
[2017-07-31] MEDS ORDERED: Vancomycin 750 MG in D5% in Water 250 ML IVPB SCH ×3 (22:00→22:30)
[2017-07-31] MEDS ORDERED: *HR* Metoprolol 5 MG/5 ML VIAL IVP PRN (23:03)
[2017-08-01] MEDS: *HR* LORazepam 1 MG TABLET PO SCH ×8 (01:05→23:18)
[2017-08-01] MEDS: Piperacillin/Tazobactam 3.375 GM/200 ML BAG IVPB SCH ×4 (01:05→23:18)
[2017-08-01] MEDS: methylPREDNISolone 125 MG/2 ML VIAL IVP SCH ×3 (01:05→20:27)
[2017-08-01] MEDS: Ipratropium/Albuterol Neb 3 ML IH SCH ×4 (04:27→21:22)
[2017-08-01] MEDS: *HR* HYDROmorphone (PF) 1 MG/ML SYRINGE IVP PRN ×3 (04:43→23:18)
[2017-08-01 05:50] LABS: Basophils % 0.1 %; Eosinophils % 0.1 %; Hemoglobin 8.3 g/dL (11.5-15.4); Immature Granulocytes % 0.9 % (0-4); Lymphocytes # 0.7 K/mcL (0.6-4.6); Lymphocytes % 7.6 %; Mean Corpuscular HGB Conc 33.2 g/dL (31.6-35.5); Mean Corpuscular Hemoglobin 34.2 pg (28.0-33.3); Mean Corpuscular Volume 102.9 fL (83.0-100.0); Mean Platelet Volume 10.3 fL (9.4-12.4); Monocytes # 0.5 K/mcL (0.0-1.3); Neutrophils # 7.4 K/mcL (1.6-8.9); Platelet Count 183 K/mcL (140-400); Red Blood Count 2.43 M/mcL (3.82-4.97); Red Cell Distribution Width 13.4 % (11.5-14.5); Segmented Neutrophils % 85.3 %
[2017-08-01 06:20] LABS: BUN/Creatinine Ratio 25 (6-26); Blood Urea Nitrogen 20 mg/dL (8-23); Calcium 8.4 mg/dL (8.6-10.3); Carbon Dioxide 38 mEq/L (23-29); Chloride 89 mEq/L (98-107); Glucose 167 mg/dL (70-105); Osmolality,Calculated 284 (280-300); Potassium 3.5 mEq/L (3.5-5.1); Sodium 134 mEq/L (136-145); eGFR For African Americans > 60 (> 60); eGFR For Non-African Americans > 60 (> 60)
[2017-08-01] MEDS: *HR* Heparin 5,000 UNIT/ML VIAL SQ SCH ×2 (06:29→18:47)
--- NOTE | 2017-08-01 09:30 | Electrocardiograph Report ---
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
[2017-08-01] MEDS: *HR* OxyCODONE Immed Rel 15 MG TABLET PO PRN ×3 (09:35→20:50)
[2017-08-01] MEDS: Levofloxacin 750 MG/150 ML 750 MG/150 ML BAG IVPB SCH (09:36)
[2017-08-01] MEDS: Aspirin 325 MG TABLET PO SCH (09:40)
[2017-08-01] MEDS: BuPROPion SR (12 HR) 150 MG TABLET PO SCH (09:41)
[2017-08-01] MEDS: Sennosides 8.6 MG TABLET PO SCH ×2 (09:42→20:29)
[2017-08-01] MEDS: clonazePAM 1 MG TABLET PO SCH ×3 (09:42→20:29)
[2017-08-01] MEDS: Furosemide 40 MG TABLET PO SCH ×3 (09:43→18:46)
[2017-08-01] MEDS: Magnesium Oxide 400 MG TABLET PO SCH ×2 (09:43→20:27)
[2017-08-01] MEDS: Gabapentin 400 MG CAPSULE PO SCH ×3 (09:43→20:27)
[2017-08-01] MEDS: Fluticasone Propionate Nasal 50 MCG/SPRAY BOTTLE NS SCH (09:44)
--- NOTE | 2017-08-01 09:51 | Internal Med Progress Note ---
Date of Encounter: 08/01/17 Time of Encounter: 08:25 - Assessment and plan (1) Acute on chronic respiratory failure with hypoxia and hypercapnia Current Visit: No Status: Acute Assessment and plan: Secondary to COPD exacerbation and HCAP continue systemic steroids, bronchodilator support (decreased solumedrol to 60mg IV q12h) O2 supplementation Broad spectrum IV abx (Zosyn, Levaquin), will de-escalate as clinically improves /blood culture reports, discontinued Vancomycin f/u blood cultures (prelim report: No growth) respiratory viral panel negative bipap support as needed monitor O2 saturation, goal O2 sat: 88-92% will closely monitor respiratory status (2) COPD exacerbation Current Visit: No Status: Acute Assessment and plan: as listed above (3) HCAP (healthcare-associated pneumonia) Current Visit: Yes Status: Acute Assessment and plan: as listed above (4) Atrial fibrillation with RVR Current Visit: Yes Status: Resolved Assessment and plan: Resolved at this time continue home dose of Carvedilol cardiology on board and consultation appreciated History of Afib, not on AC due to fall risks 2D echo: LVEF 55-60%. Moderate pulmonary hypertension. No segmental dysfunction. Mild left ventricular diastolic dysfunction. No significant valvular dysfunction. (5) CAD (coronary artery disease) Current Visit: Yes Status: Chronic Assessment and plan: no signs of angina present at this time continue ASA, BB, Statin Qualifiers: Coronary Disease-Associated Artery/Lesion type: [place] artery [place] vs. transplanted heart: [place] heart Associated angina: without angina Qualified Code(s): I25.10 - Atherosclerotic heart disease of [place] coronary artery without angina pectoris (6) Chronic pain Current Visit: No Status: Chronic Assessment and plan: continue home pain meds Dilaudid 1mg IV q4h prn severe pain pt is noted to have high pain tolerance Qualifiers: Chronic pain type: other chronic pain Qualified Code(s): G89.29 - Other chronic pain (7) DVT prophylaxis Current Visit: Yes Status: Acute Assessment and plan: Heparin sQ (8) Fracture of hip, left, closed Current Visit: Yes Status: Acute Assessment and plan: continue pain control orthopedic evaluation evaluation appreciated POD #1: Open reduction internal fixation of left proximal femur fracture; Intramedullary nailing left femur fracture; Fluoroscopic guidance for IM nailing and ORIF left proximal femur fracture Date of surgery: 07/31/17 PT/OT evaluation requested Qualifiers: Encounter type: initial encounter Qualified Code(s): S72.002A - Fracture of unspecified part of neck of left femur, initial encounter for closed fracture (9) Sepsis Current Visit: No Status: Resolved Assessment and plan: secondary HCAP continue plan as listed above Qualifiers: Sepsis type: Pneumococcus Qualified Code(s): A40.3 - Sepsis due to Streptococcus pneumoniae - Subjective Interval history: Patient seen and examined at bedside. Saturating well on 4.5L NC POD #1: Open reduction internal fixation of left proximal femur fracture; Intramedullary nailing left femur fracture; Fluoroscopic guidance for IM nailing and ORIF left proximal femur fracture Tolerated the procedure well Currently reports of being in pain, pt has history of chronic pain and appears to have opioid dependence. As per [facility] records, pt gets Morphine q1-2h daily in addition to the oral pain medications. PT/OT evaluation requested. - Constitutional Vitals: Temp Pulse Resp BP Pulse Ox 98.9 F 74 18 127/58 96 08/01/17 06:58 08/01/17 06:58 08/01/17 06:58 08/01/17 06:58 08/01/17 06:58 General appearance: Present: A&O X 3, no acute distress, answers questions appropriately - Head Head exam: Present: atraumatic, normocephalic - Eye Eye exam: Present: conjuntiva pink, sclera anicteric - Respiratory Respiratory exam: Absent: respiratory distress (coarse breath sounds diffusely, equal air entry bilaterally ), wheezes - Cardiovascular Cardiovascular exam: Present: RRR, +S1, +S2. Absent: diastolic murmur, gallop, rubs, systolic murmur - GI/Abdominal GI/Abdominal exam: Present: normal bowel sounds, soft, no peritoneal signs. Absent: distended, tenderness - Extremities Exam Extremities exam: Present: warm, radial pulses palpable and symmetrical. Absent : calf tenderness - Neurological Exam Neurological exam: Present: alert, oriented X3 Internal Medicine: Result - Labs CBC & Chem 7: 08/01/17 05:34 08/01/17 05:34 Labs: Short CBC 08/01/17 Range/Units 05:34 WBC 8.7 (4.3-11.1) K/mcL Hgb 8.3 L (11.5-15.4) g/dL Hct 25.0 L (35.3-44.9) % Plt Count 183 (140-400) K/mcL Neutrophils # 7.4 (1.6-8.9) K/mcL BMP 08/01/17 05:34 Sodium 134 L Potassium 3.5 Chloride 89 L Carbon Dioxide 38 H BUN 20 Creatinine 0.81 Glucose 167 H Calcium 8.4 L - ABG Interpretation ABG results: PT/INR, D-dimer PT 13.1 Seconds (9.4-12.1) H 07/29/17 17:17 - Impressions Impressions Fluoroscopy 07/31/17 11:45 IMPRESSION: Intraprocedural fluoroscopic spot images as above. See separate procedure report for more information. D/ / Paulino Saeed MD / Paulino Saeed MD Interpreting Provider: Paulino Saeed MD Hip X-Ray 07/31/17 11:45 IMPRESSION: Intraprocedural fluoroscopic spot images as above. See separate procedure report for more information. D/ / Paulino Saeed MD / Paulino Saeed MD Interpreting Provider: Paulino Saeed MD - VTE Documentation of Mechanical Device: Venous foot pump, device Consult Discharge Plan - Plan Referrals: NONE,PCP [Primary Care Provider] -
--- NOTE | 2017-08-01 10:10 | Electrocardiograph Report ---
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
--- NOTE | 2017-08-01 10:16 | Electrocardiograph Report ---
[address] [place], [place] [address] Test Date: 2017-07-30 Pat Name: Coleen Najera Department: 111 Room: [facility] Gender: F Nut Packer: ANNIKA : 1945 Requested By: Carlton Simental Order Number: [id number] Reading MD: Gal Galloway MD Measurements Intervals [place] Rate: 67 P: 46 GA: 147 QRS: 23 QRSD: 91 T: 35 QT: 390 QTc: 406 Interpretive Statements SINUS RHYTHM LEFT ATRIAL ENLARGEMENT BASELINE ARTIFACT Electronically Signed On 08-01-2017 10:14:14 EST by Gal Galloway MD
--- NOTE | 2017-08-01 13:36 | Electrocardiograph Report ---
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
[2017-08-01] MEDS: Primidone 50 MG TABLET PO SCH (20:28)
[2017-08-01] MEDS: Melatonin 3 MG TABLET PO SCH (20:28)
--- NOTE | 2017-08-01 21:08 | Orthopedics Progress Note ---
Date of Encounter: 08/01/17 Time of Encounter: 21:05 Subjective Principal diagnosis: Subtrochanteric fracture left femur Interval history: 08/01/2017. Ration is postop day #1 from ORIF/IM nailing left subtrochanteric femur fracture. Patient is actually doing quite well. She is complaining of anticipated pain. She is on a very large dose chronically. Vital signs are stable. She is afebrile. Oxygen saturation's are above 90 with supplemental O2. Dressings are dry without drainage. There is some fullness in the thighs expected. Hemoglobin is 9.6. Platelets are normal. Impression: POD #1 IM nailing left subtrochanteric femur fracture Recommendation: We will continue with ambulation training, maintaining touchdown weightbearing status. Orthopedic status is stable at this time. Continue with PT and OT. director of home health services for discharge planning. Patient is requesting additional pain medications, patient is on a very large chronic pain medication schedule. We will defer additional pain management to internal medicine service. If patient is discharged soon, will need to continue with touchdown weightbearing only. No dressing changes are required, with intact occlusive dressing patient can shower though no bathing or soaking. Will need follow-up with me in about 2-3 weeks' time. Objective Vital signs: Vital Signs Temp Pulse Resp BP Pulse Ox 08/01/17 20:08 98.4 F 86 18 138/74 92 08/01/17 16:00 98.5 F 79 16 114/64 94 08/01/17 15:59 18 95 08/01/17 10:23 18 95 08/01/17 10:14 98.8 F 77 18 129/64 92 08/01/17 09:30 88 08/01/17 06:58 98.9 F 74 18 127/58 96 08/01/17 04:33 99.6 F 69 20 122/52 96 08/01/17 04:27 16 95 07/31/17 23:59 97.6 F 66 23 108/72 100 07/31/17 22:30 16 93 Intake and Output 08/01/17 08/01/17 08/01/17 07:59 15:59 23:59 Intake Total 200 / 200 1250 / 1250 Output Total 850 / 850 1325 / 1325 Balance -650 / -650 -75 / -75 Intake: IV Fluids 200 / 200 350 / 350 Levaquin Premix 750mg/150 mL 150 / 150 750 mg In 150 ml @ 100 mls/hr IVPB DAILY ANNIKA Rx#:[id number] Zosyn Premix 3.375 GM/200 ML 3. 200 / 200 200 / 200 375 gm In 200 ml @ 50 mls/hr IVPB Q8HR ANNIKA Rx#:[id number] Oral 900 / 900 Output: Catheter 850 / 850 1325 / 1325 Other: Meal Lunch Percent of Meal Consumed 60% Weight 79.9 kg Patient Weight 08/01/17 23:59 Weight 79.9 kg - Labs CBC & BMP: 08/01/17 05:34 08/01/17 05:34 Labs: Abnormal lab results RBC 2.43 M/mcL (3.82-4.97) L 08/01/17 05:34 Hgb 8.3 g/dL (11.5-15.4) L 08/01/17 05:34 Hct 25.0 % (35.3-44.9) L 08/01/17 05:34 MCV 102.9 fL (83.0-100.0) H 08/01/17 05:34 MCH 34.2 pg (28.0-33.3) H 08/01/17 05:34 Nucleated RBCs/100 WBC 0.2 /100 WBC (0) H 07/30/17 05:57 PT 13.1 Seconds (9.4-12.1) H 07/29/17 17:17 Sodium 134 mEq/L (136-145) L 08/01/17 05:34 Chloride 89 mEq/L (98-107) L 08/01/17 05:34 Carbon Dioxide 38 mEq/L (23-29) H 08/01/17 05:34 Glucose 167 mg/dL (70-105) H 08/01/17 05:34 POC Glucose 136 (58-89) H 07/29/17 20:29 Calcium 8.4 mg/dL (8.6-10.3) L 08/01/17 05:34 TSH 0.272 mcIU/mL (0.340-5.600) L 07/30/17 05:57 Total T3 0.70 ng/mL (0.87-1.78) L 07/30/17 05:57 Vancomycin Trough 22.3 mcg/mL (10-20) H* 07/31/17 08:43 - VTE Documentation of Mechanical Device: Venous foot pump, device Consult Discharge Plan - Plan Referrals: NONE,PCP [Primary Care Provider] -
[2017-08-02] MEDS: *HR* OxyCODONE Immed Rel 15 MG TABLET PO PRN (03:20)
[2017-08-02] MEDS: *HR* LORazepam 1 MG TABLET PO SCH ×5 (04:13→21:49)
[2017-08-02] MEDS: Ipratropium/Albuterol Neb 3 ML IH SCH ×4 (04:50→21:06)
[2017-08-02] MEDS: *HR* HYDROmorphone (PF) 1 MG/ML SYRINGE IVP PRN (05:04)
[2017-08-02] MEDS: *HR* Heparin 5,000 UNIT/ML VIAL SQ SCH ×2 (05:05→17:30)
[2017-08-02 06:34] LABS: Basophils % 0.4 %; Eosinophils % 0.5 %; Hematocrit 25.7 % (35.3-44.9); Hemoglobin 8.5 g/dL (11.5-15.4); Immature Granulocytes % 3.1 % (0-4); Lymphocytes # 1.8 K/mcL (0.6-4.6); Lymphocytes % 22.4 %; Mean Corpuscular HGB Conc 33.1 g/dL (31.6-35.5); Mean Corpuscular Hemoglobin 34.1 pg (28.0-33.3); Mean Corpuscular Volume 103.2 fL (83.0-100.0); Mean Platelet Volume 9.8 fL (9.4-12.4); Monocytes # 0.8 K/mcL (0.0-1.3); Monocytes % 10.3 %; Platelet Count 208 K/mcL (140-400); Red Blood Count 2.49 M/mcL (3.82-4.97); Red Cell Distribution Width 13.5 % (11.5-14.5); Segmented Neutrophils % 63.3 %
--- NOTE | 2017-08-02 07:46 | Internal Med Progress Note ---
Date of Encounter: 08/02/17 Time of Encounter: 07:43 - Assessment and plan (1) Chronic pain Current Visit: No Status: Chronic Assessment and plan: The patient's pain is not well controlled. She is on chronic pain meds at home/ halfway. She is on Roxicodone and morphine/Roxanol as well as a fentanyl patch. Oxycodone and the fentanyl patch has been restarted here. She is IV Dilaudid when necessary. Patient still not controlled. I will restart the patient morphine/Roxanol. We will see what her pain control is after the fentanyl patch. Narcan as ordered as needed Qualifiers: Chronic pain type: other chronic pain Qualified Code(s): G89.29 - Other chronic pain (2) Acute on chronic respiratory failure with hypoxia and hypercapnia Current Visit: No Status: Acute Assessment and plan: Secondary to COPD exacerbation and HCAP continue systemic steroids, bronchodilator support . Decrease Solu-Medrol to 40 mg every 12 today. Wean down oxygen as tolerated. She is on chronic 3.5 L continuous Levaquin Continue nebulizers (3) HCAP (healthcare-associated pneumonia) Current Visit: Yes Status: Acute Assessment and plan: as listed above (4) Atrial fibrillation with RVR Current Visit: Yes Status: Resolved Assessment and plan: Resolved at this time continue home dose of Carvedilol. Aspirin 325 mg daily cardiology on board and consultation appreciated History of Afib, not on AC due to fall risks 2D echo: LVEF 55-60%. Moderate pulmonary hypertension. No segmental dysfunction. Mild left ventricular diastolic dysfunction. No significant valvular dysfunction. (5) CAD (coronary artery disease) Current Visit: Yes Status: Chronic Assessment and plan: no signs of angina present at this time continue ASA, BB, Statin Qualifiers: Coronary Disease-Associated Artery/Lesion type: [place] artery [place] vs. transplanted heart: [place] heart Associated angina: without angina Qualified Code(s): I25.10 - Atherosclerotic heart disease of [place] coronary artery without angina pectoris (6) DVT prophylaxis Current Visit: Yes Status: Acute Assessment and plan: Heparin sQ - Subjective Interval history: Patient was seen and examined. She is status post left proximal femur ORIF with intramedullary nailing of the left femur. She is on chronic oxygen and uses about 3-1/2 L continuously. She is on about 5 currently. She has been afebrile. Pain control has been significant issue. She is narcotic dependent and has dealt with chronic pain and follows with a pain specialist from what I understand. Her pain is not controlled. - Constitutional Vitals: Temp Pulse Resp BP Pulse Ox 98.4 F 78 18 133/76 92 08/02/17 06:52 08/02/17 06:52 08/02/17 06:52 08/02/17 06:52 08/02/17 06:52 General appearance: Present: A&O X 3, no acute distress, answers questions appropriately Exam: GEN: NAD CVS: RRR. S1, S2, No m/r/g RESP: Diminished with coarse breath sounds at the bases ABD: Soft, NT, ND, +BS EXT: No edema. 2+ DP, No rashes NEURO: Nonfocal Internal Medicine: Result - Labs CBC & Chem 7: 08/02/17 06:03 08/01/17 05:34 Labs: Short CBC 08/02/17 Range/Units 06:03 WBC 7.8 (4.3-11.1) K/mcL Hgb 8.5 L (11.5-15.4) g/dL Hct 25.7 L (35.3-44.9) % Plt Count 208 (140-400) K/mcL Neutrophils # 5.0 (1.6-8.9) K/mcL - ABG Interpretation ABG results: PT/INR, D-dimer PT 13.1 Seconds (9.4-12.1) H 07/29/17 17:17 - VTE Documentation of Mechanical Device: Venous foot pump, device Consult Discharge Plan - Plan Referrals: NONE,PCP [Primary Care Provider] -
[2017-08-02] MEDS: Piperacillin/Tazobactam 3.375 GM/200 ML BAG IVPB SCH ×2 (08:00→16:14)
[2017-08-02] MEDS: Sennosides 8.6 MG TABLET PO SCH ×2 (08:02→21:49)
[2017-08-02] MEDS: BuPROPion SR (12 HR) 150 MG TABLET PO SCH (08:02)
[2017-08-02] MEDS: Gabapentin 400 MG CAPSULE PO SCH ×3 (08:02→21:48)
[2017-08-02] MEDS: Furosemide 40 MG TABLET PO SCH ×3 (08:02→16:14)
[2017-08-02] MEDS: clonazePAM 1 MG TABLET PO SCH ×3 (08:03→21:49)
[2017-08-02] MEDS: Magnesium Oxide 400 MG TABLET PO SCH ×2 (08:04→21:50)
[2017-08-02] MEDS: Aspirin 325 MG TABLET PO SCH (08:04)
[2017-08-02] MEDS: Levofloxacin 750 MG/150 ML 750 MG/150 ML BAG IVPB SCH (08:05)
[2017-08-02] MEDS: Fluticasone Propionate Nasal 50 MCG/SPRAY BOTTLE NS SCH (08:05)
[2017-08-02] MEDS: methylPREDNISolone 125 MG/2 ML VIAL IVP SCH ×2 (08:33→21:51)
[2017-08-02] MEDS ORDERED: *HR* FentaNYL PATCH 100 MCG PATCH TD SCH (09:00)
[2017-08-02 09:18] LABS: BUN/Creatinine Ratio 31 (6-26); Blood Urea Nitrogen 26 mg/dL (8-23); Calcium 8.4 mg/dL (8.6-10.3); Carbon Dioxide 34 mEq/L (23-29); Chloride 93 mEq/L (98-107); Glucose 125 mg/dL (70-105); Magnesium 1.9 mg/dL (1.6-2.6); Osmolality,Calculated 286 (280-300); Potassium 3.6 mEq/L (3.5-5.1); Sodium 135 mEq/L (136-145); eGFR For African Americans > 60 (> 60); eGFR For Non-African Americans > 60 (> 60)
[2017-08-02] MEDS: *HR* Morphine Immed Rel 30 MG TABLET PO SCH ×8 (09:35→23:09)
--- NOTE | 2017-08-02 19:32 | Orthopedics Progress Note ---
Date of Encounter: 08/02/17 Time of Encounter: 19:30 Subjective Principal diagnosis: Subtrochanteric fracture left femur Interval history: 08/01/2017. Patient is postop day #1 from ORIF/IM nailing left subtrochanteric femur fracture. Patient is actually doing quite well. She is complaining of anticipated pain. She is on a very large dose chronically. Vital signs are stable. She is afebrile. Oxygen saturation's are above 90 with supplemental O2. Dressings are dry without drainage. There is some fullness in the thighs expected. Hemoglobin is 9.6. Platelets are normal. Impression: POD #1 IM nailing left subtrochanteric femur fracture Recommendation: We will continue with ambulation training, maintaining touchdown weightbearing status. Orthopedic status is stable at this time. Continue with PT and OT. account services analyst for discharge planning. Patient is requesting additional pain medications, patient is on a very large chronic pain medication schedule. We will defer additional pain management to internal medicine service. If patient is discharged soon, will need to continue with touchdown weightbearing only. No dressing changes are required, with intact occlusive dressing patient can shower though no bathing or soaking. Will need follow-up with me in about 2-3 weeks' time. 08/02/2017. Patient is POD #2 from ORIF and IM nailing of a left subtrochanteric femur fracture. She looks much better today. Pain appears to be better controlled. She is in good spirits. Vital signs are stable. Patient is afebrile. Dressings show minimal spotting on the superior aspect of the hip area dressing. Hemoglobin is stable. Platelet count is normal. Impression: POD #2 IM nailing left subtrochanteric femur fracture, orthopedic status stable. Recommendation: Continue with care as previously outlined. Patient's orthopedic status is stable for discharge. Only limitation would be maintaining touchdown weightbearing. As noted she can shower with an intact dressing though she cannot bathe or soak. She will need to see me back in follow-up in about 2-3 weeks' time. Will need VTE prophylaxis. Objective Vital signs: Vital Signs Temp Pulse Resp BP Pulse Ox 08/02/17 18:57 98.0 F 82 18 106/62 90 08/02/17 16:48 18 93 08/02/17 15:08 98.1 F 82 18 126/74 92 08/02/17 11:01 98.8 F 93 20 118/77 64 08/02/17 10:23 16 86 08/02/17 08:44 93 08/02/17 06:52 98.4 F 78 18 133/76 92 08/02/17 04:50 16 91 08/02/17 03:26 98.1 F 71 14 113/72 86 08/02/17 00:43 98.6 F 88 17 112/70 90 08/01/17 21:22 20 99 08/01/17 20:08 98.4 F 86 18 138/74 92 Intake and Output 08/02/17 08/02/17 08/02/17 07:59 15:59 23:59 Intake Total 200 / 200 400 / 400 0 / 0 Output Total 400 / 400 0 / 0 Balance -200 / -200 400 / 400 0 / 0 Intake: IV Fluids 200 / 200 200 / 200 Zosyn Premix 3.375 GM/200 ML 3. 200 / 200 200 / 200 375 gm In 200 ml @ 50 mls/hr IVPB Q8HR ANNIKA Rx#:[id number] Oral 200 / 200 0 / 0 Output: Urine 400 / 400 0 / 0 Other: Meal Lunch Percent of Meal Consumed 50% # Voids 1 1 # Bowel Movements 1 Weight 72 kg Patient Weight 08/02/17 23:59 Weight 72 kg - Labs CBC & BMP: 08/02/17 06:03 08/02/17 06:03 Labs: Abnormal lab results RBC 2.49 M/mcL (3.82-4.97) L 08/02/17 06:03 Hgb 8.5 g/dL (11.5-15.4) L 08/02/17 06:03 Hct 25.7 % (35.3-44.9) L 08/02/17 06:03 MCV 103.2 fL (83.0-100.0) H 08/02/17 06:03 MCH 34.1 pg (28.0-33.3) H 08/02/17 06:03 Nucleated RBCs/100 WBC 0.2 /100 WBC (0) H 07/30/17 05:57 PT 13.1 Seconds (9.4-12.1) H 07/29/17 17:17 Sodium 135 mEq/L (136-145) L 08/02/17 06:03 Chloride 93 mEq/L (98-107) L 08/02/17 06:03 Carbon Dioxide 34 mEq/L (23-29) H 08/02/17 06:03 BUN 26 mg/dL (8-23) H 08/02/17 06:03 BUN/Creatinine Ratio 31 (6-26) H 08/02/17 06:03 Glucose 125 mg/dL (70-105) H 08/02/17 06:03 POC Glucose 136 (58-89) H 07/29/17 20:29 Calcium 8.4 mg/dL (8.6-10.3) L 08/02/17 06:03 TSH 0.272 mcIU/mL (0.340-5.600) L 07/30/17 05:57 Total T3 0.70 ng/mL (0.87-1.78) L 07/30/17 05:57 Vancomycin Trough 22.3 mcg/mL (10-20) H* 07/31/17 08:43 - VTE Documentation of Mechanical Device: Venous foot pump, device Consult Discharge Plan - Plan Referrals: NONE,PCP [Primary Care Provider] -
[2017-08-02] MEDS: Primidone 50 MG TABLET PO SCH (21:49)
[2017-08-02] MEDS: metOLazone 2.5 MG TABLET PO SCH (21:49)
[2017-08-02] MEDS: Melatonin 3 MG TABLET PO SCH (21:51)
[2017-08-03] MEDS: *HR* Morphine Immed Rel 30 MG TABLET PO SCH ×12 (01:13→22:54)
[2017-08-03] MEDS: *HR* LORazepam 1 MG TABLET PO SCH ×6 (01:17→21:28)
[2017-08-03] MEDS: Piperacillin/Tazobactam 3.375 GM/200 ML BAG IVPB SCH ×3 (01:20→16:54)
[2017-08-03] MEDS: Ipratropium/Albuterol Neb 3 ML IH SCH ×4 (04:09→22:22)
[2017-08-03] MEDS: *HR* Heparin 5,000 UNIT/ML VIAL SQ SCH ×2 (05:10→17:35)
[2017-08-03 07:10] LABS: BUN/Creatinine Ratio 34 (6-26); Blood Urea Nitrogen 31 mg/dL (8-23); Calcium 8.7 mg/dL (8.6-10.3); Carbon Dioxide 30 mEq/L (23-29); Chloride 95 mEq/L (98-107); Glucose 141 mg/dL (70-105); Osmolality,Calculated 287 (280-300); Potassium 4.1 mEq/L (3.5-5.1); Sodium 134 mEq/L (136-145); eGFR For African Americans > 60 (> 60); eGFR For Non-African Americans > 60 (> 60)
[2017-08-03 07:17] LABS: Hematocrit 25.5 % (35.3-44.9); Hemoglobin 8.5 g/dL (11.5-15.4); Mean Corpuscular HGB Conc 33.3 g/dL (31.6-35.5); Mean Corpuscular Hemoglobin 34.7 pg (28.0-33.3); Mean Corpuscular Volume 104.1 fL (83.0-100.0); Mean Platelet Volume 9.9 fL (9.4-12.4); Platelet Count 208 K/mcL (140-400); Red Blood Count 2.45 M/mcL (3.82-4.97); Red Cell Distribution Width 13.5 % (11.5-14.5)
[2017-08-03] MEDS: Levofloxacin 750 MG/150 ML 750 MG/150 ML BAG IVPB SCH (08:43)
[2017-08-03] MEDS: Magnesium Oxide 400 MG TABLET PO SCH ×2 (08:44→21:28)
[2017-08-03] MEDS: methylPREDNISolone 125 MG/2 ML VIAL IVP SCH (08:44)
[2017-08-03] MEDS: Gabapentin 400 MG CAPSULE PO SCH ×3 (08:44→21:26)
[2017-08-03 08:45] LABS: Monocytes # 1.2 K/mcL (0.0-1.3); Neutrophils # 6.4 K/mcL (1.6-8.9)
[2017-08-03] MEDS: Aspirin 325 MG TABLET PO SCH (08:45)
[2017-08-03] MEDS: BuPROPion SR (12 HR) 150 MG TABLET PO SCH (08:45)
[2017-08-03] MEDS: clonazePAM 1 MG TABLET PO SCH ×3 (08:45→21:28)
[2017-08-03 08:46] LABS: Anisocytosis 1+ (Not Present); Platelet Estimate Normal (Normal)
[2017-08-03] MEDS: Furosemide 40 MG TABLET PO SCH ×3 (08:46→15:25)
[2017-08-03 08:47] LABS: Microcytosis Present (Not Present)
[2017-08-03] MEDS: Fluticasone Propionate Nasal 50 MCG/SPRAY BOTTLE NS SCH (08:48)
[2017-08-03] MEDS: Sennosides 8.6 MG TABLET PO SCH ×2 (08:48→21:28)
--- NOTE | 2017-08-03 20:09 | Internal Med Progress Note ---
Date of Encounter: 08/03/17 Time of Encounter: 20:06 - Assessment and plan (1) Acute on chronic respiratory failure with hypoxia and hypercapnia Current Visit: No Status: Acute Assessment and plan: Acute on chronic hypoxic hypercapnic respiratory failure secondary to acute COPD exacerbation from sepsis due to healthcare associated pneumonia present upon admission Stop Solu-Medrol as the patient takes Decadron 4 mg daily She is on chronic 3.5 L continue Levaquin day 6, Zosyn day 5, vancomycin was given for 2 days and was discontinued Chest x-ray showed left upper lobe pneumonia Continue nebulizers Very congested, echocardiac exam showed an ejection fraction of 55-60%. 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 (4) Fracture of hip, left, closed Current Visit: Yes Status: Acute Assessment and plan: continue pain control orthopedic evaluation evaluation appreciated POD #3: Open reduction internal fixation of left proximal femur fracture; Intramedullary nailing left femur fracture; Fluoroscopic guidance for IM nailing and ORIF left proximal femur fracture Date of surgery: 07/31/17 PT/OT evaluation requested Qualifiers: Encounter type: initial encounter Qualified Code(s): S72.002A - Fracture of unspecified part of neck of left femur, initial encounter for closed fracture (5) Atrial fibrillation with RVR Current Visit: Yes Status: Resolved Assessment and plan: Resolved at this time continue home dose of Carvedilol. Aspirin 325 mg daily cardiology on board History of Afib, not on AC due to fall risks 2D echo: LVEF 55-60%. Moderate pulmonary hypertension. No segmental dysfunction. Mild left ventricular diastolic dysfunction. No significant valvular dysfunction. (6) CAD (coronary artery disease) Current Visit: Yes Status: Chronic Assessment and plan: no signs of angina present at this time continue ASA, BB, Statin Qualifiers: Coronary Disease-Associated Artery/Lesion type: [place] artery [place] vs. transplanted heart: [place] heart Associated angina: without angina Qualified Code(s): I25.10 - Atherosclerotic heart disease of [place] coronary artery without angina pectoris (7) Chronic pain Current Visit: No Status: Chronic Assessment and plan: The patient's pain better controlled. She is on chronic pain meds at home/ custodial. She is on Roxicodone and morphine/Roxanol as well as a fentanyl patch. Oxycodone and the fentanyl patch has been restarted here. She uses IV Dilaudid when necessary. Qualifiers: Chronic pain type: other chronic pain Qualified Code(s): G89.29 - Other chronic pain - Subjective Interval history: Very congested, complains of less left hip pain, no chest pain, no fevers, mentions that she does not choke when she drinks or eats, no abdominal pain or dysuria - Constitutional Vitals: Temp Pulse Resp BP Pulse Ox 97.7 F 79 18 105/56 94 08/03/17 19:06 08/03/17 19:06 08/03/17 19:06 08/03/17 19:06 08/03/17 19:06 General appearance: Present: A&O X 3, no acute distress, answers questions appropriately - Head Head exam: Present: atraumatic, normocephalic - Eye Eye exam: Present: PERRL, conjuntiva pink, sclera anicteric Pupils: Present: PERRL - Neck Neck exam general surgery: Present: supple, trachea midline. Absent: lymphadenopathy - Respiratory Respiratory exam: Present: CTAB, rales (Bibasilar crackles, upper airway congestion). Absent: accessory muscle use, rhonchi, wheezes - Cardiovascular Cardiovascular exam: Present: RRR, +S1, +S2. Absent: diastolic murmur, gallop, rubs, systolic murmur - GI/Abdominal GI/Abdominal exam: Present: normal bowel sounds, soft, no peritoneal signs. Absent: distended, tenderness - Extremities Exam Extremities exam: Present: warm, radial pulses palpable and symmetrical. Absent : calf tenderness, cyanotic, pedal edema Additional comments: Left hip surgical wound without signs of hematoma or infection - Neurological Exam Neurological exam: Present: CN II-XII intact, oriented X3, no focal deficits. Absent: pronater drift, facial droop, speech deficit - Skin Skin exam: Present: dry, intact Internal Medicine: Result - Labs CBC & Chem 7: 08/03/17 05:27 08/03/17 05:27 Labs: Short CBC 08/03/17 Range/Units 05:27 WBC 8.7 (4.3-11.1) K/mcL Hgb 8.5 L (11.5-15.4) g/dL Hct 25.5 L (35.3-44.9) % Plt Count 208 (140-400) K/mcL Neutrophils # 6.4 (1.6-8.9) K/mcL BMP 08/03/17 05:27 Sodium 134 L Potassium 4.1 Chloride 95 L Carbon Dioxide 30 H BUN 31 H Creatinine 0.90 Glucose 141 H Calcium 8.7 - ABG Interpretation ABG results: PT/INR, D-dimer PT 13.1 Seconds (9.4-12.1) H 07/29/17 17:17 - VTE Documentation of Mechanical Device: Venous foot pump, device Consult Discharge Plan - Plan Referrals: NONE,PCP [Primary Care Provider] -
[2017-08-03] MEDS: Melatonin 3 MG TABLET PO SCH (21:27)
[2017-08-03] MEDS: Primidone 50 MG TABLET PO SCH (21:27)
[2017-08-04] MEDS: *HR* LORazepam 1 MG TABLET PO SCH ×5 (00:11→17:16)
[2017-08-04] MEDS: *HR* Morphine Immed Rel 30 MG TABLET PO SCH ×9 (00:11→17:16)
[2017-08-04] MEDS: Piperacillin/Tazobactam 3.375 GM/200 ML BAG IVPB SCH ×2 (00:20→11:54)
[2017-08-04] MEDS: Ipratropium/Albuterol Neb 3 ML IH SCH ×3 (04:03→16:55)
[2017-08-04] MEDS: *HR* Heparin 5,000 UNIT/ML VIAL SQ SCH ×2 (06:44→17:17)
--- NOTE | 2017-08-04 07:40 | Discharge Summary ---
Date of Encounter: 08/04/17 Time of Encounter: 07:38 - Discharge Diagnosis (1) Acute on chronic respiratory failure with hypoxia and hypercapnia Priority: Primary Status: Acute Comments: Acute on chronic hypoxic hypercapnic respiratory failure secondary to acute COPD exacerbation from sepsis due to healthcare associated pneumonia present upon admission (2) HCAP (healthcare-associated pneumonia) Priority: Primary Status: Acute (3) Fracture of hip, left, closed Priority: Primary Status: Acute Qualifiers: Encounter type: initial encounter Qualified Code(s): S72.002A - Fracture of unspecified part of neck of left femur, initial encounter for closed fracture (4) Atrial fibrillation with RVR Priority: Secondary Status: Resolved (5) CAD (coronary artery disease) Priority: Secondary Status: Chronic Qualifiers: Coronary Disease-Associated Artery/Lesion type: [place] artery [place] vs. transplanted heart: [place] heart Associated angina: without angina Qualified Code(s): I25.10 - Atherosclerotic heart disease of [place] coronary artery without angina pectoris (6) Chronic pain Priority: Secondary Status: Chronic Qualifiers: Chronic pain type: other chronic pain Qualified Code(s): G89.29 - Other chronic pain (7) VRE (vancomycin-resistant Enterococci) Priority: Secondary Status: Acute - Discharge Medications Prescriptions: clonazePAM [Klonopin] 1 mg PO TID #20 tablet FentaNYL PATCH [Duragesic] 200 mcg TD Q72H #10 patch.td72 Gabapentin [Neurontin] 800 mg PO TID #90 capsule LORazepam [Ativan] 1 mg PO Q4H #25 tablet Morphine Immed Rel [Morphine Sulfate] 30 mg PO Q2H #25 tablet Oxycodone HCl [Roxicodone 30 MG Immed Release] 30 mg PO Q4H PRN #20 tablet PRN Reason: Pain Phenytoin ER [Dilantin ER] 100 mg PO TID #90 capsule Primidone [Mysoline] 50 mg PO HS #30 tablet Home Medications: Docusate [Colace] 100 mg PO BID 06/17/15 [History] Fluticasone Propionate Nasal [Flonase] 100 mcg NS DAILY 06/17/15 [History] Furosemide [Lasix] 80 mg PO TID 06/17/15 [History] Omeprazole [PriLOSEC] 20 mg PO BIDAC 06/17/15 [History] Polyethylene Glycol 3350 [MiraLAX] 17 gm PO DAILY 06/17/15 [History] Potassium Chloride [Klor-Con Sprinkle] 60 meq PO TID 06/17/15 [History] Promethazine [Phenergan] 12.5 mg PO Q4H 06/17/15 [History] Sennosides [Senna] 8.6 mg PO BID 06/17/15 [History] Sertraline [Zoloft] 200 mg PO DAILY 06/17/15 [History] Ipratropium/Albuterol Neb [Duoneb] 3 ml IH Q6H #0 12/16/15 [Rx] Albuterol Neb [Proventil Neb] 2.5 mg IH TID 07/06/16 [History] Aspirin 325 mg PO DAILY 07/06/16 [History] BuPROPion SR (12 HR) [Wellbutrin SR] 300 mg PO DAILY 07/06/16 [History] GuaiFENesin ER [Mucinex] 600 mg PO BID 07/06/16 [History] Ipratropium/Albuterol Neb [Duoneb] 3 ml IH Q4H PRN 07/06/16 [History] Nitroglycerin [Nitrostat] 0.4 mg SL Q5M PRN 07/06/16 [History] metOLazone [Zaroxolyn] 2.5 mg PO Q48H 07/06/16 [History] Acetaminophen [Tylenol 650mg SUPP] 650 mg RC Q6H PRN 07/29/17 [History] Amino Acids/Protein Hydrolys [Pro-Stat Awc Liquid Packet] 30 ml PO DAILY [History] Atropine Sulfate in 0.9% NaCl [Atropine 0.01%-Ns Eye Drops] 2 drop SL Q2H PRN [History] Bisacodyl [Dulcolax] 10 mg RC DAILY PRN 07/29/17 [History] Buspirone HCl [Buspar] 20 mg PO BID 07/29/17 [History] Calcium Polycarbophil [Fibercon] 1,250 mg PO BID 07/29/17 [History] Carvedilol 12.5 mg PO BID 07/29/17 [History] Dexamethasone [Decadron] 4 mg PO DAILY 07/29/17 [History] Hyoscyamine SL [Levsin Sl] 0.125 - 0.25 mg SL Q2H PRN 07/29/17 [History] Magnesium Oxide [Mag-Ox] 400 mg PO BID 07/29/17 [History] Melatonin 10 mg PO HS 07/29/17 [History] FentaNYL PATCH [Duragesic] 200 mcg TD Q72H #10 patch.td72 08/04/17 [Rx] Gabapentin [Neurontin] 800 mg PO TID #90 capsule 08/04/17 [Rx] LORazepam [Ativan] 1 mg PO Q4H #25 tablet 08/04/17 [Rx] Morphine Immed Rel [Morphine Sulfate] 30 mg PO Q2H #25 tablet 08/04/17 [Rx] Oxycodone HCl [Roxicodone 30 MG Immed Release] 30 mg PO Q4H PRN #20 tablet 08/04 [Rx] Phenytoin ER [Dilantin ER] 100 mg PO TID #90 capsule 08/04/17 [Rx] Primidone [Mysoline] 50 mg PO HS #30 tablet 08/04/17 [Rx] clonazePAM [Klonopin] 1 mg PO TID #20 tablet 08/04/17 [Rx] Allergies/Adverse Reactions: 3 Allergy/AdvReac Type Severity Reaction Status Date / Time tetanus toxoid, adsorbed Allergy Rash Verified 06/17/15 16:10 baclofen AdvReac Confusion Verified 07/20/16 09:49 butorphanol AdvReac Confusion Verified 07/20/16 09:49 Date of admission: 07/29/17 19:52 Primary care physician: PCP NONE Consults: 07/29/17 19:58 Consult to Pulmonology [CONS] Routine Consulting Provider: [facility] [place] Reason for Consult: Pneumonia, COPD exacerbation, Fx may need sx, may need ICU stay after sx Call Completed: No 07/29/17 20:49 Consult to Orthopedic Surgery [CONS] Routine Consulting Provider: Orthopedic and Sports Medicine Reason for Consult: Femoral fracture Call Completed: Yes 07/31/17 15:44 Consult to Occupational Therapy [CONS] Routine Comment: Evaluate, develop and implement POC Reason for Consult: ADLs Consult to Physical Therapy [CONS] Routine Comment: Evaluate, develop and implement POC Reason for Consult: TDWB LLE - Patient Status Disposition: Transfer SNF Condition: Fair Overall status at discharge: patient is progressing back to baseline - Discharge Instructions Follow Up With: NONE,PCP [Primary Care Provider] - Additional Instructions: Resume hospice services once arriving today nursing facility. Continue Lasix, Decadron, benzodiazepines and Opioid medications to control pain. - Diet and Activity Activity: wear oxygen at all times Diet: regular diet Hospital course: Ms. Najera is a 72 year old female with Hx of COPD oxygen dependent, HTN, CAD s /p stent, diastolic CHF, A Fib? sent to ER from [place] for fall and left hip pain. Pt said she trapped and fell. Denies loss of consciousness. Pt denies head injury. Pt c/o pain of left shoulder, low back and left hip. Pt also c/o cough with yellowish sputum for 5 days, subjective fever, runny nose. Pt denies sore throat or SOB. Pt was found low saturation to 80s. She c/o chest pain but seems it is due to fall. In ER, pt was found left intratrochanteric fracture. She was also found left side pneumonia. Pt was admitted for further management. Pt developed A Fib RVR in ER,change to sinus before the cardizem drip started. Pt said she has Hx of A Fib but not on anticoagulation except ASA. Chest x-ray showed left upper lobe pneumonia. Was given Solu-Medrol IV, patient takes Decadron 4 mg daily which was resumed. She is on chronic 3.5 L nasal cannula. Completed 7 days of Levaquin, 6 days of Zosyn and had 2 days of IV vancomycin. POD #4: Open reduction internal fixation of left proximal femur fracture; Intramedullary nailing left femur fracture; Fluoroscopic guidance for IM nailing and ORIF left proximal femur fracture. Surgical procedure was performed by Dr. Dial. Date of surgery: 07/31/17 2D echo: LVEF 55-60%. Moderate pulmonary hypertension. No segmental dysfunction. Mild left ventricular diastolic dysfunction. No significant valvular dysfunction. The patient's pain better controlled. She is on chronic pain meds at home/ alf. She is on Roxicodone and morphine/Roxanol as well as a fentanyl patch. Oxycodone and the fentanyl patch has been restarted here Stable to be discharged on hospice. - Time Spent with Patient Total time spent providing and/or coordinating discharge services: Greater than 30 minutes (40 min) - Constitutional Vitals: Temp Pulse Resp BP Pulse Ox 97.8 F 68 15 106/69 92 08/04/17 07:13 08/04/17 07:13 08/04/17 07:13 08/04/17 07:13 08/04/17 07:13 General appearance: Present: A&O X 3, no acute distress, answers questions appropriately Exam: - Head Head exam: Present: atraumatic, normocephalic - Eye Eye exam: Present: PERRL, conjuntiva pink, sclera anicteric Pupils: Present: PERRL - Neck Neck exam general surgery: Present: supple, trachea midline. Absent: lymphadenopathy - Respiratory Respiratory exam: Present: CTAB, rales (Bibasilar crackles, upper airway congestion). Absent: accessory muscle use, rhonchi, wheezes - Cardiovascular Cardiovascular exam: Present: RRR, +S1, +S2. Absent: diastolic murmur, gallop, rubs, systolic murmur - GI/Abdominal GI/Abdominal exam: Present: normal bowel sounds, soft, no peritoneal signs. Absent: distended, tenderness - Extremities Exam Extremities exam: Present: warm, radial pulses palpable and symmetrical. Absent : calf tenderness, cyanotic, pedal edema Additional comments: Left hip surgical wound without signs of hematoma or infection - Neurological Exam Neurological exam: Present: CN II-XII intact, oriented X3, no focal deficits. Absent: pronater drift, facial droop, speech deficit - Skin Skin exam: Present: dry, intact - VTE Documentation of Mechanical Device: Venous foot pump, device
--- NOTE | 2017-08-04 07:52 | Physician Discharge Referral ---
ExtendedCare Referral Info Provider in Charge after Transfer: [employer] Institutional Level of Care: Skilled - Diagnosis (1) Acute on chronic respiratory failure with hypoxia and hypercapnia Status: Acute (2) HCAP (healthcare-associated pneumonia) Status: Acute (3) Fracture of hip, left, closed Status: Acute (4) Atrial fibrillation with RVR Status: Resolved (5) CAD (coronary artery disease) Status: Chronic (6) Chronic pain Status: Chronic (7) VRE (vancomycin-resistant Enterococci) Status: Acute - Transfer Medications Prescriptions: clonazePAM [Klonopin] 1 mg PO TID #20 tablet FentaNYL PATCH [Duragesic] 200 mcg TD Q72H #10 patch.td72 Gabapentin [Neurontin] 800 mg PO TID #90 capsule LORazepam [Ativan] 1 mg PO Q4H #25 tablet Morphine Immed Rel [Morphine Sulfate] 30 mg PO Q2H #25 tablet Oxycodone HCl [Roxicodone 30 MG Immed Release] 30 mg PO Q4H PRN #20 tablet PRN Reason: Pain Phenytoin ER [Dilantin ER] 100 mg PO TID #90 capsule Primidone [Mysoline] 50 mg PO HS #30 tablet Home Medications: Docusate [Colace] 100 mg PO BID 06/17/15 [History] Fluticasone Propionate Nasal [Flonase] 100 mcg NS DAILY 06/17/15 [History] Furosemide [Lasix] 80 mg PO TID 06/17/15 [History] Omeprazole [PriLOSEC] 20 mg PO BIDAC 06/17/15 [History] Polyethylene Glycol 3350 [MiraLAX] 17 gm PO DAILY 06/17/15 [History] Potassium Chloride [Klor-Con Sprinkle] 60 meq PO TID 06/17/15 [History] Promethazine [Phenergan] 12.5 mg PO Q4H 06/17/15 [History] Sennosides [Senna] 8.6 mg PO BID 06/17/15 [History] Sertraline [Zoloft] 200 mg PO DAILY 06/17/15 [History] Ipratropium/Albuterol Neb [Duoneb] 3 ml IH Q6H #0 12/16/15 [Rx] Albuterol Neb [Proventil Neb] 2.5 mg IH TID 07/06/16 [History] Aspirin 325 mg PO DAILY 07/06/16 [History] BuPROPion SR (12 HR) [Wellbutrin SR] 300 mg PO DAILY 07/06/16 [History] GuaiFENesin ER [Mucinex] 600 mg PO BID 07/06/16 [History] Ipratropium/Albuterol Neb [Duoneb] 3 ml IH Q4H PRN 07/06/16 [History] Nitroglycerin [Nitrostat] 0.4 mg SL Q5M PRN 07/06/16 [History] metOLazone [Zaroxolyn] 2.5 mg PO Q48H 07/06/16 [History] Acetaminophen [Tylenol 650mg SUPP] 650 mg RC Q6H PRN 07/29/17 [History] Amino Acids/Protein Hydrolys [Pro-Stat Awc Liquid Packet] 30 ml PO DAILY [History] Atropine Sulfate in 0.9% NaCl [Atropine 0.01%-Ns Eye Drops] 2 drop SL Q2H PRN [History] Bisacodyl [Dulcolax] 10 mg RC DAILY PRN 07/29/17 [History] Buspirone HCl [Buspar] 20 mg PO BID 07/29/17 [History] Calcium Polycarbophil [Fibercon] 1,250 mg PO BID 07/29/17 [History] Carvedilol 12.5 mg PO BID 07/29/17 [History] Dexamethasone [Decadron] 4 mg PO DAILY 07/29/17 [History] Hyoscyamine SL [Levsin Sl] 0.125 - 0.25 mg SL Q2H PRN 07/29/17 [History] Magnesium Oxide [Mag-Ox] 400 mg PO BID 07/29/17 [History] Melatonin 10 mg PO HS 07/29/17 [History] FentaNYL PATCH [Duragesic] 200 mcg TD Q72H #10 patch.td72 08/04/17 [Rx] Gabapentin [Neurontin] 800 mg PO TID #90 capsule 08/04/17 [Rx] LORazepam [Ativan] 1 mg PO Q4H #25 tablet 08/04/17 [Rx] Morphine Immed Rel [Morphine Sulfate] 30 mg PO Q2H #25 tablet 08/04/17 [Rx] Oxycodone HCl [Roxicodone 30 MG Immed Release] 30 mg PO Q4H PRN #20 tablet 08/04 [Rx] Phenytoin ER [Dilantin ER] 100 mg PO TID #90 capsule 08/04/17 [Rx] Primidone [Mysoline] 50 mg PO HS #30 tablet 08/04/17 [Rx] clonazePAM [Klonopin] 1 mg PO TID #20 tablet 08/04/17 [Rx] Allergies/Adverse Reactions: 3 Allergy/AdvReac Type Severity Reaction Status Date / Time tetanus toxoid, adsorbed Allergy Rash Verified 06/17/15 16:10 baclofen AdvReac Confusion Verified 07/20/16 09:49 butorphanol AdvReac Confusion Verified 07/20/16 09:49 - Respiratory Orders Smoking Cessation: Smoking cessation has been advised. For more information, call the [place] Tobacco Quit Line at 0-038-BRLS-NOW. - Advance Directives Code Status: DNR-Arrest - Treatments List/Other: Resume hospice services once arriving to nursing facility. Continue Lasix, Decadron, benzodiazepines and Opioid medications to control pain. CERTIFICATION: I certify that the transfer of the above named patient to an Extended Care Facility is necessary for the continuing treatment of the diagnosis listed. The above information is true and accurate reflection of patient's current condition. Confidential - Redisclosure prohibited without a patient's written consent.
[2017-08-04] MEDS: BuPROPion SR (12 HR) 150 MG TABLET PO SCH (10:04)
[2017-08-04] MEDS: Aspirin 325 MG TABLET PO SCH (10:05)
[2017-08-04] MEDS: Furosemide 40 MG TABLET PO SCH ×3 (10:06→17:16)
[2017-08-04] MEDS: Sennosides 8.6 MG TABLET PO SCH (10:06)
[2017-08-04] MEDS: clonazePAM 1 MG TABLET PO SCH ×2 (10:06→15:06)
[2017-08-04] MEDS: Gabapentin 400 MG CAPSULE PO SCH ×2 (10:06→15:06)
[2017-08-04] MEDS: Magnesium Oxide 400 MG TABLET PO SCH (10:06)
[2017-08-04] MEDS: Levofloxacin 750 MG/150 ML 750 MG/150 ML BAG IVPB SCH (10:07)
[2017-08-04] MEDS: Fluticasone Propionate Nasal 50 MCG/SPRAY BOTTLE NS SCH (10:07)
[2017-08-04 11:44] VITALS: BP 99/62
[2017-08-06] MEDS ORDERED: Levofloxacin 750 MG/150 ML 750 MG/150 ML BAG IVPB SCH (09:00)
== END 2017-08-04 17:53 | DRG 853 ==
LOC: 2NENU 17:03 → EMEROO 17:03 → SUATTDRO 19:52 → 2NENU 19:54 → 3NENU 07-31 15:28
PROVIDERS: ADMIT Internal Medicine; ATTEND Internal Medicine

== ENCOUNTER 2017-08-11 21:31 | Inpatient (IN) ==
[2017-08-11] MEDS ORDERED: 0.9 % Sodium Chloride 1,000 ML IVC ONE (21:40)
[2017-08-11 21:56] LABS: Basophils % 0.2 %; Eosinophils # 0.1 K/mcL (0.0-0.6); Eosinophils % 0.5 %; Hemoglobin 9.1 g/dL (11.5-15.4); Immature Granulocytes % 0.9 % (0-4); Lymphocytes # 1.5 K/mcL (0.6-4.6); Lymphocytes % 14.7 %; Mean Corpuscular HGB Conc 32.5 g/dL (31.6-35.5); Mean Corpuscular Hemoglobin 33.6 pg (28.0-33.3); Mean Corpuscular Volume 103.3 fL (83.0-100.0); Mean Platelet Volume 8.7 fL (9.4-12.4); Monocytes # 0.5 K/mcL (0.0-1.3); Monocytes % 5.1 %; Nucleated Red Blood Cells 0.3 /100 WBC (0); Platelet Count 249 K/mcL (140-400); Red Blood Count 2.71 M/mcL (3.82-4.97); Red Cell Distribution Width 14.1 % (11.5-14.5); Segmented Neutrophils % 78.6 %
[2017-08-11 21:58] LABS: Bilirubin,Urine Negative (Negative); Blood,Urine Trace (Negative); Clarity,Urine Turbid (Clear); Color,Urine Yellow (Yellow); Glucose,Urine (UA) Normal (Normal); Ketones,Urine Negative (Negative); Leukocyte Esterase,Urine Large (Negative); Nitrite,Urine Negative (Negative); Protein,Urine Negative (Neg-Trace); Specific Gravity,Urine 1.015 (1.010-1.025); Urobilinogen,Urine Normal (Normal)
[2017-08-11 21:59] LABS: Bacteria,Urine Moderate per hpf (None-Few); Hyaline Casts,Urine None Seen per lpf (None-Few); RBC,Urine 0-3 per hpf (0-3); Squamous Epithelial Cell,Urine Moderate per lpf (None-Few); WBC,Urine TNTC per hpf (0-3)
[2017-08-11 22:01] LABS: INR 1.2; Prothrombin Time 12.6 Seconds (9.4-12.1)
[2017-08-11 22:03] LABS: Activated Partial Thrombo Time 32.3 Seconds (26.0-36.0)
[2017-08-11 22:08] LABS: Yeast,Urine Few per hpf (None Seen)
[2017-08-11 22:18] LABS: Alanine Aminotransferase 11 Units/L (7-52); Albumin 3.4 g/dL (3.5-5.7); Albumin/Globulin Ratio 0.9 (1.1-2.2); Alkaline Phosphatase 116 Units/L (34-104); Aspartate Amino Transferase 13 Units/L (13-39); BUN/Creatinine Ratio 26 (6-26); Bilirubin,Direct 0.1 mg/dL (0.0-0.2); Bilirubin,Indirect 0.3 mg/dL (0.0-1.2); Bilirubin,Total 0.4 mg/dL (0.3-1.0); Blood Urea Nitrogen 21 mg/dL (8-23); Carbon Dioxide 40 mEq/L (23-29); Chloride 85 mEq/L (98-107); Globulin 3.6 g/dL (2.4-3.5); Glucose 130 mg/dL (70-105); Osmolality,Calculated 287 (280-300); Potassium 3.2 mEq/L (3.5-5.1); Sodium 136 mEq/L (136-145); eGFR For African Americans > 60 (> 60); eGFR For Non-African Americans > 60 (> 60)
--- NOTE | 2017-08-11 22:51 | Emergency Department Note ---
Disposition Clinical Impression: HCAP (healthcare-associated pneumonia), UTI (urinary tract infection), bacterial Disposition: Admitted As Inpatient Condition: Serious Time of Disposition: 00:00 Altered Mental Status HPI - General Chief Complaint: ED Altered Mental Status Stated Complaint: altered mental status Time Seen by Provider: 08/11/17 21:40 Source: patient Mode of arrival: EMS Limitations: altered mental status, physical limitation Nursing Notes Reviewed: Yes Vital Signs Reviewed: Yes - History of Present Illness HPI Narrative: 72-year-old female presents to the emergency department complaining of altered mental status she came from a intermediate facility where she is recently discharged from the hospital for a left-sided hip fracture. They said that she also was hypoxic at 80% versus years of history COPD and normally lives right around 88-89%. Family said she has bad COPD and has had to be on BiPAP due to having CO2 retention. Patient otherwise is having no complaints. Patient is a poor historian due to her altered mental status. Was unable to get a full complete review of systems due to patient's mental status. - Related Data Home Medications Medication Instructions Recorded Confirmed Docusate [Colace] 100 mg PO BID 06/17/15 07/29/17 Fluticasone Propionate Nasal 100 mcg NS DAILY 06/17/15 07/29/17 [Flonase] Furosemide [Lasix] 80 mg PO TID 06/17/15 07/29/17 Omeprazole [PriLOSEC] 20 mg PO BIDAC 06/17/15 07/29/17 Polyethylene Glycol 3350 [MiraLAX] 17 gm PO DAILY 06/17/15 07/29/17 Potassium Chloride [Klor-Con 60 meq PO TID 06/17/15 07/29/17 Sprinkle] Promethazine [Phenergan] 12.5 mg PO Q4H 06/17/15 07/29/17 Sennosides [Senna] 8.6 mg PO BID 06/17/15 07/29/17 Sertraline [Zoloft] 200 mg PO DAILY 06/17/15 07/29/17 Albuterol Neb [Proventil Neb] 2.5 mg IH TID 07/06/16 07/29/17 Aspirin 325 mg PO DAILY 07/06/16 07/29/17 BuPROPion SR (12 HR) [Wellbutrin 300 mg PO DAILY 07/06/16 07/29/17 SR] GuaiFENesin ER [Mucinex] 600 mg PO BID 07/06/16 07/29/17 Ipratropium/Albuterol Neb [Duoneb] 3 ml IH Q4H PRN 07/06/16 07/29/17 Nitroglycerin [Nitrostat] 0.4 mg SL Q5M PRN 07/06/16 07/29/17 metOLazone [Zaroxolyn] 2.5 mg PO Q48H 07/06/16 07/29/17 Acetaminophen [Tylenol 650mg SUPP] 650 mg RC Q6H PRN 07/29/17 07/29/17 Amino Acids/Protein Hydrolys 30 ml PO DAILY 07/29/17 07/29/17 [Pro-Stat [facility] Liquid Packet] Atropine Sulfate in 0.9% NaCl 2 drop SL Q2H PRN 07/29/17 07/29/17 [Atropine 0.01%-Ns Eye Drops] Bisacodyl [Dulcolax] 10 mg RC DAILY PRN 07/29/17 07/29/17 Buspirone HCl [Buspar] 20 mg PO BID 07/29/17 07/29/17 Calcium Polycarbophil [Fibercon] 1,250 mg PO BID 07/29/17 07/29/17 Carvedilol 12.5 mg PO BID 07/29/17 07/29/17 Dexamethasone [Decadron] 4 mg PO DAILY 07/29/17 07/29/17 Hyoscyamine SL [Levsin Sl] 0.125 - 0.25 mg SL Q2H PRN 07/29/17 07/29/17 Magnesium Oxide [Mag-Ox] 400 mg PO BID 07/29/17 07/29/17 Melatonin 10 mg PO HS 07/29/17 07/29/17 Previous Rx's Medication Instructions Recorded Ipratropium/Albuterol Neb [Duoneb] 3 ml IH Q6H #0 12/16/15 FentaNYL PATCH [Duragesic] 200 mcg TD Q72H #10 patch.td72 08/04/17 Gabapentin [Neurontin] 800 mg PO TID #90 capsule 08/04/17 LORazepam [Ativan] 1 mg PO Q4H #25 tablet 08/04/17 Morphine Immed Rel [Morphine 30 mg PO Q2H #25 tablet 08/04/17 Sulfate] Oxycodone HCl [Roxicodone 30] 30 mg PO Q4H PRN #20 tablet 08/04/17 Phenytoin ER [Dilantin ER] 100 mg PO TID #90 capsule 08/04/17 Primidone [Mysoline] 50 mg PO HS #30 tablet 08/04/17 clonazePAM [Klonopin] 1 mg PO TID #20 tablet 08/04/17 Allergies Allergy/AdvReac Type Severity Reaction Status Date / Time tetanus toxoid, adsorbed Allergy Rash Verified 06/17/15 16:10 baclofen AdvReac Confusion Verified 07/20/16 09:49 butorphanol AdvReac Confusion Verified 07/20/16 09:49 Review of Systems: As Per HPI Limitations: ROS unobtainable due to patients medical condition Past Medical History - Past Medical History Attestation: Yes The following information was validated with the patient. Medical history: Reports: arthritis, atrial fibrillation, CHF, COPD, coronary artery disease, fibromyalgia, GERD, hyperlipidemia, hypertension, osteoporosis, renal disease, seizures, other Surgical history: Reports: cholecystectomy, hip replacement, orthopedic, other, SOHAN/BSO, other Psychiatric history: Reports: anxiety, depression, other SPECIAL PROCEDURE TECH history: Reports: no SPECIAL PROCEDURE TECH history - Social History Smoking Status: Unknown if ever smoked Smokeless Tobacco Status: No Alcohol use: Reports: none Drug use: Reports: none Physical Exam - General Limitations: altered mental status, physical limitation General appearance: alert - Head Head exam: atraumatic, normocephalic, normal inspection - Eye Eye exam: Present: normal appearance, PERRL, EOMI - ENT ENT exam: normal exam, normal oropharynx, mucous membranes moist - Neck Neck exam: Present: normal inspection, full ROM, trachea midline - Chest Chest inspection: Present: normal inspection, symmetric chest wall rise - Respiratory Respiratory exam: Present: normal lung sounds bilaterally - Cardiovascular Cardiovascular exam: Present: regular rate, normal rhythm, normal heart sounds - Extremities Exam Extremities exam: Present: normal inspection, full ROM. Absent: tenderness, pedal edema - Back Exam Back exam: Present: normal inspection, full ROM. Absent: tenderness, CVA tenderness (R), CVA tenderness (L) - Neurological Exam Neurological exam: Present: alert. Absent: oriented X3 (Patient is oriented to person but not place and time.) - Expanded Neurological Exam Patient oriented to: Present: person. Absent: place, time Speech: Present: fluid speech Coma Scale Eye Opening: Spontaneous Coma Scale Motor Response: Localizes to Pain Coma Scale Verbal Response: Confused Coma Scale Total: 13 - Skin Skin exam: Present: warm, dry, intact, normal color Course Course Narrative: 72-year-old female present to the emergency department complaining of altered mental status. She was recently discharged from the hospital. Patient have a fever when she first came here. She was having a difficult time breathing as many of her respiratory distress with sats in the 80s. At this time we will do a broad workup including CBC, BMP, urinalysis with straight catheter as well as chest x-ray and CT head without contrast.. - Reevaluation(s) Reevaluation #1: Reevaluate patient as she was on a nonrebreather she did have an elevated CO2 as well as CO2 retainer but we are unable to keep sats went to reduction off do this for him start patient on BiPAP. To help get rid of some of her CO2. Chest x-ray also showed a left-sided pneumonia this was like his hospital acquired his her recent admission will start antibiotics at this time. Time: 22:54 Vital Signs Temperature 98.7 F 08/11/17 21:34 Pulse Rate 88 08/11/17 21:34 Respiratory Rate 18 08/11/17 21:34 Blood Pressure 107/77 08/11/17 21:34 O2 Sat by Pulse Oximetry 96 08/11/17 21:34 Temperature 98.7 F 08/11/17 21:34 Pulse Rate 72 08/12/17 00:01 Respiratory Rate 20 08/12/17 00:01 Blood Pressure 117/88 08/12/17 00:01 O2 Sat by Pulse Oximetry 99 08/12/17 00:01 Oxygen Delivery Oxygen Delivery Bipap Altered Mental Status - MDM Narrative Medical decision making narrative: 72-year-old female presenting to the emergency department after he admitted to the hospital 2 days ago for left hip fracture. She is having extended stay here for that. She was sent to a intermediate facility. She does have history of COPD as well as being a CO2 retainer. Her CO2 was elevated today. We tried to decrease her oxygen to help with a CO2 but patient became hypoxic that we just put patient on BiPAP and she did well after that. We are keeping her sats around 89-90%. Patient is doing better on that. She was diagnosed with a left lower lobe pneumonia based on chest x-ray so we started patient on hospital acquired pneumonia antibiotics including vancomycin, Zosyn, Levaquin. Patient is tolerating these well. Patient also had head CT done which was negative. Patient otherwise is doing well. Patient is readmitted for further evaluation as well as IV antibiotics. Spoke with Dr. Nicolas the hospital was agreed to the patient's mother service. Patient is admitted to hospice service in stable condition. Chest X-Ray 08/11/17 21:41 IMPRESSION: Left lower lung infiltrate and trace left pleural effusion may reflect pneumonia and parapneumonic effusion in the correct clinical setting. D/ / 08/11/2017 22:07:06 Kamari Diez MD / adolfo Interpreting Provider: Kamari Diez MD Head CT 08/11/17 21:41 IMPRESSION: No acute intracranial abnormality. D/ / Howard Wong MD / Howard Wong MD Interpreting Provider: Howard Wong MD - Medical Records Medical records reviewed: Yes I reviewed the patient's medical records. - Lab Data Lab results reviewed: Yes I reviewed the patient's lab results. Result diagrams: 08/11/17 21:48 08/11/17 21:48 Lab Results 08/11/17 08/11/17 08/11/17 Range/Units 21:40 21:48 21:48 WBC (4.3-11.1) K/mcL RBC (3.82-4.97) M/mcL Hgb (11.5-15.4) g/dL Hct (35.3-44.9) % MCV (83.0-100.0) fL MCH (28.0-33.3) pg MCHC (31.6-35.5) g/dL RDW (11.5-14.5) % Plt Count (140-400) K/mcL MPV (9.4-12.4) fL Immature Gran % (0-4) % Seg Neutrophils % % Lymphocytes % % Monocytes % % Eosinophils % % Basophils % % Neutrophils # (1.6-8.9) K/mcL Lymphocytes # (0.6-4.6) K/mcL Monocytes # (0.0-1.3) K/mcL Eosinophils # (0.0-0.6) K/mcL Basophils # (0.0-0.2) K/mcL Nucleated RBCs/100 WBC (0) /100 WBC PT 12.6 H (9.4-12.1) Seconds INR 1.2 APTT 32.3 (26.0-36.0) Seconds Sodium (136-145) mEq/L Potassium (3.5-5.1) mEq/L Chloride (98-107) mEq/L Carbon Dioxide (23-29) mEq/L BUN (8-23) mg/dL Creatinine (0.60-1.20) mg/dL Est GFR ( Amer) (> 60) Est GFR (Non-Af Amer) (> 60) BUN/Creatinine Ratio (6-26) Glucose (70-105) mg/dL Calculated Osmolality (280-300) Lactic Acid (0.5-2.2) mmol/L Calcium (8.6-10.3) mg/dL Total Bilirubin (0.3-1.0) mg/dL Direct Bilirubin (0.0-0.2) mg/dL Indirect Bilirubin (0.0-1.2) mg/dL AST (13-39) Units/L ALT (7-52) Units/L Alkaline Phosphatase (34-104) Units/L Ammonia 23 (16-53) mcmol/L Troponin I (< 0.04) ng/mL Serum Total Protein (6.4-8.9) g/dL Albumin (3.5-5.7) g/dL Globulin (2.4-3.5) g/dL Albumin/Globulin Ratio (1.1-2.2) Urine Color Yellow (Yellow) Urine Clarity Turbid A (Clear) Urine pH 7.0 (5.0-8.0) pH Units Ur Specific [place] 1.015 (1.010-1.025) Urine Protein Negative (Neg-Trace) mg/dL Urine Glucose (UA) Normal (Normal) mg/dL Urine Ketones Negative (Negative) mg/dL Urine Blood Trace H (Negative) Urine Nitrite Negative (Negative) Urine Bilirubin Negative (Negative) Urine Urobilinogen Normal (Normal) mg/dL Ur Leukocyte Esterase Large H (Negative) Urine Microscopic RBC 0-3 (0-3) per hpf Urine Microscopic WBC TNTC H (0-3) per hpf Ur Squamous Epith Cells Moderate H (None-Few) per lpf Urine Bacteria Moderate H (None-Few) per hpf Hyaline Casts None Seen (None-Few) per lpf Urine Yeast Few H (None Seen) per hpf Ur Culture Indicated? YES A (NO) 08/11/17 08/11/17 08/11/17 Range/Units 21:48 21:48 21:48 WBC 10.2 (4.3-11.1) K/mcL RBC 2.71 L (3.82-4.97) M/mcL Hgb 9.1 L (11.5-15.4) g/dL Hct 28.0 L (35.3-44.9) % MCV 103.3 H (83.0-100.0) fL MCH 33.6 H (28.0-33.3) pg MCHC 32.5 (31.6-35.5) g/dL RDW 14.1 (11.5-14.5) % Plt Count 249 (140-400) K/mcL MPV 8.7 L (9.4-12.4) fL Immature Gran % 0.9 (0-4) % Seg Neutrophils % 78.6 % Lymphocytes % 14.7 % Monocytes % 5.1 % Eosinophils % 0.5 % Basophils % 0.2 % Neutrophils # 8.0 (1.6-8.9) K/mcL Lymphocytes # 1.5 (0.6-4.6) K/mcL Monocytes # 0.5 (0.0-1.3) K/mcL Eosinophils # 0.1 (0.0-0.6) K/mcL Basophils # 0.0 (0.0-0.2) K/mcL Nucleated RBCs/100 WBC 0.3 H (0) /100 WBC PT (9.4-12.1) Seconds INR APTT (26.0-36.0) Seconds Sodium 136 (136-145) mEq/L Potassium 3.2 L (3.5-5.1) mEq/L Chloride 85 L (98-107) mEq/L Carbon Dioxide 40 H* (23-29) mEq/L BUN 21 (8-23) mg/dL Creatinine 0.81 (0.60-1.20) mg/dL Est GFR ( Amer) > 60 (> 60) Est GFR (Non-Af Amer) > 60 (> 60) BUN/Creatinine Ratio 26 (6-26) Glucose 130 H (70-105) mg/dL Calculated Osmolality 287 (280-300) Lactic Acid (0.5-2.2) mmol/L Calcium 9.0 (8.6-10.3) mg/dL Total Bilirubin 0.4 (0.3-1.0) mg/dL Direct Bilirubin 0.1 (0.0-0.2) mg/dL Indirect Bilirubin 0.3 (0.0-1.2) mg/dL AST 13 (13-39) Units/L ALT 11 (7-52) Units/L Alkaline Phosphatase 116 H (34-104) Units/L Ammonia (16-53) mcmol/L Troponin I < 0.03 (< 0.04) ng/mL Serum Total Protein 7.0 (6.4-8.9) g/dL Albumin 3.4 L (3.5-5.7) g/dL Globulin 3.6 H (2.4-3.5) g/dL Albumin/Globulin Ratio 0.9 L (1.1-2.2) Urine Color (Yellow) Urine Clarity (Clear) Urine pH (5.0-8.0) pH Units Ur Specific [place] (1.010-1.025) Urine Protein (Neg-Trace) mg/dL Urine Glucose (UA) (Normal) mg/dL Urine Ketones (Negative) mg/dL Urine Blood (Negative) Urine Nitrite (Negative) Urine Bilirubin (Negative) Urine Urobilinogen (Normal) mg/dL Ur Leukocyte Esterase (Negative) Urine Microscopic RBC (0-3) per hpf Urine Microscopic WBC (0-3) per hpf Ur Squamous Epith Cells (None-Few) per lpf Urine Bacteria (None-Few) per hpf Hyaline Casts (None-Few) per lpf Urine Yeast (None Seen) per hpf Ur Culture Indicated? (NO) 08/11/17 Range/Units 23:19 WBC (4.3-11.1) K/mcL RBC (3.82-4.97) M/mcL Hgb (11.5-15.4) g/dL Hct (35.3-44.9) % MCV (83.0-100.0) fL MCH (28.0-33.3) pg MCHC (31.6-35.5) g/dL RDW (11.5-14.5) % Plt Count (140-400) K/mcL MPV (9.4-12.4) fL Immature Gran % (0-4) % Seg Neutrophils % % Lymphocytes % % Monocytes % % Eosinophils % % Basophils % % Neutrophils # (1.6-8.9) K/mcL Lymphocytes # (0.6-4.6) K/mcL Monocytes # (0.0-1.3) K/mcL Eosinophils # (0.0-0.6) K/mcL Basophils # (0.0-0.2) K/mcL Nucleated RBCs/100 WBC (0) /100 WBC PT (9.4-12.1) Seconds INR APTT (26.0-36.0) Seconds Sodium (136-145) mEq/L Potassium (3.5-5.1) mEq/L Chloride (98-107) mEq/L Carbon Dioxide (23-29) mEq/L BUN (8-23) mg/dL Creatinine (0.60-1.20) mg/dL Est GFR ( Amer) (> 60) Est GFR (Non-Af Amer) (> 60) BUN/Creatinine Ratio (6-26) Glucose (70-105) mg/dL Calculated Osmolality (280-300) Lactic Acid 0.6 (0.5-2.2) mmol/L Calcium (8.6-10.3) mg/dL Total Bilirubin (0.3-1.0) mg/dL Direct Bilirubin (0.0-0.2) mg/dL Indirect Bilirubin (0.0-1.2) mg/dL AST (13-39) Units/L ALT (7-52) Units/L Alkaline Phosphatase (34-104) Units/L Ammonia (16-53) mcmol/L Troponin I (< 0.04) ng/mL Serum Total Protein (6.4-8.9) g/dL Albumin (3.5-5.7) g/dL Globulin (2.4-3.5) g/dL Albumin/Globulin Ratio (1.1-2.2) Urine Color (Yellow) Urine Clarity (Clear) Urine pH (5.0-8.0) pH Units Ur Specific [place] (1.010-1.025) Urine Protein (Neg-Trace) mg/dL Urine Glucose (UA) (Normal) mg/dL Urine Ketones (Negative) mg/dL Urine Blood (Negative) Urine Nitrite (Negative) Urine Bilirubin (Negative) Urine Urobilinogen (Normal) mg/dL Ur Leukocyte Esterase (Negative) Urine Microscopic RBC (0-3) per hpf Urine Microscopic WBC (0-3) per hpf Ur Squamous Epith Cells (None-Few) per lpf Urine Bacteria (None-Few) per hpf Hyaline Casts (None-Few) per lpf Urine Yeast (None Seen) per hpf Ur Culture Indicated? (NO) - Radiology Data Radiology results reviewed: Yes I reviewed the patient's radiology results. - EKG Data EKG attestation: Yes I reviewed and interpreted this EKG. EKG results narrative: EKG done at 2146 room myself and the attending shows sinus rhythm a rate of 77, ID interval 133, QRS 97, QTC [address] changes, no acute T-wave L is no other signs of ischemia. No signs of heart hypertrophy or heart block. No signs of the repeat OB/Brugada syndrome. This is unchanged when compared with old EKG done 07/31/17 there are just multiple PVCs. Critical Care Time Critical Care Time: Yes Total Critical Care Time: 45 Attestation: Critical care performed: Time is exclusive of separately billable procedures. Time includes: direct patient care, patient reassessment, coordination of patient care, interpretation of data (laboratory data, radiology data, and respiratory data), review of patient's medical records, medical consultation and documentation of patient care. Procedures included in critical care time: Procedures excluded from critical care time: Attestation Statement - Attestation Attestation: I, Evan Gilmore MD, personally evaluated this patient and discussed their management with the resident physician. I reviewed the resident's note and agree with the documented findings, medical decision making, and plan of care. 72-year-old female presents to the emergency department from a local shelter for increased confusion and hypoxia. Recently had a hip fracture repaired and was discharged to the shelter yesterday. Tonight the shelter reports that she is more confused and talking out of her head and her oxygen saturations were in the lower 80s on oxygen. She is on oxygen chronically and apparently rarely gets above 90%. On arrival here the patient does answer some questions but is definitely confused and oriented to person only. On examination patient is a well-developed well-nourished elderly female in moderate respiratory distress. No cyanosis or diaphoresis. Breath sounds are equal bilaterally with coarse bilateral inspiratory and expiratory rhonchi. Heart regular with a mild tachycardia. Abdomen soft and nontender. Bowel sounds present. Dressing in place over the left hip surgical site. Labs reviewed. Head CT shows no acute intracranial abnormality. Chest x-ray shows a left lower lobe pneumonia. Patient was placed on BiPAP. The hospitalist, Dr. Nicolas, was consulted and accepted admission of the patient.
[2017-08-11] MEDS ORDERED: Levofloxacin 750 MG/150 ML 750 MG/150 ML BAG IVPB ONE (22:55)
[2017-08-11] MEDS ORDERED: Vancomycin (wt based) 1,000 MG VIAL IVPB SCH (22:55)
[2017-08-12] MEDS ORDERED: Naloxone 0.4 MG/ML INJ IVP PRN (00:28)
[2017-08-12] MEDS ORDERED: Acetaminophen 325 MG TABLET PO PRN (00:28)
[2017-08-12] MEDS ORDERED: Ondansetron ODT 4 MG TAB.RAPDIS SL PRN (00:28)
[2017-08-12] MEDS ORDERED: Vancomycin 1,000 MG in D5% in Water 250 ML IVPB SCH (01:00)
[2017-08-12] MEDS ORDERED: Vancomycin (wt based) 1,000 MG VIAL IVPB SCH (01:00)
[2017-08-12] MEDS ORDERED: Albuterol 2.5 MG/3 ML NEBULIZER IH PRN (01:29)
--- NOTE | 2017-08-12 01:29 | Internal Med History&Physical ---
<Carlos Richardson - Last Filed: 08/12/17 02:37> Date of Encounter: 08/12/17 Time of Encounter: 01:00 Assessment and Plan (1) HCAP (healthcare-associated pneumonia) Current visit: Yes Status: Acute CXR demonstrates LLL infiltrate Recent admission for Lt hip fracture IV antibiotics ordered -- vanc/zosyn/levaquin Presently on bipap Duonebs ANNIKA Alb IH PRN Continuous tele/pulse-ox (2) Acute on chronic respiratory failure with hypoxia Current visit: No Status: Acute due to HCAP & COPD exac BNP pending though clinically doubt acute CHF plan as above (3) COPD exacerbation Current visit: No Status: Acute due to #1 IV solumedrol ordered plan as above (4) Altered mental status Current visit: No Status: Acute obtunded, likely secondary to respiratory status NPO for now Qualifiers: Altered mental status type: transient alteration of awareness Qualified Code(s): R40.4 - Transient alteration of awareness (5) Hypokalemia Current visit: No Status: Chronic will give IV potassium over 4 hours and recheck in AM will check Mg++ and correct as needed (6) Hip fracture, left Current visit: Yes Status: Resolved 07/31/17, ORIF, POD 12 was in SNF for recovery prior to current admission at [facility] Qualifiers: Encounter type: subsequent encounter Fracture type: closed Fracture healing: with routine healing Qualified Code(s): S72.002D - Fracture of unspecified part of neck of left femur, subsequent encounter for closed fracture with routine healing (7) Atrial fibrillation with RVR Current visit: No Status: Resolved historical currently RRR with no tachycardia (8) DVT prophylaxis Current visit: No Status: Acute subq heparin Internal Medicine - H&P: HPI Chief complaint: AMS/SOA Admitted From: Emergency Dept Plans for Post Hospital Care: Transfer Snf Facility History of present illness: Ms. Najera is a 72 year old female POD 12 s/p ORIF Lt femur after fracture who presented to the ED from SNF for AMS and SOA. Patient is in stuporous condition and unable to provide further history at this time. Being admitted for AMS, LLL HCAP, and COPD exacerbation. ED workup demonstrates hypokalemia, normal WBC ct, normal troponin, chronic anemia, possible UTI, and LLL infiltrate on CXR. CT-head was normal. Lactate was normal. Blood cultures pending. Past Med Surg Social Fam HX - Past Medical History Medical history: arthritis, atrial fibrillation, CHF, COPD, coronary artery disease, fibromyalgia, GERD, hyperlipidemia, hypertension, osteoporosis, renal disease, seizures, other Psychiatric history: anxiety, depression, other - Past Surgical History Surgical History: cholecystectomy, hip replacement, orthopedic, other, SOHAN/BSO, other - Social History Smoking Status: Unknown if ever smoked Smokeless Tobacco Status: No Alcohol use: none Drug use: none - Family History Father Living Status: Hx Family Cardiac Disorders: Yes (PR) Mother Living Status: Hx Family Cancer: Yes (leukemia) Sister Living Status: Hx Family Cardiac Disorders: No Hx Family Respiratory Disorders: No Hx Family Cancer: No Hx Family GI Disorders: No Hx Family Endocrine Disorder: No Hx Family Neuromuscular Disorders: No Hx Family Neurologic Disorders: No Hx Family HEENT Disorders: No Hx Family Autoimmune Disorders: No Brother Living Status: Hx Family Cardiac Disorders: Yes (PR) Hx Family Neurologic Disorders: Yes (CVA) Internal Medicine - H&P: Meds Docusate [Colace] 100 mg PO BID 06/17/15 [History] Fluticasone Propionate Nasal [Flonase] 100 mcg NS DAILY 06/17/15 [History] Furosemide [Lasix] 80 mg PO TID 06/17/15 [History] Omeprazole [PriLOSEC] 20 mg PO BIDAC 06/17/15 [History] Polyethylene Glycol 3350 [MiraLAX] 17 gm PO DAILY 06/17/15 [History] Potassium Chloride [Klor-Con Sprinkle] 60 meq PO TID 06/17/15 [History] Promethazine [Phenergan] 12.5 mg PO Q4H 06/17/15 [History] Sennosides [Senna] 8.6 mg PO BID 06/17/15 [History] Sertraline [Zoloft] 200 mg PO DAILY 06/17/15 [History] Ipratropium/Albuterol Neb [Duoneb] 3 ml IH Q6H #0 12/16/15 [Rx] Albuterol Neb [Proventil Neb] 2.5 mg IH TID 07/06/16 [History] Aspirin 325 mg PO DAILY 07/06/16 [History] BuPROPion SR (12 HR) [Wellbutrin SR] 300 mg PO DAILY 07/06/16 [History] GuaiFENesin ER [Mucinex] 600 mg PO BID 07/06/16 [History] Ipratropium/Albuterol Neb [Duoneb] 3 ml IH Q4H PRN 07/06/16 [History] Nitroglycerin [Nitrostat] 0.4 mg SL Q5M PRN 07/06/16 [History] metOLazone [Zaroxolyn] 2.5 mg PO Q48H 07/06/16 [History] Acetaminophen [Tylenol 650mg SUPP] 650 mg RC Q6H PRN 07/29/17 [History] Amino Acids/Protein Hydrolys [Pro-Stat Awc Liquid Packet] 30 ml PO DAILY [History] Atropine Sulfate in 0.9% NaCl [Atropine 0.01%-Ns Eye Drops] 2 drop SL Q2H PRN [History] Bisacodyl [Dulcolax] 10 mg RC DAILY PRN 07/29/17 [History] Buspirone HCl [Buspar] 20 mg PO BID 07/29/17 [History] Calcium Polycarbophil [Fibercon] 1,250 mg PO BID 07/29/17 [History] Carvedilol 12.5 mg PO BID 07/29/17 [History] Dexamethasone [Decadron] 4 mg PO DAILY 07/29/17 [History] Hyoscyamine SL [Levsin Sl] 0.125 - 0.25 mg SL Q2H PRN 07/29/17 [History] Magnesium Oxide [Mag-Ox] 400 mg PO BID 07/29/17 [History] Melatonin 10 mg PO HS 07/29/17 [History] FentaNYL PATCH [Duragesic] 200 mcg TD Q72H #10 patch.td72 08/04/17 [Rx] Gabapentin [Neurontin] 800 mg PO TID #90 capsule 08/04/17 [Rx] LORazepam [Ativan] 1 mg PO Q4H #25 tablet 08/04/17 [Rx] Morphine Immed Rel [Morphine Sulfate] 30 mg PO Q2H #25 tablet 08/04/17 [Rx] Oxycodone HCl [Roxicodone 30] 30 mg PO Q4H PRN #20 tablet 08/04/17 [Rx] Phenytoin ER [Dilantin ER] 100 mg PO TID #90 capsule 08/04/17 [Rx] Primidone [Mysoline] 50 mg PO HS #30 tablet 08/04/17 [Rx] clonazePAM [Klonopin] 1 mg PO TID #20 tablet 08/04/17 [Rx] 3 Allergy/AdvReac Type Severity Reaction Status Date / Time tetanus toxoid, adsorbed Allergy Rash Verified 06/17/15 16:10 baclofen AdvReac Confusion Verified 07/20/16 09:49 butorphanol AdvReac Confusion Verified 07/20/16 09:49 ROS unobtainable: due to mental status All Systems PM: A 10-system review of systems was performed and is negative for pertinent findings except as documented above in the HPI. - Constitutional Vitals: Temp Pulse Resp BP Pulse Ox 98.7 F 80 21 133/77 97 08/11/17 21:34 08/12/17 01:18 08/12/17 01:18 08/12/17 01:18 08/12/17 01:18 General appearance: Present: A&O X 0 Exam: CONSTITUTIONAL: awake, but does not verbally respond to questioning; on BiPAP during initial encounter HEAD: Normocephalic; atraumatic. EYES: PERRL Oropharynx: pink/moist, no tonsillar edema/erythema/exudates RESP: on BIPAP, wheezes heard throughout with no distinctly appreciated rhonchi CARD: Regular rhythm, without murmurs, rubs, or gallop ABD: grossly normal, soft, no distention/rigidity SKIN: normal appearance, no pallor/diaphoresis,mottling,jaundice,cyanosis EXT: Left hip/thigh surgical sites appear to be well healing with some distal bruising; no edema bilaterally or other skin color change; DP pulses 2+ & symmetrical PSYCH: not apparently alert Internal Med - H&P Results - Labs CBC & Chem 7: 08/11/17 21:48 08/11/17 21:48 - EKG Data -: EKG Interpreted by Myself EKG shows normal: sinus rhythm, axis, intervals, QRS complexes, ST-T waves Rate: normal <Elan Nicolas - Last Filed: 08/12/17 07:16> Date of Encounter: 08/12/17 Internal Medicine - H&P: HPI History of present illness: Ms. Najera is a 72 year old female All Systems PM: A 10-system review of systems was performed and is negative for pertinent findings except as documented above in the HPI. - Constitutional Vitals: Temp Pulse Resp BP Pulse Ox 99 F 92 16 137/80 94 08/12/17 06:31 08/12/17 06:35 08/12/17 06:31 08/12/17 06:35 08/12/17 06:31 Internal Med - H&P Results - Labs CBC & Chem 7: 08/12/17 04:13 08/12/17 04:13 Labs: Short CBC 08/12/17 Range/Units 04:13 WBC 9.6 (4.3-11.1) K/mcL Hgb 8.4 L (11.5-15.4) g/dL Hct 25.4 L (35.3-44.9) % Plt Count 203 (140-400) K/mcL Neutrophils # 7.2 (1.6-8.9) K/mcL BMP 08/12/17 04:13 Sodium 136 Potassium 2.8 L Chloride 88 L Carbon Dioxide 42 H* BUN 19 Creatinine 0.72 Glucose 121 H Calcium 8.6 - ABG Interpretation ABG results: 08/12/17 06:12 VBG pH 7.41 VBG pCO2 68 H VBG pO2 66 H VBG HCO3 43 H - Attending Attestation I have seen and examined pt independently. I have discussed with Resident physician Dr Richardson regarding the management plan. Agree with the documentation
[2017-08-12] MEDS ORDERED: 0.9 % Sodium Chloride w KCl 40 MEQ/1,000 ML MLS IVC SCH (01:30)
[2017-08-12] MEDS: *HR* HYDROmorphone (PF) 1 MG/ML SYRINGE IVP PRN ×4 (02:07→19:39)
[2017-08-12] MEDS: Ipratropium/Albuterol Neb 3 ML IH SCH ×6 (03:25→23:20)
[2017-08-12 04:53] LABS: Basophils % 0.1 %; Eosinophils # 0.1 K/mcL (0.0-0.6); Eosinophils % 0.7 %; Hematocrit 25.4 % (35.3-44.9); Hemoglobin 8.4 g/dL (11.5-15.4); Immature Granulocytes % 0.8 % (0-4); Lymphocytes # 1.5 K/mcL (0.6-4.6); Mean Corpuscular HGB Conc 33.1 g/dL (31.6-35.5); Mean Corpuscular Hemoglobin 34.3 pg (28.0-33.3); Mean Corpuscular Volume 103.7 fL (83.0-100.0); Monocytes # 0.8 K/mcL (0.0-1.3); Neutrophils # 7.2 K/mcL (1.6-8.9); Platelet Count 203 K/mcL (140-400); Red Blood Count 2.45 M/mcL (3.82-4.97); Red Cell Distribution Width 14.1 % (11.5-14.5); Segmented Neutrophils % 74.4 %
[2017-08-12] MEDS: *HR* Heparin 5,000 UNIT/ML VIAL SQ SCH ×2 (05:32→19:40)
[2017-08-12] MEDS: methylPREDNISolone 125 MG/2 ML VIAL IVP SCH ×2 (05:32→12:04)
[2017-08-12 05:34] LABS: BUN/Creatinine Ratio 26 (6-26); Blood Urea Nitrogen 19 mg/dL (8-23); Calcium 8.6 mg/dL (8.6-10.3); Carbon Dioxide 42 mEq/L (23-29); Chloride 88 mEq/L (98-107); Glucose 121 mg/dL (70-105); Magnesium 1.7 mg/dL (1.6-2.6); Osmolality,Calculated 286 (280-300); Potassium 2.8 mEq/L (3.5-5.1); Sodium 136 mEq/L (136-145); eGFR For African Americans > 60 (> 60); eGFR For Non-African Americans > 60 (> 60)
[2017-08-12 06:15] LABS: VBG HCO3 43 mEq/L (21-27); VBG PCO2 68 mmHg (41-51); VBG PH 7.41 pH Units (7.32-7.42); VBG PO2 66 mmHg (25-50)
[2017-08-12] MEDS ORDERED: Potassium Chloride 40 MEQ, Lidocaine 1% 2 ML in D5% in Water 500 ML IVPB ONE (07:12)
[2017-08-12] MEDS ORDERED: Aminoglycoside Consult 1 EACH MC ONE (08:13)
[2017-08-12] MEDS: Levofloxacin 750 MG/150 ML 750 MG/150 ML BAG IVPB SCH (08:34)
--- NOTE | 2017-08-12 09:14 | Internal Med Progress Note ---
<RikiPaulino - Last Filed: 08/12/17 14:42> Date of Encounter: 08/12/17 Time of Encounter: 09:11 - Assessment and plan (1) HCAP (healthcare-associated pneumonia) Current Visit: Yes Status: Acute Assessment and plan: HCAP vs CODP exacerbation vs consider emboli from recent surgery. Patient transferred from SNF to [facility] 08/26 for AMS and SOB. CXR LLL infiltrates. no leukocytosis, afebrile. Today patient is A&O x3. Home O2 4.5 L. VBG pH 7.41, pCO2 68. chronic CO2 in COPD most likely. Patient is [facility], once stable patient will be sent back to [facility]. - currently on BiPAP, will try to wean off and on to home O2 - D/C vanc - continue levaquin and zosyn Day 1 - duonebs scheduled - continuous tele/pulse ox - Cultures pending (2) UTI (urinary tract infection) Current Visit: Yes Status: Acute Assessment and plan: previous hx of UTI. 07/19/2016 was hospitalized for UTI VRE. - UA cultures pending - current coverage with levaquin - strict I/O Qualifiers: Qualified Code(s): N39.0 - Urinary tract infection, site not specified; R31.9 - Hematuria, unspecified; R31.9 - Hematuria, unspecified (3) COPD (chronic obstructive pulmonary disease) Current Visit: Yes Status: Chronic Assessment and plan: IV solumedrol ordered plan as above Qualifiers: COPD type: unspecified COPD Qualified Code(s): J44.9 - Chronic obstructive pulmonary disease, unspecified (4) Hypokalemia Current Visit: Yes Status: Chronic Assessment and plan: K+ on admission 3.2. today 22.8 - replenished K w/ PO - follow closely (5) Altered mental status Current Visit: Yes Status: Acute Assessment and plan: Resolved Qualifiers: Altered mental status type: transient alteration of awareness Qualified Code(s): R40.4 - Transient alteration of awareness (6) Acute on chronic respiratory failure with hypoxia and hypercapnia Current Visit: Yes Status: Acute Assessment and plan: due to HCAP & COPD exac. BNP 29 - most likely r/o CHF - plan as above (7) Fracture of hip, left, closed Current Visit: No Status: Acute Assessment and plan: concerns for emobli. will continue to monitor Qualifiers: Encounter type: initial encounter Qualified Code(s): S72.002A - Fracture of unspecified part of neck of left femur, initial encounter for closed fracture (8) Atrial fibrillation with RVR Current Visit: Yes Status: Resolved Assessment and plan: currently regular rate and rhythm. - restarting home carvedilol (9) DVT prophylaxis Current Visit: Yes Status: Acute Assessment and plan: heparin SQ - Subjective Interval history: Ms Najera is a 72 yo female w/ PMHx arthritis, atrial fibrillation, CHF, COPD, coronary artery disease, fibromyalgia, GERD, hyperlipidemia, hypertension, osteoporosis, renal disease, seizures, and had femur repair on 08/01/17 at [facility] presented to ED with AMS and SOB. Today patient was oriented and stating she was in comfort besides leg pain from her recent procedure. No events overnight , No new complaints. denies fever, chills, recent wt loss. - Constitutional Vitals: Temp Pulse Resp BP Pulse Ox 99 F 92 24 137/80 93 08/12/17 06:31 08/12/17 06:35 08/12/17 07:31 08/12/17 06:35 08/12/17 07:31 General appearance: Present: cooperative, A&O X 3, pleasant, no acute distress, answers questions appropriately - Respiratory Respiratory exam: Present: prolonged expiratory phase, wheezes. Absent: accessory muscle use, chest wall tenderness, decreased breath sounds, rales, respiratory distress - Cardiovascular Cardiovascular exam: Present: RRR, +S1, +S2. Absent: diastolic murmur, gallop, rubs, systolic murmur - GI/Abdominal GI/Abdominal exam: Present: normal bowel sounds, soft, no peritoneal signs. Absent: distended, tenderness - Psychiatric Psychiatric exam: Present: normal affect, normal mood Internal Medicine: Result - Labs CBC & Chem 7: 08/12/17 04:13 08/12/17 04:13 Labs: Short CBC 08/12/17 Range/Units 04:13 WBC 9.6 (4.3-11.1) K/mcL Hgb 8.4 L (11.5-15.4) g/dL Hct 25.4 L (35.3-44.9) % Plt Count 203 (140-400) K/mcL Neutrophils # 7.2 (1.6-8.9) K/mcL BMP 08/12/17 04:13 Sodium 136 Potassium 2.8 L Chloride 88 L Carbon Dioxide 42 H* BUN 19 Creatinine 0.72 Glucose 121 H Calcium 8.6 - ABG Interpretation ABG results: PT/INR, D-dimer PT 12.6 Seconds (9.4-12.1) H 08/11/17 21:48 Consult Discharge Plan - Plan Referrals: Rekha Burrell MD [Primary Care Provider] - <Alexis Turner - Last Filed: 08/12/17 17:47> Date of Encounter: 08/12/17 - Constitutional Vitals: Temp Pulse Resp BP Pulse Ox 97.9 F 80 16 133/49 100 08/12/17 15:57 08/12/17 15:57 08/12/17 15:57 08/12/17 15:57 08/12/17 15:57 Internal Medicine: Result - Labs CBC & Chem 7: 08/12/17 04:13 08/12/17 14:51 Labs: Short CBC 08/12/17 Range/Units 04:13 WBC 9.6 (4.3-11.1) K/mcL Hgb 8.4 L (11.5-15.4) g/dL Hct 25.4 L (35.3-44.9) % Plt Count 203 (140-400) K/mcL Neutrophils # 7.2 (1.6-8.9) K/mcL BMP 08/12/17 08/12/17 04:13 14:51 Sodium 136 129 L Potassium 2.8 L 3.8 D Chloride 88 L 87 L Carbon Dioxide 42 H* 33 H BUN 19 20 Creatinine 0.72 0.90 Glucose 121 H 176 H Calcium 8.6 8.5 L - ABG Interpretation ABG results: PT/INR, D-dimer PT 12.6 Seconds (9.4-12.1) H 08/11/17 21:48 - Attending Attestation I examined this patient and my medical decision-making was reviewed with the Resident Physician on 08/12/17. I agree with the documented findings, disposition and treatment plan as described except to the extent set forth below. Ms Najera was admitted earlier today for acute encephalopathy and respiratory failure. She remains moderate to high risk. Ms Najera is much more alert note. Bipap removed. She is very diaphoretic. Exam alert. Diaphoretic Heart reg Lungs diminished Plan Bipap as needed Restart some home meds - she is on a lot of narcotic and I suspect she is having some withdrawal. If stable anticipate return to SNF this weekend if able.
[2017-08-12] MEDS ORDERED: acetaZOLAMIDE 250 MG TABLET PO SCH (10:00)
[2017-08-12] MEDS: Piperacillin/Tazobactam 3.375 GM/200 ML BAG IVPB SCH ×2 (10:15→19:39)
[2017-08-12] MEDS: *HR* HYDROcodone/Acet 5/325 mg TABLET PO PRN ×2 (10:16→16:34)
[2017-08-12] MEDS: Potassium Chloride Elixir 20 MEQ/15 ML UDC PO SCH (10:16)
[2017-08-12] MEDS ORDERED: Bisacodyl 10 MG RECTAL SUPPOSITORY RC PRN (14:17)
[2017-08-12] MEDS ORDERED: Atropine Sulfate 1% 40 DROP/2 ML BOTTLE SL PRN (14:17)
[2017-08-12] MEDS ORDERED: Nitroglycerin 0.4 MG TAB.SUBL SL PRN (14:17)
[2017-08-12] MEDS ORDERED: NON-FORMULARY MEDICATION 1 EACH EACH (Carvedilol [Carvedilol] 12.5 MG) PO SCH (14:30)
[2017-08-12 15:45] LABS: BUN/Creatinine Ratio 22 (6-26); Blood Urea Nitrogen 20 mg/dL (8-23); Calcium 8.5 mg/dL (8.6-10.3); Carbon Dioxide 33 mEq/L (23-29); Chloride 87 mEq/L (98-107); Glucose 176 mg/dL (70-105); Osmolality,Calculated 275 (280-300); Potassium 3.8 mEq/L (3.5-5.1); Sodium 129 mEq/L (136-145); eGFR For African Americans > 60 (> 60); eGFR For Non-African Americans > 60 (> 60)
[2017-08-12] MEDS: *HR* FentaNYL PATCH 100 MCG PATCH TD SCH (16:09)
[2017-08-12] MEDS: clonazePAM 1 MG TABLET PO SCH ×2 (16:31→21:08)
[2017-08-12] MEDS: Gabapentin 400 MG CAPSULE PO SCH ×2 (16:32→21:08)
[2017-08-12] MEDS: metOLazone 2.5 MG TABLET PO SCH (16:34)
[2017-08-12] MEDS: MethylPREDNISolone 40 MG/ML VIAL IVP SCH (16:38)
[2017-08-12] MEDS: Aspirin 325 MG TABLET PO SCH (19:39)
[2017-08-12] MEDS: Fluticasone Propionate Nasal 50 MCG/SPRAY BOTTLE NS SCH (19:39)
[2017-08-12] MEDS: BuPROPion SR (12 HR) 150 MG TABLET PO SCH (19:39)
[2017-08-12] MEDS: Melatonin 3 MG TABLET PO SCH (21:07)
[2017-08-12] MEDS: Primidone 50 MG TABLET PO SCH (21:08)
[2017-08-12] MEDS: Sennosides 8.6 MG TABLET PO SCH (21:08)
[2017-08-12] MEDS: Magnesium Oxide 400 MG TABLET PO SCH (21:09)
[2017-08-12] MEDS: Nystatin POWDER 30 GM BOTTLE TP SCH (21:10)
[2017-08-12] MEDS ORDERED: Piperacillin/Tazobactam 3.375 GM/200 ML BAG IVPB ONE (22:55)
[2017-08-13] MEDS: MethylPREDNISolone 40 MG/ML VIAL IVP SCH ×2 (00:19→08:27)
[2017-08-13] MEDS: *HR* HYDROmorphone (PF) 1 MG/ML SYRINGE IVP PRN ×3 (00:20→10:58)
[2017-08-13] MEDS: Piperacillin/Tazobactam 3.375 GM/200 ML BAG IVPB SCH ×3 (00:20→17:52)
[2017-08-13] MEDS: Ipratropium/Albuterol Neb 3 ML IH SCH ×6 (04:06→23:21)
[2017-08-13 05:11] LABS: Basophils % 0.1 %; Hematocrit 22.8 % (35.3-44.9); Hemoglobin 7.4 g/dL (11.5-15.4); Immature Granulocytes % 1.1 % (0-4); Lymphocytes # 0.5 K/mcL (0.6-4.6); Lymphocytes % 6.1 %; Mean Corpuscular HGB Conc 32.5 g/dL (31.6-35.5); Mean Corpuscular Hemoglobin 33.5 pg (28.0-33.3); Mean Corpuscular Volume 103.2 fL (83.0-100.0); Mean Platelet Volume 9.3 fL (9.4-12.4); Monocytes # 0.2 K/mcL (0.0-1.3); Neutrophils # 6.8 K/mcL (1.6-8.9); Nucleated Red Blood Cells 0.4 /100 WBC (0); Platelet Count 192 K/mcL (140-400); Red Blood Count 2.21 M/mcL (3.82-4.97); Red Cell Distribution Width 14.5 % (11.5-14.5); Segmented Neutrophils % 89.7 %
[2017-08-13 05:21] LABS: BUN/Creatinine Ratio 24 (6-26); Blood Urea Nitrogen 21 mg/dL (8-23); Calcium 8.8 mg/dL (8.6-10.3); Carbon Dioxide 32 mEq/L (23-29); Chloride 94 mEq/L (98-107); Glucose 143 mg/dL (70-105); Osmolality,Calculated 281 (280-300); Potassium 3.2 mEq/L (3.5-5.1); Sodium 133 mEq/L (136-145); eGFR For African Americans > 60 (> 60); eGFR For Non-African Americans > 60 (> 60)
[2017-08-13] MEDS: *HR* Heparin 5,000 UNIT/ML VIAL SQ SCH ×2 (06:08→17:52)
[2017-08-13] MEDS: Gabapentin 400 MG CAPSULE PO SCH ×3 (08:25→20:22)
[2017-08-13] MEDS: Sennosides 8.6 MG TABLET PO SCH ×2 (08:26→20:23)
[2017-08-13] MEDS: BuPROPion SR (12 HR) 150 MG TABLET PO SCH (08:26)
[2017-08-13] MEDS: Nystatin POWDER 30 GM BOTTLE TP SCH ×2 (08:27→20:24)
[2017-08-13] MEDS: Potassium Chloride Elixir 20 MEQ/15 ML UDC PO SCH (08:27)
[2017-08-13] MEDS: Magnesium Oxide 400 MG TABLET PO SCH ×2 (08:27→20:23)
[2017-08-13] MEDS: clonazePAM 1 MG TABLET PO SCH ×3 (08:27→20:23)
[2017-08-13] MEDS: Aspirin 325 MG TABLET PO SCH (08:27)
[2017-08-13] MEDS: Fluticasone Propionate Nasal 50 MCG/SPRAY BOTTLE NS SCH (08:28)
[2017-08-13] MEDS: Levofloxacin 750 MG/150 ML 750 MG/150 ML BAG IVPB SCH (08:28)
[2017-08-13] MEDS: *HR* HYDROcodone/Acet 5/325 mg TABLET PO PRN ×2 (08:30→18:58)
--- NOTE | 2017-08-13 10:08 | Electrocardiograph Report ---
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
--- NOTE | 2017-08-13 10:19 | Internal Med Progress Note ---
Date of Encounter: 08/13/17 Time of Encounter: 10:10 - Assessment and plan (1) Toxic metabolic encephalopathy Current Visit: No Status: Resolved Assessment and plan: Most likely combination of meds, pneumonia and post op status Seems to be at baseline today - she is interactive and appropriate. Continue to adjust meds - she is on a lot of narcotics and other altering meds. (2) UTI (urinary tract infection) Current Visit: Yes Status: Acute Assessment and plan: Currently on IV Levaquin pending culture results. Qualifiers: Urinary tract infection type: acute cystitis Hematuria presence: with hematuria Qualified Code(s): N30.01 - Acute cystitis with hematuria (3) Pneumonia Current Visit: No Status: Suspected Assessment and plan: CXR shows LLL infiltrate Recently hospitalized Anticipate discharge on Augmentin pending final cultures Qualifiers: Pneumonia type: due to other aerobic Gram-negative bacteria Laterality: left Lung location: lower lobe of lung Qualified Code(s): J15.6 - Pneumonia due to other Gram-negative bacteria (4) COPD (chronic obstructive pulmonary disease) Current Visit: Yes Status: Chronic Assessment and plan: Changed to PO steroids today. Wean as able. Qualifiers: COPD type: COPD with acute exacerbation Qualified Code(s): J44.1 - Chronic obstructive pulmonary disease with (acute) exacerbation (5) Hypokalemia Current Visit: Yes Status: Acute Assessment and plan: Continue to replace. (6) Anemia Current Visit: Yes Status: Acute Assessment and plan: Recheck H/H this afternoon and give blood if continues to be below 8. Most likely related to recent femur fracture and surgery. Qualifiers: Anemia type: other cause Other causes of anemia: acute posthemorrhagic Qualified Code(s): D62 - Acute posthemorrhagic anemia (7) CAD (coronary artery disease) Current Visit: No Status: Chronic Assessment and plan: Chronic issue Qualifiers: Coronary Disease-Associated Artery/Lesion type: [place] artery [place] vs. transplanted heart: [place] heart Associated angina: without angina Qualified Code(s): I25.10 - Atherosclerotic heart disease of [place] coronary artery without angina pectoris (8) Fracture of hip, left, closed Current Visit: No Status: Acute Assessment and plan: S/P ORIF earlier in month Continue toe touch weight bearing and DVT prophylaxis Qualifiers: Encounter type: subsequent encounter Fracture healing: with routine healing Qualified Code(s): S72.002D - Fracture of unspecified part of neck of left femur, subsequent encounter for closed fracture with routine healing (9) Pain syndrome, chronic Current Visit: No Status: Chronic Assessment and plan: Adjust pain meds due to encephalopathy on admission. - Subjective Interval history: Ms Najera is currently admitted for acute encephalopathy and presumptive pneumonia. She remains moderate to high risk due to potential for worsening clinical status. Ms Najera is more alert. She continues to request multiple doses of pain meds. She feels her breathing might be somewhat better. No fever. Still quite a bit of cough. No GI issues. - Constitutional Vitals: Temp Pulse Resp BP Pulse Ox 98.1 F 75 18 110/52 98 08/13/17 07:17 08/13/17 07:17 08/13/17 07:51 08/13/17 07:17 08/13/17 07:51 General appearance: Present: cooperative, A&O X 3, answers questions appropriately - Head Head exam: Present: normocephalic - Eye Eye exam: Present: EOMI, conjuntiva pink - ENT ENT exam: Present: mucous membranes moist - Respiratory Respiratory exam: Present: decreased breath sounds, rhonchi, wheezes Additional comments: Better air movement than yesterday. Less rales. - Cardiovascular Cardiovascular exam: Present: distant heart sounds. Absent: tachycardia - GI/Abdominal GI/Abdominal exam: Present: soft. Absent: tenderness - Extremities Exam Extremities exam: Present: tenderness, warm - Neurological Exam Neurological exam: Present: alert, oriented X3 - Skin Skin exam: Present: dry, warm. Absent: diaphoretic, rash Internal Medicine: Result - Labs CBC & Chem 7: 08/13/17 04:33 08/13/17 04:33 Labs: Short CBC 08/13/17 Range/Units 04:33 WBC 7.6 (4.3-11.1) K/mcL Hgb 7.4 L (11.5-15.4) g/dL Hct 22.8 L (35.3-44.9) % Plt Count 192 (140-400) K/mcL Neutrophils # 6.8 (1.6-8.9) K/mcL BMP 08/12/17 08/13/17 14:51 04:33 Sodium 129 L 133 L Potassium 3.8 D 3.2 L Chloride 87 L 94 L Carbon Dioxide 33 H 32 H BUN 20 21 Creatinine 0.90 0.86 Glucose 176 H 143 H Calcium 8.5 L 8.8 - ABG Interpretation ABG results: PT/INR, D-dimer PT 12.6 Seconds (9.4-12.1) H 08/11/17 21:48 Consult Discharge Plan - Plan Referrals: Rekha Burrell MD [Primary Care Provider] -
[2017-08-13] MEDS: predniSONE 20 MG TABLET PO SCH (11:48)
[2017-08-13] MEDS ORDERED: Potassium Chloride 20 MEQ, Lidocaine 1% 2 ML in D5% in Water 250 ML IVPB ONE (15:56)
[2017-08-13] MEDS: *HR* OxyCODONE Immed Rel 15 MG TABLET PO PRN ×2 (16:03→22:32)
[2017-08-13 16:20] LABS: Hematocrit 23.9 % (35.3-44.9); Hemoglobin 7.8 g/dL (11.5-15.4)
[2017-08-13] MEDS: Primidone 50 MG TABLET PO SCH (20:22)
[2017-08-13] MEDS: Melatonin 3 MG TABLET PO SCH (20:22)
[2017-08-14] MEDS: Piperacillin/Tazobactam 3.375 GM/200 ML BAG IVPB SCH ×2 (01:48→07:56)
[2017-08-14] MEDS: *HR* OxyCODONE Immed Rel 15 MG TABLET PO PRN ×4 (02:45→18:43)
[2017-08-14] MEDS: Ipratropium/Albuterol Neb 3 ML IH SCH ×6 (03:43→23:58)
[2017-08-14] MEDS: *HR* Heparin 5,000 UNIT/ML VIAL SQ SCH ×2 (05:55→17:29)
[2017-08-14 06:47] LABS: BUN/Creatinine Ratio 26 (6-26); Blood Urea Nitrogen 24 mg/dL (8-23); Calcium 8.7 mg/dL (8.6-10.3); Carbon Dioxide 28 mEq/L (23-29); Chloride 104 mEq/L (98-107); Glucose 112 mg/dL (70-105); Magnesium 2.1 mg/dL (1.6-2.6); Osmolality,Calculated 291 (280-300); Potassium 3.2 mEq/L (3.5-5.1); Sodium 138 mEq/L (136-145); eGFR For African Americans > 60 (> 60); eGFR For Non-African Americans > 60 (> 60)
[2017-08-14 06:58] LABS: Eosinophils % 0.5 %; Hematocrit 23.5 % (35.3-44.9); Hemoglobin 7.5 g/dL (11.5-15.4); Immature Granulocytes % 1.2 % (0-4); Lymphocytes % 21.2 %; Mean Corpuscular HGB Conc 31.9 g/dL (31.6-35.5); Mean Corpuscular Hemoglobin 34.1 pg (28.0-33.3); Mean Corpuscular Volume 106.8 fL (83.0-100.0); Mean Platelet Volume 9.3 fL (9.4-12.4); Monocytes % 7.9 %; Platelet Count 190 K/mcL (140-400); Red Cell Distribution Width 15.1 % (11.5-14.5); Segmented Neutrophils % 68.9 %
[2017-08-14 06:59] LABS: Basophils % 0.3 %; Lymphocytes # 1.4 K/mcL (0.6-4.6); Monocytes # 0.5 K/mcL (0.0-1.3); Neutrophils # 4.5 K/mcL (1.6-8.9)
[2017-08-14] MEDS: BuPROPion SR (12 HR) 150 MG TABLET PO SCH (07:54)
[2017-08-14] MEDS: Potassium Chloride Elixir 20 MEQ/15 ML UDC PO SCH (07:55)
[2017-08-14] MEDS: levoFLOXacin 750 MG TABLET PO SCH (07:55)
[2017-08-14] MEDS: Aspirin 325 MG TABLET PO SCH (07:55)
[2017-08-14] MEDS: clonazePAM 1 MG TABLET PO SCH ×3 (07:55→20:45)
[2017-08-14] MEDS: Sennosides 8.6 MG TABLET PO SCH ×2 (07:55→20:45)
[2017-08-14] MEDS: predniSONE 20 MG TABLET PO SCH (07:55)
[2017-08-14] MEDS: Magnesium Oxide 400 MG TABLET PO SCH ×2 (07:55→20:45)
[2017-08-14] MEDS: Gabapentin 400 MG CAPSULE PO SCH ×3 (07:55→20:45)
[2017-08-14] MEDS: Fluticasone Propionate Nasal 50 MCG/SPRAY BOTTLE NS SCH (07:56)
[2017-08-14] MEDS: Nystatin POWDER 30 GM BOTTLE TP SCH ×2 (07:56→20:46)
[2017-08-14] MEDS: Cefepime HCl 1,000 MG in Water for inj. (sterile) 20 ML 10 ML IVP SCH ×2 (08:00→16:30)
[2017-08-14] MEDS: metOLazone 2.5 MG TABLET PO SCH (13:53)
--- NOTE | 2017-08-14 14:58 | Internal Med Progress Note ---
Date of Encounter: 08/14/17 Time of Encounter: 11:00 - Assessment and plan (1) UTI (urinary tract infection) Current Visit: Yes Status: Acute Assessment and plan: Culture with MDRO Enterobacter. Abx changed to Cefipime. Will most likely need a week of IV abx so will try to make arrangements tomorrow. Qualifiers: Urinary tract infection type: acute cystitis Hematuria presence: with hematuria Qualified Code(s): N30.01 - Acute cystitis with hematuria (2) Multiple drug resistant organism (MDRO) culture positive Current Visit: Yes Status: Acute Assessment and plan: Enterobacter in urine. (3) Pneumonia Current Visit: No Status: Suspected Assessment and plan: CXR shows LLL infiltrate - clinically improving at this time. Recently hospitalized Anticipate discharge on Augmentin pending final cultures Qualifiers: Pneumonia type: due to other aerobic Gram-negative bacteria Laterality: left Lung location: lower lobe of lung Qualified Code(s): J15.6 - Pneumonia due to other Gram-negative bacteria (4) COPD (chronic obstructive pulmonary disease) Current Visit: Yes Status: Chronic Assessment and plan: On PO steroids. Will wean off as able. Qualifiers: COPD type: COPD with acute exacerbation Qualified Code(s): J44.1 - Chronic obstructive pulmonary disease with (acute) exacerbation (5) Hypokalemia Current Visit: Yes Status: Acute Assessment and plan: Continue to replace. (6) Anemia Current Visit: Yes Status: Acute Assessment and plan: Hemoglobin low again today. Pt had recent fracture of her L femur Will transfuse one unit of blood today. Recheck in AM. Qualifiers: Anemia type: other cause Other causes of anemia: acute posthemorrhagic Qualified Code(s): D62 - Acute posthemorrhagic anemia (7) CAD (coronary artery disease) Current Visit: No Status: Chronic Assessment and plan: Chronic issue Qualifiers: Coronary Disease-Associated Artery/Lesion type: [place] artery [place] vs. transplanted heart: [place] heart Associated angina: without angina Qualified Code(s): I25.10 - Atherosclerotic heart disease of [place] coronary artery without angina pectoris (8) Fracture of hip, left, closed Current Visit: No Status: Acute Assessment and plan: S/P ORIF earlier in month Continue toe touch weight bearing and DVT prophylaxis Qualifiers: Encounter type: subsequent encounter Fracture healing: with routine healing Qualified Code(s): S72.002D - Fracture of unspecified part of neck of left femur, subsequent encounter for closed fracture with routine healing (9) Pain syndrome, chronic Current Visit: No Status: Chronic Assessment and plan: Adjust pain meds due to encephalopathy on admission. - Subjective Interval history: Ms Najera is currently admitted for acute encephalopathy and presumptive pneumonia. She remains moderate to high risk due to potential for worsening clinical status. Ms Najera says she is feeling somewhat better today. Abx changed overnight due to resistant UTI. Now on Cefipime. Breathing approaching baseline at this time. Still wants pain meds. Wants to go back to SNF soon. Appetite OK. No GI issues. - Constitutional Vitals: Temp Pulse Resp BP Pulse Ox 97.9 F 61 16 117/36 96 08/14/17 11:40 08/14/17 11:40 08/14/17 11:40 08/14/17 11:40 08/14/17 11:40 General appearance: Present: cooperative, A&O X 3, answers questions appropriately - Head Head exam: Present: atraumatic, normocephalic - Eye Eye exam: Present: EOMI, conjuntiva pink - ENT ENT exam: Present: mucous membranes dry - Respiratory Respiratory exam: Present: rhonchi, wheezes - Cardiovascular Cardiovascular exam: Present: distant heart sounds, RRR - GI/Abdominal GI/Abdominal exam: Present: normal bowel sounds, soft. Absent: tenderness - Extremities Exam Extremities exam: Present: tenderness, warm - Neurological Exam Neurological exam: Present: alert, oriented X3 - Skin Skin exam: Present: warm. Absent: rash Internal Medicine: Result - Labs CBC & Chem 7: 08/14/17 05:55 08/14/17 05:55 Labs: Short CBC 08/13/17 08/14/17 Range/Units 16:12 05:55 WBC 6.5 (4.3-11.1) K/mcL Hgb 7.8 L 7.5 L (11.5-15.4) g/dL Hct 23.9 L 23.5 L (35.3-44.9) % Plt Count 190 (140-400) K/mcL Neutrophils # 4.5 (1.6-8.9) K/mcL BMP 08/14/17 05:55 Sodium 138 Potassium 3.2 L Chloride 104 Carbon Dioxide 28 BUN 24 H Creatinine 0.92 Glucose 112 H Calcium 8.7 - ABG Interpretation ABG results: PT/INR, D-dimer PT 12.6 Seconds (9.4-12.1) H 08/11/17 21:48 Consult Discharge Plan - Plan Referrals: Rekha Burrell MD [Primary Care Provider] -
[2017-08-14] MEDS ORDERED: Potassium Chloride 20 MEQ, Lidocaine 1% 2 ML in D5% in Water 250 ML IVPB ONE (15:05)
[2017-08-14] MEDS ORDERED: 0.9 % Sodium Chloride 250 ML IVC SCH (15:15)
[2017-08-14] MEDS: *HR* HYDROmorphone (PF) 1 MG/ML SYRINGE IVP PRN (20:38)
[2017-08-14] MEDS: Primidone 50 MG TABLET PO SCH (20:45)
[2017-08-14] MEDS: Melatonin 3 MG TABLET PO SCH (20:51)
[2017-08-15] MEDS: *HR* HYDROmorphone (PF) 1 MG/ML SYRINGE IVP PRN ×2 (02:41→08:29)
[2017-08-15] MEDS: Ipratropium/Albuterol Neb 3 ML IH SCH ×3 (03:49→11:12)
[2017-08-15] MEDS: *HR* OxyCODONE Immed Rel 15 MG TABLET PO PRN ×2 (04:22→13:04)
[2017-08-15 04:41] LABS: Basophils % 0.2 %; Eosinophils # 0.1 K/mcL (0.0-0.6); Eosinophils % 1.2 %; Hematocrit 27.7 % (35.3-44.9); Immature Granulocytes % 0.9 % (0-4); Lymphocytes # 1.4 K/mcL (0.6-4.6); Lymphocytes % 25.3 %; Mean Corpuscular HGB Conc 32.5 g/dL (31.6-35.5); Mean Corpuscular Hemoglobin 33.3 pg (28.0-33.3); Mean Corpuscular Volume 102.6 fL (83.0-100.0); Mean Platelet Volume 9.2 fL (9.4-12.4); Monocytes # 0.5 K/mcL (0.0-1.3); Monocytes % 8.2 %; Neutrophils # 3.7 K/mcL (1.6-8.9); Platelet Count 208 K/mcL (140-400); Red Cell Distribution Width 16.1 % (11.5-14.5); Segmented Neutrophils % 64.2 %
[2017-08-15 05:07] LABS: BUN/Creatinine Ratio 22 (6-26); Blood Urea Nitrogen 19 mg/dL (8-23); Carbon Dioxide 26 mEq/L (23-29); Chloride 105 mEq/L (98-107); Glucose 94 mg/dL (70-105); Osmolality,Calculated 286 (280-300); Potassium 3.9 mEq/L (3.5-5.1); Sodium 137 mEq/L (136-145); eGFR For African Americans > 60 (> 60); eGFR For Non-African Americans > 60 (> 60)
[2017-08-15] MEDS: Cefepime HCl 1,000 MG in Water for inj. (sterile) 20 ML 10 ML IVP SCH (05:07)
[2017-08-15] MEDS: *HR* Heparin 5,000 UNIT/ML VIAL SQ SCH (05:07)
[2017-08-15 06:31] VITALS: BP 132/61
[2017-08-15] MEDS: *HR* HYDROcodone/Acet 5/325 mg TABLET PO PRN (06:37)
[2017-08-15] MEDS: BuPROPion SR (12 HR) 150 MG TABLET PO SCH (08:18)
[2017-08-15] MEDS: Aspirin 325 MG TABLET PO SCH (08:18)
[2017-08-15] MEDS: clonazePAM 1 MG TABLET PO SCH (08:19)
[2017-08-15] MEDS: predniSONE 20 MG TABLET PO SCH (08:19)
[2017-08-15] MEDS: Gabapentin 400 MG CAPSULE PO SCH (08:19)
[2017-08-15] MEDS: levoFLOXacin 750 MG TABLET PO SCH (08:19)
[2017-08-15] MEDS: Sennosides 8.6 MG TABLET PO SCH (08:19)
[2017-08-15] MEDS: Magnesium Oxide 400 MG TABLET PO SCH (08:19)
[2017-08-15] MEDS: Potassium Chloride Elixir 20 MEQ/15 ML UDC PO SCH (08:20)
[2017-08-15] MEDS: Nystatin POWDER 30 GM BOTTLE TP SCH (08:21)
[2017-08-15] MEDS: Fluticasone Propionate Nasal 50 MCG/SPRAY BOTTLE NS SCH (08:21)
--- NOTE | 2017-08-15 08:52 | Discharge Summary ---
<Paulino Lyn - Last Filed: 08/15/17 15:19> Date of Encounter: 08/15/17 Time of Encounter: 08:50 - Discharge Diagnosis (1) HCAP (healthcare-associated pneumonia) Priority: Primary Status: Acute (2) UTI (urinary tract infection) Priority: Secondary Status: Acute Qualifiers: Urinary tract infection type: acute cystitis Hematuria presence: with hematuria Qualified Code(s): N30.01 - Acute cystitis with hematuria (3) COPD (chronic obstructive pulmonary disease) Priority: Secondary Status: Chronic Qualifiers: COPD type: COPD with acute exacerbation Qualified Code(s): J44.1 - Chronic obstructive pulmonary disease with (acute) exacerbation (4) Hypokalemia Priority: Secondary Status: Acute (5) Altered mental status Priority: Secondary Status: Acute Qualifiers: Altered mental status type: transient alteration of awareness Qualified Code(s): R40.4 - Transient alteration of awareness (6) Acute on chronic respiratory failure with hypoxia and hypercapnia Priority: Secondary Status: Acute (7) Fracture of hip, left, closed Priority: Secondary Status: Acute Qualifiers: Encounter type: subsequent encounter Fracture healing: with routine healing Qualified Code(s): S72.002D - Fracture of unspecified part of neck of left femur, subsequent encounter for closed fracture with routine healing (8) Atrial fibrillation with RVR Priority: Secondary Status: Resolved (9) DVT prophylaxis Priority: Secondary Status: Acute - Discharge Medications Prescriptions: Amoxicillin/Clavulanate [Augmentin] 500 mg PO BIDWM 7 Days #14 tablet FentaNYL PATCH [Duragesic] 200 mcg TD Q72H #3 patch.td72 LORazepam [Ativan] 1 mg PO Q4H #8 tablet Morphine Immed Rel [Morphine Sulfate] 30 mg PO Q2H #10 tablet OxyCODONE Immed Rel [Roxicodone 15 MG] 30 mg PO Q4H PRN #8 tablet PRN Reason: Pain Sulfamethoxazole/Trimeth DS [Bactrim DS] 1 each PO BID 7 Days #14 tablet Home Medications: Docusate [Colace] 100 mg PO BID 06/17/15 [History] Fluticasone Propionate Nasal [Flonase] 100 mcg NS DAILY 06/17/15 [History] Furosemide [Lasix] 80 mg PO TID 06/17/15 [History] Omeprazole [PriLOSEC] 20 mg PO BIDAC 06/17/15 [History] Polyethylene Glycol 3350 [MiraLAX] 17 gm PO DAILY 06/17/15 [History] Potassium Chloride [Klor-Con Sprinkle] 60 meq PO TID 06/17/15 [History] Promethazine [Phenergan] 12.5 mg PO Q4H 06/17/15 [History] Sennosides [Senna] 8.6 mg PO BID 06/17/15 [History] Sertraline [Zoloft] 200 mg PO DAILY 06/17/15 [History] Albuterol Neb [Proventil Neb] 2.5 mg IH TID 07/06/16 [History] Aspirin 325 mg PO DAILY 07/06/16 [History] BuPROPion SR (12 HR) [Wellbutrin SR] 300 mg PO DAILY 07/06/16 [History] GuaiFENesin ER [Mucinex] 600 mg PO BID 07/06/16 [History] Ipratropium/Albuterol Neb [Duoneb] 3 ml IH Q4H PRN 07/06/16 [History] Nitroglycerin [Nitrostat] 0.4 mg SL Q5M PRN 07/06/16 [History] metOLazone [Zaroxolyn] 2.5 mg PO Q48H 07/06/16 [History] Acetaminophen [Tylenol 650mg SUPP] 650 mg RC Q6H PRN 07/29/17 [History] Amino Acids/Protein Hydrolys [Pro-Stat Awc Liquid Packet] 30 ml PO DAILY [History] Atropine Sulfate in 0.9% NaCl [Atropine 0.01%-Ns Eye Drops] 2 drop SL Q2H PRN [History] Bisacodyl [Dulcolax] 10 mg RC DAILY PRN 07/29/17 [History] Buspirone HCl [Buspar] 20 mg PO BID 07/29/17 [History] Calcium Polycarbophil [Fibercon] 1,250 mg PO BID 07/29/17 [History] Carvedilol 12.5 mg PO BID 07/29/17 [History] Dexamethasone [Decadron] 4 mg PO DAILY 07/29/17 [History] Hyoscyamine SL [Levsin Sl] 0.125 - 0.25 mg SL Q2H PRN 07/29/17 [History] Magnesium Oxide [Mag-Ox] 400 mg PO BID 07/29/17 [History] Melatonin 10 mg PO HS 07/29/17 [History] Gabapentin [Neurontin] 800 mg PO TID #90 capsule 08/04/17 [Rx] Phenytoin ER [Dilantin ER] 100 mg PO TID #90 capsule 08/04/17 [Rx] Primidone [Mysoline] 50 mg PO HS #30 tablet 08/04/17 [Rx] clonazePAM [Klonopin] 1 mg PO TID #20 tablet 08/04/17 [Rx] Acetaminophen [Tylenol Arthritis] 650 mg PO Q6H 08/12/17 [History] Nystatin POWDER [Nystop] 1 appl TP BID 08/12/17 [History] Scopolamine Patch [Transderm-Scop] 2 each TD Q72H 08/12/17 [History] Amoxicillin/Clavulanate [Augmentin] 500 mg PO BIDWM 7 Days #14 tablet 08/15/17 [ Rx] FentaNYL PATCH [Duragesic] 200 mcg TD Q72H #3 patch.td72 08/15/17 [Rx] LORazepam [Ativan] 1 mg PO Q4H #8 tablet 08/15/17 [Rx] Morphine Immed Rel [Morphine Sulfate] 30 mg PO Q2H #10 tablet 08/15/17 [Rx] OxyCODONE Immed Rel [Roxicodone 15 MG] 30 mg PO Q4H PRN #8 tablet 08/15/17 [Rx] Sulfamethoxazole/Trimeth DS [Bactrim DS] 1 each PO BID 7 Days #14 tablet [Rx] Allergies/Adverse Reactions: 3 Allergy/AdvReac Type Severity Reaction Status Date / Time tetanus toxoid, adsorbed Allergy Rash Verified 06/17/15 16:10 baclofen AdvReac Confusion Verified 07/20/16 09:49 butorphanol AdvReac Confusion Verified 07/20/16 09:49 Date of admission: 08/12/17 00:11 Primary care physician: Rekha Burrell MD Consults: 08/12/17 00:28 Consult to Nurse Navigator [CONS] Routine Comment: 08/12/17 01:26 Consult to Nutrition [CONS] Routine Comment: Consulting Provider: NUTRITION Reason for Dietary Consult: MST Score Consult to Extracorporeal Circulation Specialist [CONS] Routine Reason for SW Consult: patient is from [facility] - Patient Status Disposition: Transfer SNF Condition: Serious Functional capacity at discharge: uses cane/walker Overall status at discharge: patient is progressing back to baseline - Discharge Instructions Instructions: Sulfamethoxazole/Trimethoprim (By mouth), Atrial Fibrillation (DC ), Acute Respiratory Distress Syndrome (DC), Urinary Tract Infection in Women ( DC), Chronic Obstructive Pulmonary Disease (DC), Sepsis (DC), Anemia (GEN), Pneumonia (DC) Follow Up With: Rekha Burrell MD [Primary Care Provider] - - Diet and Activity Activity: increase activity as tolerated Diet: advance to your usual diet Hospital course: Ms. Najera is a 72 year old female s/p ORIF Lt femur after fracture who presented to the ED from SNF for AMS and SOB. CXR demonstrated LLL infiltrate and patient was started on vanc, zosyn, and levaquin, and placed on bipap. Patient was believed to be obtunded due to PNA/acute exacerbation of COPD. Patient's abx was deescalated to Augmentin, and patient clinically improved throughout hospital stay. Patient was D/C'ed with Augmentin. UTI was also considered due to patient's history of UTI's. Patient's UTI was initially treated with levaquin. Patient urine came back positive for enterobacter cloacae with MDRO. Patient was treated with cefepime for 1 day, then discharged with Bactrim for treatment of UTI. Patient was found to be hypokalemic during hospitalization, and K+ was replaced orally and corrected. Patient's only compliant during discharge was continued pain of her left hip, where she had the surgery. Patient to have follow up with PCP within 1 week of discharge. Time spent discussing smoking cessation with patient: more than 10 minutes - Time Spent with Patient Total time spent providing and/or coordinating discharge services: Greater than 30 minutes - Constitutional Vitals: Temp Pulse Resp BP Pulse Ox 97.8 F 71 18 132/61 96 08/15/17 06:00 08/15/17 06:00 08/15/17 07:48 08/15/17 06:00 08/15/17 07:48 General appearance: Present: cooperative, A&O X 3, pleasant, answers questions appropriately Exam: left hip pain, site of surgery - Head Head exam: Present: atraumatic, normocephalic - Respiratory Respiratory exam: Present: CTAB, prolonged expiratory phase. Absent: accessory muscle use, rales, rhonchi, wheezes - Cardiovascular Cardiovascular exam: Present: RRR, +S1, +S2. Absent: diastolic murmur, gallop, rubs, systolic murmur - GI/Abdominal GI/Abdominal exam: Present: normal bowel sounds, soft, no peritoneal signs. Absent: distended, tenderness - Extremities Exam Extremities exam: Present: warm, radial pulses palpable and symmetrical. Absent : calf tenderness, cyanotic, pedal edema - Psychiatric Psychiatric exam: Present: normal affect, normal mood <Alexis Turner - Last Filed: 08/15/17 18:31> Date of Encounter: 08/15/17 - Discharge Diagnosis (1) UTI (urinary tract infection) Status: Acute Qualifiers: Urinary tract infection type: acute cystitis Hematuria presence: with hematuria Qualified Code(s): N30.01 - Acute cystitis with hematuria (2) Multiple drug resistant organism (MDRO) culture positive Priority: Secondary Status: Acute (3) Pneumonia Priority: Secondary Status: Resolved Qualifiers: Pneumonia type: due to other aerobic Gram-negative bacteria Laterality: left Lung location: lower lobe of lung Qualified Code(s): J15.6 - Pneumonia due to other Gram-negative bacteria (4) COPD (chronic obstructive pulmonary disease) Status: Resolved Qualifiers: COPD type: COPD with acute exacerbation Qualified Code(s): J44.1 - Chronic obstructive pulmonary disease with (acute) exacerbation (5) Hypokalemia Status: Resolved (6) Anemia Priority: Secondary Status: Chronic Qualifiers: Anemia type: other cause Other causes of anemia: acute posthemorrhagic Qualified Code(s): D62 - Acute posthemorrhagic anemia (7) CAD (coronary artery disease) Priority: Secondary Status: Chronic Qualifiers: Coronary Disease-Associated Artery/Lesion type: [place] artery [place] vs. transplanted heart: [place] heart Associated angina: without angina Qualified Code(s): I25.10 - Atherosclerotic heart disease of [place] coronary artery without angina pectoris (8) Fracture of hip, left, closed Status: Chronic Qualifiers: Encounter type: subsequent encounter Fracture healing: with routine healing Qualified Code(s): S72.002D - Fracture of unspecified part of neck of left femur, subsequent encounter for closed fracture with routine healing (9) Pain syndrome, chronic Priority: Secondary Status: Chronic Date of admission: 08/12/17 00:11 Primary care physician: Rekha Burrell MD Consults: 08/12/17 00:28 Consult to Nurse Navigator [CONS] Routine Comment: 08/12/17 01:26 Consult to Nutrition [CONS] Routine Comment: Consulting Provider: NUTRITION Reason for Dietary Consult: MST Score Consult to Extracorporeal Circulation Specialist [CONS] Routine Reason for SW Consult: patient is from [facility] course: Ms. Najera is a 72 year old female - Time Spent with Patient Total time spent providing and/or coordinating discharge services: 39min - Constitutional Vitals: Temp Pulse Resp BP Pulse Ox 97.8 F 71 18 132/61 96 08/15/17 06:00 08/15/17 06:00 08/15/17 07:48 08/15/17 06:00 08/15/17 07:48 - Attending Attestation I examined this patient and my medical decision-making was reviewed with the Resident Physician on 08/15/17. I agree with the documented findings, disposition and treatment plan as described except to the extent set forth below. Ms Najera has been admitted for acute encephalopathy, UTI and resp failure. She is now afebrile with stable vitals. She is alert and feels at baseline and is ready for d/c to ECF. Exam Alert. Comfortable Mucus membranes dry Heart not tachy Lungs with scattered rhonchi Abd soft Plan D/C to ECF today
--- NOTE | 2017-08-15 09:05 | Physician Discharge Referral ---
ExtendedCare Referral Info Transfer To: [facility] Provider in Charge after Transfer: PCP Institutional Level of Care: Skilled - Diagnosis (1) HCAP (healthcare-associated pneumonia) Status: Acute (2) UTI (urinary tract infection) Status: Acute (3) COPD (chronic obstructive pulmonary disease) Status: Chronic (4) Hypokalemia Status: Acute (5) Altered mental status Status: Acute (6) Acute on chronic respiratory failure with hypoxia and hypercapnia Status: Acute (7) Fracture of hip, left, closed Status: Acute (8) Atrial fibrillation with RVR Status: Resolved (9) DVT prophylaxis Status: Acute - Transfer Medications Prescriptions: Sulfamethoxazole/Trimeth DS [Bactrim DS] 1 each PO BID 7 Days #14 tablet Home Medications: Docusate [Colace] 100 mg PO BID 06/17/15 [History] Fluticasone Propionate Nasal [Flonase] 100 mcg NS DAILY 06/17/15 [History] Furosemide [Lasix] 80 mg PO TID 06/17/15 [History] Omeprazole [PriLOSEC] 20 mg PO BIDAC 06/17/15 [History] Polyethylene Glycol 3350 [MiraLAX] 17 gm PO DAILY 06/17/15 [History] Potassium Chloride [Klor-Con Sprinkle] 60 meq PO TID 06/17/15 [History] Promethazine [Phenergan] 12.5 mg PO Q4H 06/17/15 [History] Sennosides [Senna] 8.6 mg PO BID 06/17/15 [History] Sertraline [Zoloft] 200 mg PO DAILY 06/17/15 [History] Albuterol Neb [Proventil Neb] 2.5 mg IH TID 07/06/16 [History] Aspirin 325 mg PO DAILY 07/06/16 [History] BuPROPion SR (12 HR) [Wellbutrin SR] 300 mg PO DAILY 07/06/16 [History] GuaiFENesin ER [Mucinex] 600 mg PO BID 07/06/16 [History] Ipratropium/Albuterol Neb [Duoneb] 3 ml IH Q4H PRN 07/06/16 [History] Nitroglycerin [Nitrostat] 0.4 mg SL Q5M PRN 07/06/16 [History] metOLazone [Zaroxolyn] 2.5 mg PO Q48H 07/06/16 [History] Acetaminophen [Tylenol 650mg SUPP] 650 mg RC Q6H PRN 07/29/17 [History] Amino Acids/Protein Hydrolys [Pro-Stat Awc Liquid Packet] 30 ml PO DAILY [History] Atropine Sulfate in 0.9% NaCl [Atropine 0.01%-Ns Eye Drops] 2 drop SL Q2H PRN [History] Bisacodyl [Dulcolax] 10 mg RC DAILY PRN 07/29/17 [History] Buspirone HCl [Buspar] 20 mg PO BID 07/29/17 [History] Calcium Polycarbophil [Fibercon] 1,250 mg PO BID 07/29/17 [History] Carvedilol 12.5 mg PO BID 07/29/17 [History] Dexamethasone [Decadron] 4 mg PO DAILY 07/29/17 [History] Hyoscyamine SL [Levsin Sl] 0.125 - 0.25 mg SL Q2H PRN 07/29/17 [History] Magnesium Oxide [Mag-Ox] 400 mg PO BID 07/29/17 [History] Melatonin 10 mg PO HS 07/29/17 [History] FentaNYL PATCH [Duragesic] 200 mcg TD Q72H #10 patch.td72 08/04/17 [Rx] Gabapentin [Neurontin] 800 mg PO TID #90 capsule 08/04/17 [Rx] LORazepam [Ativan] 1 mg PO Q4H #25 tablet 08/04/17 [Rx] Morphine Immed Rel [Morphine Sulfate] 30 mg PO Q2H #25 tablet 08/04/17 [Rx] Oxycodone HCl [Roxicodone 30] 30 mg PO Q4H PRN #20 tablet 08/04/17 [Rx] Phenytoin ER [Dilantin ER] 100 mg PO TID #90 capsule 08/04/17 [Rx] Primidone [Mysoline] 50 mg PO HS #30 tablet 08/04/17 [Rx] clonazePAM [Klonopin] 1 mg PO TID #20 tablet 08/04/17 [Rx] Acetaminophen [Tylenol Arthritis] 650 mg PO Q6H 08/12/17 [History] Nystatin POWDER [Nystop] 1 appl TP BID 08/12/17 [History] Scopolamine Patch [Transderm-Scop] 2 each TD Q72H 08/12/17 [History] Sulfamethoxazole/Trimeth DS [Bactrim DS] 1 each PO BID 7 Days #14 tablet [Rx] Allergies/Adverse Reactions: 3 Allergy/AdvReac Type Severity Reaction Status Date / Time tetanus toxoid, adsorbed Allergy Rash Verified 06/17/15 16:10 baclofen AdvReac Confusion Verified 07/20/16 09:49 butorphanol AdvReac Confusion Verified 07/20/16 09:49 - Respiratory Orders Smoking Cessation: Smoking cessation has been advised. For more information, call the [place] Tobacco Quit Line at 5-449-LWQDNOW. CERTIFICATION: I certify that the transfer of the above named patient to an Extended Care Facility is necessary for the continuing treatment of the diagnosis listed. The above information is true and accurate reflection of patient's current condition. Confidential - Redisclosure prohibited without a patient's written consent.
[2017-08-15] MEDS: *HR* FentaNYL PATCH 100 MCG PATCH TD SCH (13:05)
== END 2017-08-15 14:30 | DRG 177 ==
LOC: EMEROO 21:31 → SUATTDRO 08-12 00:11 → 2NENU 08-12 00:11
PROVIDERS: ADMIT Internal Medicine; ATTEND Internal Medicine